=== PATIENT | female | born 1955 | race Caucasian/White ===

== ENCOUNTER 2018-03-08 03:13 | Inpatient (IN) | payer MEDICARE ==
[~2018-03-08] VITALS: Ht 167.6 cm; Wt 129.8 kg
[2018-03-08] MEDS ORDERED: LATA2.5D3 EACHEYE (03:31)
[2018-03-08] MEDS ORDERED: PRED5DRO16 OD (03:31)
[2018-03-08] MEDS ORDERED: ACET325T9 PO (03:31)
[2018-03-08] MEDS ORDERED: MINE3.5O31 OU (03:31)
[2018-03-08] MEDS ORDERED: CHOL10003 PO (03:31)
[2018-03-08] MEDS ORDERED: POLY17PO5 PO (03:31)
[2018-03-08] MEDS ORDERED: ATOR10TA60 PO (03:31)
[2018-03-08] MEDS ORDERED: ASPI-621 PO (03:31)
[2018-03-08] MEDS ORDERED: GABA-585 PO (03:31)
[2018-03-08] MEDS ORDERED: APIX5TAB3 PO (03:31)
[2018-03-08] MEDS ORDERED: DEXT15DR5 EACHEYE (03:31)
[2018-03-08] MEDS ORDERED: NYST60PO TP (03:31)
[2018-03-08] MEDS ORDERED: MOXI3DRO2 OD (03:31)
[2018-03-08] MEDS ORDERED: CARB1TAB2 PO (03:31)
[2018-03-08] MEDS ORDERED: TIMO10DR5 EACHEYE (03:31)
[2018-03-08] MEDS ORDERED: BRIM5DRO4 OU (03:31)
[2018-03-08] MEDS ORDERED: QUET100T4 PO (03:31)
[2018-03-08] MEDS ORDERED: SENN1TAB7 PO (03:31)
[2018-03-08] MEDS ORDERED: QUET50TA5 PO (03:31)
[2018-03-08] MEDS ORDERED: VENL150C6 PO (03:31)
[2018-03-08] MEDS ORDERED: LEVO75TA5 PO (03:31)
[2018-03-08] MEDS ORDERED: METHYL SALICYLATE/MENTHOL TOPICAL OINTMENT 29GM TUBE. TP PRN (03:45)
[2018-03-08] MEDS ORDERED: ACETAMINOPHEN 325 MG TABLET PO PRN (03:45)
[2018-03-08] MEDS ORDERED: MAG HYDROX/AL HYDROX/SIMETH 30 ML ORAL.SUSP PO PRN (03:45)
[2018-03-08] MEDS ORDERED: ANTI-COAG MONITOR BY PHARMACY. MC PRN (05:00)
[2018-03-08] MEDS ORDERED: LEVOTHYROXINE 75 MCG TABLET PO SCH (07:30)
[2018-03-08] MEDS ORDERED: POLYETHYLENE GLYCOL 3350 17 GM PACKET. PO PRN (09:00)
[2018-03-08 09:27] LABS: BASO % 1 % (0-3); EOS # 0.1 x10^3/uL (0.0-0.7); EOS % 1 % (0-3); HEMATOCRIT 41.6 % (36.0-47.0); HEMOGLOBIN 13.9 g/dL (12.0-15.5); LYMPH # 0.9 x10^3/uL (1.0-4.8); LYMPH % 21 % (24-48); MEAN CORPUSCULAR HEMOGLOBIN 31 pg (25-35); MEAN CORPUSCULAR HGB CONC 34 g/dL (31-37); MEAN CORPUSCULAR VOLUME 92 fL (79-100); MONO # 0.4 x10^3/uL (0.0-1.1); MONO % 8 % (0-9); NEUT % 68 % (31-73); PLATELET COUNT 376 x10^3/uL (140-400); RED BLOOD COUNT 4.53 x10^6/uL (3.50-5.40); RED CELL DISTRIBUTION WIDTH 13.4 % (11.5-14.5); WHITE BLOOD COUNT 4.4 x10^3/uL (4.0-11.0)
[2018-03-08 09:48] LABS: ALBUMIN/GLOBULIN RATIO 0.8 (1.0-1.7); CALCIUM 9.3 mg/dL (8.5-10.1); CREATININE 0.8 mg/dL (0.6-1.0); GFR 73.2; MAGNESIUM 2.1 mg/dL (1.8-2.4); POTASSIUM 4.2 mmol/L (3.5-5.1); TOTAL BILIRUBIN 0.5 mg/dL (0.2-1.0); TOTAL PROTEIN 6.8 g/dL (6.4-8.2)
[2018-03-08] MEDS: CHOLECALCIFEROL (VITAMIN D3) 1,000 UNIT TABLET PO SCH (10:53)
[2018-03-08] MEDS: SENNOSIDES/DOCUSATE 8.6/50MG TABLET. PO SCH (10:53)
[2018-03-08] MEDS: VENLAFAXINE 50 MG TABLET. PO SCH ×3 (10:53→20:26)
[2018-03-08] MEDS: QUEtiapine 50 MG TABLET. PO SCH ×2 (10:53→20:28)
[2018-03-08] MEDS: CARBIDOPA/LEVODOPA 25/100MG TABLET PO SCH ×4 (10:53→20:26)
[2018-03-08] MEDS: APIXABAN 5 MG TABLET. PO SCH ×2 (10:53→20:26)
[2018-03-08] MEDS: GABAPENTIN 100 MG CAPSULE. PO SCH ×3 (10:54→20:26)
[2018-03-08] MEDS: prednisoLONE ACETATE 1% OPHTH SUSPENSION 5ML BOTTLE. OD SCH ×2 (10:56→11:00)
[2018-03-08] MEDS: MOXIFLOXACIN 0.5% OPHTH SOLUTION 3ML BOTTLE. OD SCH ×5 (10:57→20:23)
[2018-03-08] MEDS: BRIMONIDINE 0.2% OPHTH SOLUTION 5ML BOTTLE. OU SCH ×3 (10:58→20:23)
[2018-03-08] MEDS: POLYVINYL ALCOHOL 1.4% OPHTH SOLUTION 15ML BOTTLE. OU SCH ×5 (10:59→20:24)
[2018-03-08] MEDS: TIMOLOL 0.5% OPHTH SOLUTION 5ML BOTTLE. OU SCH ×2 (11:00→20:24)
[2018-03-08 13:43] LABS: THYROID STIM HORMONE (TSH) 4.955 uIU/mL (0.358-3.740)
[2018-03-08 16:38] VITALS: BP 146/92
[2018-03-08] MEDS ORDERED: traZODone 50 MG TABLET. PO PRN (19:30)
[2018-03-08] MEDS: MINERAL OIL/PETROLATUM,WHITE OPHTH OINT 3.5GM TUBE. OU SCH (20:24)
[2018-03-08] MEDS: LATANOPROST 0.005% OPHTH SOLUTION 2.5ML BOTTLE. OU SCH (20:25)
[2018-03-08] MEDS: traZODone 50 MG TABLET. PO SCH (20:26)
[2018-03-08] MEDS: ATORVASTATIN CALCIUM 10 MG TABLET. PO SCH (20:28)
[2018-03-08] MEDS: NYSTATIN TOPICAL POWDER 15GM BOTTLE. TP PRN (20:46)
[2018-03-08 21:18] LABS: BACTERIA,URINE MANY /HPF (0-FEW); BILIRUBIN,URINE NEG (NEG); CLARITY,URINE CLOUDY; COLOR,URINE YELLOW; GLUCOSE,URINE NEG (NEG); NITRITE,URINE POS (NEG); SQUAMOUS EPITHELIAL CELL,UR MOD /LPF; UROBILINOGEN,URINE 0.2 mg/dL (0.2 mg/dL); WBC,URINE >40 /HPF (0-4)
[2018-03-08 22:16] LABS: THYROXINE 8.3 ug/dL (4.5-12.0)
--- NOTE | 2018-03-08 23:05 | PDOC ---
Exam Note: Massimo Note: Please also refer to the separate dictated note~for this date of service dictated separately.~Patient seen individually. Discussed the patient with Nursing staff reviewed the chart.~Reviewed interim history and current functioning. Reviewed vital signs,~Labs/ Radiology~and current medications noted below. Continue current treatment with the changes noted in the dictated addendum note Assessment: Vital Signs: Vital Signs Date Time Temp Pulse Resp B/P (MAP) Pulse Ox O2 Delivery O2 Flow Rate FiO2 03/08/18 16:38 98.3 87 18 146/92 (110) 95 Room Air Labs: Laboratory Tests Test 03/08/18 09:08 03/08/18 18:18 White Blood Count 4.4 x10^3/uL (4.0-11.0) Red Blood Count 4.53 x10^6/uL (3.50-5.40) Hemoglobin 13.9 g/dL (12.0-15.5) Hematocrit 41.6 % (36.0-47.0) Mean Corpuscular Volume 92 fL (79-100) Mean Corpuscular Hemoglobin 31 pg (25-35) Mean Corpuscular Hemoglobin Concent 34 g/dL (31-37) Red Cell Distribution Width 13.4 % (11.5-14.5) Platelet Count 376 x10^3/uL (140-400) Neutrophils (%) (Auto) 68 % (31-73) Lymphocytes (%) (Auto) 21 % (24-48) L Monocytes (%) (Auto) 8 % (0-9) Eosinophils (%) (Auto) 1 % (0-3) Basophils (%) (Auto) 1 % (0-3) Neutrophils # (Auto) 3.0 x10^3uL (1.8-7.7) Lymphocytes # (Auto) 0.9 x10^3/uL (1.0-4.8) L Monocytes # (Auto) 0.4 x10^3/uL (0.0-1.1) Eosinophils # (Auto) 0.1 x10^3/uL (0.0-0.7) Basophils # (Auto) 0.0 x10^3/uL (0.0-0.2) Sodium Level 144 mmol/L (136-145) Potassium Level 4.2 mmol/L (3.5-5.1) Chloride Level 108 mmol/L (98-107) H Carbon Dioxide Level 31 mmol/L (21-32) Anion Gap 5 (6-14) L Blood Urea Nitrogen 12 mg/dL (7-20) Creatinine 0.8 mg/dL (0.6-1.0) Estimated GFR (Cockcroft-Gault) 73.2 BUN/Creatinine Ratio 15 (6-20) Glucose Level 117 mg/dL (70-99) H Calcium Level 9.3 mg/dL (8.5-10.1) Magnesium Level 2.1 mg/dL (1.8-2.4) Iron Level 65 ug/dL (50-170) Total Iron Binding Capacity 265 ug/dL (250-450) Iron Saturation 25 % (15-34) Total Bilirubin 0.5 mg/dL (0.2-1.0) Aspartate Amino Transferase (AST) 15 U/L (15-37) Alanine Aminotransferase (ALT) 22 U/L (14-59) Alkaline Phosphatase 108 U/L (46-116) Total Protein 6.8 g/dL (6.4-8.2) Albumin 3.0 g/dL (3.4-5.0) L Albumin/Globulin Ratio 0.8 (1.0-1.7) L Triglycerides Level 77 mg/dL (0-150) Cholesterol Level 153 mg/dL (0-200) LDL Cholesterol, Calculated 92 mg/dL (0-100) VLDL Cholesterol, Calculated 15 mg/dL (0-40) Non-HDL Cholesterol Calculated 107 mg/dL (0-129) HDL Cholesterol 46 mg/dL (40-60) Cholesterol/HDL Ratio 3.0 Vitamin B12 Level 551 pg/mL (247-911) 25-Hydroxy Vitamin D Total 34.2 ng/mL (30-100) Thyroid Stimulating Hormone (TSH) 4.955 uIU/mL (0.358-3.740) Thyroxine (T4) 8.3 ug/dL (4.5-12.0) Total Triiodothyronine (TT3) 98 ng/dL (71-180) Treponema pallidum Antibody Nonreactive (Nonreactive) Urine Collection Type Unknown Urine Color Yellow Urine Clarity Cloudy Urine pH 7.0 Urine Specific [place] 1.010 Urine Protein Neg (NEG-TRACE) Urine Glucose (UA) Neg mg/dL (NEG) Urine Ketones (Stick) Neg mg/dL (NEG) Urine Blood Trace (NEG) Urine Nitrite Pos (NEG) Urine Bilirubin Neg (NEG) Urine Urobilinogen Dipstick 0.2 mg/dL (0.2 mg/dL) Urine Leukocyte Esterase Large (NEG) Urine RBC 1-2 /HPF (0-2) Urine WBC >40 /HPF (0-4) Urine Squamous Epithelial Cells Mod /LPF Urine Bacteria Many /HPF (0-FEW) Current Medications: Meds: Current Medications Olanzapine (ZyPREXA ZYDIS) 2.5 mg PRN Q2HR PRN PO Psychosis; Start 03/08/18 at 03:45 Acetaminophen (Tylenol) 650 mg PRN Q8HRS PRN PO PAIN / TEMP; Start 03/08/18 at 03:45; Status UNV Brimonidine Tartrate (Alphagan) 1 drop BID OU Last administered on 03/08/18 20: 23; Start 03/08/18 at 09:00 Carbidopa/Levodopa (Sinemet 25/100) 1 tab QID PO Last administered on 03/08/18 20:26; Start 03/08/18 at 09:00 Vitamin D (Vitamin D3) 1,000 unit DAILY PO Last administered on 03/08/18 10:53 ; Start 03/08/18 at 09:00 Gabapentin (Neurontin) 100 mg TID PO Last administered on 03/08/18 20:26; Start 03/08/18 at 09:00 Levothyroxine Sodium (Synthroid) 75 mcg DAILYAC PO Last administered on 10:53; Start 03/08/18 at 07:30; Stop 03/08/18 at 11:19; Status DC Multi-Ingred Cream/Lotion/Oil/ Oint (Artificial Tears Eye Ointment) 1 jose a HS OU Last administered on 03/08/18 20:24; Start 03/08/18 at 21:00 Moxifloxacin HCl (Vigamox) 1 drop QID OD Last administered on 03/08/18 20:23; Start 03/08/18 at 09:00; Stop 03/30/18 at 21:05 Nystatin (Nystop) 1 jose a PRN BID PRN TP RASH Last administered on 03/08/18 20:46 ; Start 03/08/18 at 03:45 Prednisolone Acetate (Pred Forte) 1 drop DAILY OD ; Start 03/08/18 at 09:00; Stop 03/30/18 at 09:05 Senna/Docusate Sodium (Senna Plus) 2 tab DAILY PO Last administered on 10:53; Start 03/08/18 at 09:00 Apixaban (Eliquis) 5 mg BID PO Last administered on 03/08/18 20:26; Start at 09:00 Acetaminophen/ Aspirin/Caffeine (Excedrin Migraine) 1 tab PRN Q6HRS PRN PO MIGRAINE HEADACHE; Start 03/08/18 at 04:00 Atorvastatin Calcium (Lipitor) 10 mg QHS PO Last administered on 03/08/18 20:28 ; Start 03/08/18 at 21:00 Artificial Tears (Artificial Tears) 1 drop QID OU Last administered on 20:24; Start 03/08/18 at 09:00 Latanoprost (Xalatan) 1 drop QHS OU Last administered on 03/08/18 20:25; Start 03/08/18 at 21:00 Polyethylene Glycol (miraLAX) 17 gm PRN Q8HRS PRN PO CONSTIPATION; Start at 09:00 Timolol Maleate (Timoptic 0.5% [facility]) 1 drop BID OU Last administered on 20:24; Start 03/08/18 at 09:00 Quetiapine Fumarate (SEROquel) 50 mg DAILY PO Last administered on 03/08/18 10: 53; Start 03/08/18 at 09:00 Quetiapine Fumarate (SEROquel) 150 mg QHS PO Last administered on 03/08/18 20: 28; Start 03/08/18 at 21:00 Venlafaxine HCl (Effexor) 50 mg TID PO Last administered on 03/08/18 20:26; Start 03/08/18 at 09:00 Acetaminophen (Tylenol) 650 mg PRN Q6HRS PRN PO PAIN / TEMP; Start 03/08/18 at 03:45 Multi-Ingredient Ointment (Analgesic [place]) 1 jose a PRN QID PRN TP MUSCLE PAIN; Start 03/08/18 at 03:45 Al Hydroxide/Mg Hydroxide (Mylanta Plus Xs) 15 ml PRN AFTMEALHC PRN PO DYSPEPSIA; Start 03/08/18 at 03:45 Magnesium Hydroxide (Milk Of Magnesia) 2,400 mg PRN QHS PRN PO CONSTIPATION; Start 03/08/18 at 03:45 Info (Anti-Coagulation Monitoring By Pharmacy) 1 each PRN DAILY PRN [facility] SEE COMMENTS; Start 03/08/18 at 05:00 Levothyroxine Sodium (Synthroid) 75 mcg DAILY06 PO ; Start 03/09/18 at 06:00 Trazodone HCl (Desyrel) 50 mg QHS PO Last administered on 03/08/18at 20:26; Start 03/08/18 at 21:00 Trazodone HCl (Desyrel) 50 mg PRN QHS PRN PO Insomnia; Start 03/08/18 at 19:30 Active Scripts Active Reported Vitamin D3 (Cholecalciferol (Vitamin D3)) 1,000 Unit Tablet 1,000 Unit PO DAILY Vigamox (Moxifloxacin Hcl) 3 Ml Drops 1 Drop OD QID Venlafaxine Hcl Er (Venlafaxine Hcl) 150 Mg Cap.er.24h 150 Mg PO DAILY Timoptic (Timolol Maleate) 10 Ml Drops 1 Drop EACHEYE BID Seroquel (Quetiapine Fumarate) 50 Mg Tablet 50 Mg PO DAILY Seroquel (Quetiapine Fumarate) 100 Mg Tablet 150 Mg PO HS Senna-Docusate Sodium Tablet (Sennosides/Docusate Sodium) 1 Each Tablet 2 Tab PO DAILY Prednisolone Acetate 5 Ml Drops.susp 1 Drop OD DAILY Nystop (Nystatin) 60 Gm Powder 1 Jose A TP PRN BID PRN Artificial Tears Eye Drops (Dextran 70/Hypromellose) 15 Ml Drops 1 Drop EACHEYE QID Miralax (Polyethylene Glycol 3350) 17 Gm Powd.pack 17 Gm PO PRN Q8HRS PRN Artificial Tears Eye Oint (Mineral Oil/Petrolatum,White) 3.5 Gm Oint...g. 1 Drop OU HS Levothyroxine Sodium 75 Mcg Tablet 75 Mcg PO DAILYAC Latanoprost 2.5 Ml Drops 1 Drop EACHEYE QHS Gabapentin 100 Mg Capsule 100 Mg PO TID Excedrin Extra Strength Caplet (Aspirin/Acetaminophen/Caffeine) 1 Each Tablet 1 Tab PO PRN Q5HRS Eliquis (Apixaban) 5 Mg Tablet 5 Mg PO BID Sinemet 25-100 Mg Tablet (Carbidopa/Levodopa) 1 Each Tablet 1 Tab PO QID Brimonidine Tartrate 5 Ml Drops 1 Drop OU BID Atorvastatin Calcium 10 Mg Tablet 10 Mg PO QHS Tylenol (Acetaminophen) 325 Mg Tablet 650 Mg PO PRN Q8HRS PRN I have reviewed the current psychotropics carefully including drug interactions. Risk benefit ratio favors no change other than as noted in my dictated progress note. Diagnosis: Problems: (1) Anxiety disorder (2) Bipolar affective, mixed, sev w/ psych (3) Dementia, vascular, with delusions (4) Impulse control disorder HERMILO LEWIS MD Mar 08, 2018 23:05
[2018-03-08 23:12] LABS: HEMOGLOBIN A1C 5.6 % (4.8-5.6)
--- NOTE | 2018-03-08 23:15 | HP ---
ADMIT DATE: 03/08/2018 PSYCHIATRIC ADMISSION HISTORY/EVALUATION This note covers elements not covered in my initial note 03/08/2018. IDENTIFYING DATA: The patient is a 62-year-old female referred to us from Emergency Room at [facility] where she was presented from [facility] where she resides. The patient reportedly has a history of bipolar disorder, mixed with psychotic features and has been increasingly agitated, aggressive, combative with staff at the [facility], throwing things. She has been manic, disorganized behaviors have been physically aggressive towards staff and the staff described her as being "manic." She is throwing things at the nursing staff, extremely disorganized. Behaviors have been deemed dangerous, out of control, referred for inpatient psychiatric stabilization. CHIEF COMPLAINT: "I need to go. I need to go." The patient was repeating the above, wanting to get back to her room from where I was interviewing her. HISTORY OF PRESENT ILLNESS: I have discussed with nursing staff, reviewed historical information from the ER prior to the patient's admission. HISTORY OF PRESENT ILLNESS: The patient has been residing at [facility] for sometime, but in the recent past she has been quite aggressive, more confused, psychotic, manic, disorganized. No active suicidal or homicidal ideation. She is also being increasingly forgetful. PAST PSYCHIATRIC HISTORY: As above. CODE STATUS: Full code. Accu-Cheks: None. DIET: Regular. Takes medications whole. Ambulates up per her wheelchair. CURRENT PSYCHOTROPICS: Seroquel 150 mg at bedtime and 50 mg in the morning, trazodone 50 mg at bedtime, may repeat x 1. Insomnia has been added by me today since she slept just one hour last night. She is also on Effexor ER 150 mg a day and Zyprexa p.r.n. FAMILY HISTORY: Noncontributory. SOCIAL HISTORY: No alcohol, drug abuse, physical, sexual or elder abuse history is noted. Not known to be a perpetrator. REACTION TO HOSPITALIZATION: The patient accepting of it somewhat oblivious to it. ASSETS: Supportive living at the above [facility]. MENTAL STATUS EXAM: The patient was seen individually evening of 03/08/2018. She is in a wheelchair, rambling, somewhat repetitive as noted above. Insight, judgment, recent memory is impaired. Language function intact. Attention span short. Mood and affect remain somewhat labile. No active suicidal or homicidal ideation. IMPRESSION: Bipolar 1 disorder, mixed with psychotic features; anxiety disorder, unspecified; impulse control disorder, unspecified; major neurocognitive disorder, probably early vascular with depression. PLAN: Admit to the geropsychiatry unit at [facility]. I will see the patient daily individually from a psychiatric standpoint, medical followup per Dr. Stinson/Dr. Adam. The patient slept just one hour last night. We will add trazodone 50 mg at bedtime, may repeat x 1 p.r.n. insomnia. The patient slept just 1 hour previous night. We will maintain Effexor and Seroquel at current dosage. Make further adjustments as clinically indicated. ADDENDUM PAST MEDICAL HISTORY: Positive for glaucoma, movement disorder, questionable tardive dyskinesia, Parkinson's disease, though the family denies she has any history of Parkinson's; hyperlipidemia, hypothyroidism, muscle weakness, obesity, osteoarthritis, chronic embolism. MAN Dewayne LEWIS MD DR: LIZZETH/david JOB#: [id number] / [id number]
[2018-03-09] MEDS: LEVOTHYROXINE 75 MCG TABLET PO SCH (05:56)
[2018-03-09 06:18] VITALS: BP 129/83
[2018-03-09] MEDS: prednisoLONE ACETATE 1% OPHTH SUSPENSION 5ML BOTTLE. OD SCH (07:52)
[2018-03-09] MEDS: BRIMONIDINE 0.2% OPHTH SOLUTION 5ML BOTTLE. OU SCH ×2 (07:53→20:17)
[2018-03-09] MEDS: POLYVINYL ALCOHOL 1.4% OPHTH SOLUTION 15ML BOTTLE. OU SCH ×4 (07:53→20:17)
[2018-03-09] MEDS: MOXIFLOXACIN 0.5% OPHTH SOLUTION 3ML BOTTLE. OD SCH ×4 (07:53→20:17)
[2018-03-09] MEDS: TIMOLOL 0.5% OPHTH SOLUTION 5ML BOTTLE. OU SCH ×2 (07:54→20:17)
[2018-03-09] MEDS: APIXABAN 5 MG TABLET. PO SCH ×2 (07:54→20:05)
[2018-03-09] MEDS: VENLAFAXINE 50 MG TABLET. PO SCH ×3 (07:54→20:05)
[2018-03-09] MEDS: GABAPENTIN 100 MG CAPSULE. PO SCH ×3 (07:54→20:05)
[2018-03-09] MEDS: QUEtiapine 50 MG TABLET. PO SCH ×2 (07:55→20:04)
[2018-03-09] MEDS: SENNOSIDES/DOCUSATE 8.6/50MG TABLET. PO SCH (07:55)
[2018-03-09] MEDS: CHOLECALCIFEROL (VITAMIN D3) 1,000 UNIT TABLET PO SCH (07:55)
[2018-03-09] MEDS: CARBIDOPA/LEVODOPA 25/100MG TABLET PO SCH ×4 (07:55→20:05)
[2018-03-09 16:19] VITALS: BP 104/80
[2018-03-09] MEDS: traZODone 50 MG TABLET. PO SCH (20:05)
[2018-03-09] MEDS: ATORVASTATIN CALCIUM 10 MG TABLET. PO SCH (20:05)
[2018-03-09] MEDS: LATANOPROST 0.005% OPHTH SOLUTION 2.5ML BOTTLE. OU SCH (20:17)
[2018-03-09] MEDS: MINERAL OIL/PETROLATUM,WHITE OPHTH OINT 3.5GM TUBE. OU SCH (20:17)
[2018-03-09] MEDS: CEFPODOXIME PROXETIL 100 MG TABLET PO SCH (20:19)
[2018-03-09] MEDS: ASA/APAP/CAFFEINE 250/250/65MG TABLET. PO PRN (20:49)
--- NOTE | 2018-03-09 22:36 | PDOC ---
Exam Note: Massimo Note: Please also refer to the separate dictated note~for this date of service dictated separately.~Patient seen individually. Discussed the patient with Nursing staff reviewed the chart.~Reviewed interim history and current functioning. Reviewed vital signs,~Labs/ Radiology~and current medications noted below. Continue current treatment with the changes noted in the dictated addendum note Assessment: Vital Signs: Vital Signs Date Time Temp Pulse Resp B/P (MAP) Pulse Ox O2 Delivery O2 Flow Rate FiO2 03/09/18 16:19 98.5 63 17 104/80 (88) 98 Room Air I&O Intake and Output 03/09/18 06:59 Intake Total 1120 ml Balance 1120 ml Intake Oral 1120 ml # Voids 1 # Bowel Movements 1 Current Medications: Meds: Current Medications Olanzapine (ZyPREXA ZYDIS) 2.5 mg PRN Q2HR PRN PO Psychosis; Start 03/08/18 at 03:45 Acetaminophen (Tylenol) 650 mg PRN Q8HRS PRN PO PAIN / TEMP; Start 03/08/18 at 03:45; Status UNV Brimonidine Tartrate (Alphagan) 1 drop BID OU Last administered on 03/09/18 20: 17; Start 03/08/18 at 09:00 Carbidopa/Levodopa (Sinemet 25/100) 1 tab QID PO Last administered on 03/09/18 20:05; Start 03/08/18 at 09:00 Vitamin D (Vitamin D3) 1,000 unit DAILY PO Last administered on 03/09/18at 07:55 ; Start 03/08/18 at 09:00 Gabapentin (Neurontin) 100 mg TID PO Last administered on 03/09/18at 20:05; Start 03/08/18 at 09:00 Levothyroxine Sodium (Synthroid) 75 mcg DAILYAC PO Last administered on at 10:53; Start 03/08/18 at 07:30; Stop 03/08/18 at 11:19; Status DC Multi-Ingred Cream/Lotion/Oil/ Oint (Artificial Tears Eye Ointment) 1 jose a HS OU Last administered on 03/09/18 20:17; Start 03/08/18 at 21:00 Moxifloxacin HCl (Vigamox) 1 drop QID OD Last administered on 03/09/18 20:17; Start 03/08/18 at 09:00; Stop 03/30/18 at 21:05 Nystatin (Nystop) 1 jose a PRN BID PRN TP RASH Last administered on 03/08/18 20:46 ; Start 03/08/18 at 03:45 Prednisolone Acetate (Pred Forte) 1 drop DAILY OD Last administered on 07:52; Start 03/08/18 at 09:00; Stop 03/30/18 at 09:05 Senna/Docusate Sodium (Senna Plus) 2 tab DAILY PO Last administered on 07:55; Start 03/08/18 at 09:00 Apixaban (Eliquis) 5 mg BID PO Last administered on 03/09/18 20:05; Start at 09:00 Acetaminophen/ Aspirin/Caffeine (Excedrin Migraine) 1 tab PRN Q6HRS PRN PO MIGRAINE HEADACHE Last administered on 03/09/18 20:49; Start 03/08/18 at 04:00 Atorvastatin Calcium (Lipitor) 10 mg QHS PO Last administered on 03/09/18 20:05 ; Start 03/08/18 at 21:00 Artificial Tears (Artificial Tears) 1 drop QID OU Last administered on 20:17; Start 03/08/18 at 09:00 Latanoprost (Xalatan) 1 drop QHS OU Last administered on 03/09/18 20:17; Start 03/08/18 at 21:00 Polyethylene Glycol (miraLAX) 17 gm PRN Q8HRS PRN PO CONSTIPATION; Start at 09:00 Timolol Maleate (Timoptic 0.5% [facility]) 1 drop BID OU Last administered on 20:17; Start 03/08/18 at 09:00 Quetiapine Fumarate (SEROquel) 50 mg DAILY PO Last administered on 03/09/18 07: 55; Start 03/08/18 at 09:00 Quetiapine Fumarate (SEROquel) 150 mg QHS PO Last administered on 03/09/18 20: 04; Start 03/08/18 at 21:00 Venlafaxine HCl (Effexor) 50 mg TID PO Last administered on 7/7/18at 20:05; Start 03/08/18 at 09:00 Acetaminophen (Tylenol) 650 mg PRN Q6HRS PRN PO PAIN / TEMP; Start 03/08/18 at 03:45 Multi-Ingredient Ointment (Analgesic [place]) 1 jose a PRN QID PRN TP MUSCLE PAIN; Start 03/08/18 at 03:45 Al Hydroxide/Mg Hydroxide (Mylanta Plus Xs) 15 ml PRN AFTMEALHC PRN PO DYSPEPSIA; Start 03/08/18 at 03:45 Magnesium Hydroxide (Milk Of Magnesia) 2,400 mg PRN QHS PRN PO CONSTIPATION; Start 03/08/18 at 03:45 Info (Anti-Coagulation Monitoring By Pharmacy) 1 each PRN DAILY PRN MC SEE COMMENTS; Start 03/08/18 at 05:00; Status Cancel Levothyroxine Sodium (Synthroid) 75 mcg DAILY06 PO Last administered on at 05:56; Start 03/09/18 at 06:00 Trazodone HCl (Desyrel) 50 mg QHS PO Last administered on 03/09/18at 20:05; Start 03/08/18 at 21:00 Trazodone HCl (Desyrel) 50 mg PRN QHS PRN PO Insomnia; Start 03/08/18 at 19:30 Cefpodoxime Proxetil (Vantin) 200 mg BID PO Last administered on 03/09/18at 20:19 ; Start 03/09/18 at 21:00 Active Scripts Active Reported Vitamin D3 (Cholecalciferol (Vitamin D3)) 1,000 Unit Tablet 1,000 Unit PO DAILY Vigamox (Moxifloxacin Hcl) 3 Ml Drops 1 Drop OD QID Venlafaxine Hcl Er (Venlafaxine Hcl) 150 Mg Cap.er.24h 150 Mg PO DAILY Timoptic (Timolol Maleate) 10 Ml Drops 1 Drop EACHEYE BID Seroquel (Quetiapine Fumarate) 50 Mg Tablet 50 Mg PO DAILY Seroquel (Quetiapine Fumarate) 100 Mg Tablet 150 Mg PO HS Senna-Docusate Sodium Tablet (Sennosides/Docusate Sodium) 1 Each Tablet 2 Tab PO DAILY Prednisolone Acetate 5 Ml Drops.susp 1 Drop OD DAILY Nystop (Nystatin) 60 Gm Powder 1 Jose A TP PRN BID PRN Artificial Tears Eye Drops (Dextran 70/Hypromellose) 15 Ml Drops 1 Drop EACHEYE QID Miralax (Polyethylene Glycol 3350) 17 Gm Powd.pack 17 Gm PO PRN Q8HRS PRN Artificial Tears Eye Oint (Mineral Oil/Petrolatum,White) 3.5 Gm Oint...g. 1 Drop OU HS Levothyroxine Sodium 75 Mcg Tablet 75 Mcg PO DAILYAC Latanoprost 2.5 Ml Drops 1 Drop EACHEYE QHS Gabapentin 100 Mg Capsule 100 Mg PO TID Excedrin Extra Strength Caplet (Aspirin/Acetaminophen/Caffeine) 1 Each Tablet 1 Tab PO PRN Q5HRS Eliquis (Apixaban) 5 Mg Tablet 5 Mg PO BID Sinemet 25-100 Mg Tablet (Carbidopa/Levodopa) 1 Each Tablet 1 Tab PO QID Brimonidine Tartrate 5 Ml Drops 1 Drop OU BID Atorvastatin Calcium 10 Mg Tablet 10 Mg PO QHS Tylenol (Acetaminophen) 325 Mg Tablet 650 Mg PO PRN Q8HRS PRN I have reviewed the current psychotropics carefully including drug interactions. Risk benefit ratio favors no change other than as noted in my dictated progress note. Diagnosis: Problems: (1) Anxiety disorder (2) Bipolar affective, mixed, sev w/ psych (3) Dementia, vascular, with delusions (4) Impulse control disorder HERMILO LEWIS MD Mar 09, 2018 22:36
--- NOTE | 2018-03-10 05:20 | CONS ---
DATE OF CONSULTATION: 03/09/2018 REASON FOR CONSULTATION: Medical management. HISTORY OF PRESENT ILLNESS: The patient is a 62-year-old female patient, a resident at [facility], where she has resided since 2012. She apparently was getting into an altercation with residential staff and was transported to the [facility] Emergency Room, where she was evaluated. She was diagnosed with severe manic episode with psychosis on a background of bipolar disorder and was [facility] for inpatient psychiatric stabilization. PAST MEDICAL HISTORY: Significant for Parkinson's disease, tardive dyskinesia, hyperlipidemia, hypothyroidism and glaucoma. The patient herself does not give any useful information, actually refused even talk to me or allow me to examine her. ALLERGIES: SHE IS ALLERGIC TO SULFA DRUGS AND AMOXICILLIN. MEDICATIONS: She is currently on following medications: She is on apixaban 5 mg twice a day, atorvastatin calcium 10 mg at bedtime, Excedrin Extra Strength 1 tablet every 5 hours, Tylenol 650 mg every 8 hours as needed, gabapentin 100 mg 3 times a day, venlafaxine 150 mg p.o. daily, Seroquel 150 mg at bedtime, Seroquel 50 mg daily. She is on carbidopa/levodopa 25/100 mg 1 tablet 4 times a day, moxifloxacin for Vigamox 1 drop to both eyes 4 times a day, prednisolone acetate 1 drop both eyes daily. She is on brimonidine tartrate 1 drop to both eyes b.i.d. and timolol maleate 1 drop to each eye twice a day, latanoprost 1 drop to both eyes at bedtime. She is on artificial tears 1 drop to each eye 4 times a day. She is also on MiraLax 17 grams daily p.r.n. for constipation, Senna-S 2 tablets once a day, levothyroxine sodium 75 mcg daily, Nystatin powder applied topically twice a day, cholecalciferol, vitamin D3 is 1000 international units once a day. FAMILY HISTORY: Noncontributory. SOCIAL HISTORY: She is a resident at [facility]. She does not smoke, drink alcohol or use any recreational drugs. REVIEW OF SYSTEMS: Unobtainable. PHYSICAL EXAMINATION: GENERAL: On examining her, she was sitting comfortably in a wheelchair, in no apparent respiratory distress. No pallor, jaundice, cyanosis, or thyromegaly. No jugular venous distension. No lower limb edema. VITAL SIGNS: Her heart rate was 58, blood pressure 129/83, temperature was 97.6, respiratory rate 14, and oxygen saturation was 93%. The patient did not for allowing me to examine her, but based on examination of other institution, she seemed to be grossly normal in terms of her ____ chest examination, abdomen. NEUROLOGIC: She clearly has prominent tardive dyskinesia with orofacial movement and prominent parkinsonian tremors in both hands. She apparently is mostly chair bound, although she can stand with assist according to nursing staff. LABORATORY DATA: Showed a serum sodium 144, potassium 4.2, chloride 108, bicarbonate 31, anion gap of 5, BUN 12, creatinine 0.8, estimated GFR was 73 mL per minute. Her glucose was 117, calcium was 9.3, magnesium was 2.1. Total bilirubin, AST, ALT, alkaline phosphatase were normal. Total protein was 6.8, albumin 3. Her white cell count was 4400, hemoglobin 14, hematocrit 42, MCV 92, and platelet count of 376,000 with a manual differential showed 68% polymorphs, 21% lymphocytes and 8% monocytes. Her hemoglobin A1c was normal at 5.6%. Serum iron was 65, TIBC was 265 and percent saturation was 25%. Her serum triglycerides were 77, total cholesterol 153, LDL was 92, VLDL was 15, and HDL cholesterol was 46 and the ratio was 3. Vitamin B12 was 551 pg/mL and 25-hydroxy vitamin D was 34. TSH was slightly elevated at 4.955. However, total T4 and total T3 were within normal range. Her urinalysis showed the urine was yellow, cloudy with a pH of 7, specific gravity of 1.010. The urine was negative for protein, glucose, ketones, trace of blood, positive for nitrite. There was large amount of leukocyte esterase, 1-2 rbc's, more than 40 wbc's with many bacteria. Her Treponema pallidum antibodies were nonreactive. IMPRESSION: In summary, this is a 62-year-old female patient, who was admitted [facility] on account of severe manic episode without psychosis on a background of bipolar disorder. She has a multitude of medical problems including Parkinson's disease, tardive dyskinesia, hypothyroidism, hyperlipidemia, glaucoma and the patient apparently is wheelchair bound. Her vital signs seem to be stable as well as her lab work, so all in all, she seemed to be stable at least from her medical point of view, although she has advanced Parkinson's disease and she is mostly chair bound. Apparently, Dr. Mccoy was consulted and he is planning to add Requip. From a medical point of view, she seemed to be on the appropriate medication for hyperlipidemia and hypothyroidism. Thank you, Dr. Tong for allowing me to participate in the care of this patient. GALE HURST MD DR: SANDRA/david JOB#: [id number] / [id number]
[2018-03-10] MEDS: LEVOTHYROXINE 75 MCG TABLET PO SCH (05:34)
[2018-03-10 06:06] VITALS: BP 114/74
[2018-03-10] MEDS: CARBIDOPA/LEVODOPA 25/100MG TABLET PO SCH ×4 (08:38→20:42)
[2018-03-10] MEDS: VENLAFAXINE 50 MG TABLET. PO SCH ×3 (08:38→20:42)
[2018-03-10] MEDS: SENNOSIDES/DOCUSATE 8.6/50MG TABLET. PO SCH (08:38)
[2018-03-10] MEDS: LACTOBACILLUS RHAMNOSUS GG 1 CAPSULE. PO SCH ×2 (08:38→20:42)
[2018-03-10] MEDS: GABAPENTIN 100 MG CAPSULE. PO SCH ×3 (08:38→20:43)
[2018-03-10] MEDS: QUEtiapine 50 MG TABLET. PO SCH ×2 (08:38→20:42)
[2018-03-10] MEDS: APIXABAN 5 MG TABLET. PO SCH ×2 (08:38→20:42)
[2018-03-10] MEDS: CEFPODOXIME PROXETIL 100 MG TABLET PO SCH ×2 (08:39→20:43)
[2018-03-10] MEDS: CHOLECALCIFEROL (VITAMIN D3) 1,000 UNIT TABLET PO SCH (08:39)
[2018-03-10] MEDS: BRIMONIDINE 0.2% OPHTH SOLUTION 5ML BOTTLE. OU SCH ×2 (08:39→21:16)
[2018-03-10] MEDS: POLYVINYL ALCOHOL 1.4% OPHTH SOLUTION 15ML BOTTLE. OU SCH ×4 (08:39→21:15)
[2018-03-10] MEDS: MOXIFLOXACIN 0.5% OPHTH SOLUTION 3ML BOTTLE. OD SCH ×4 (08:39→21:14)
[2018-03-10] MEDS: prednisoLONE ACETATE 1% OPHTH SUSPENSION 5ML BOTTLE. OD SCH (08:39)
[2018-03-10] MEDS: TIMOLOL 0.5% OPHTH SOLUTION 5ML BOTTLE. OU SCH ×2 (08:40→21:15)
--- NOTE | 2018-03-10 10:46 | CONS ---
DATE OF CONSULTATION: 03/10/2018 NEUROLOGIC CONSULTATION REASON FOR CONSULTATION: Parkinson disease. HISTORY OF PRESENT ILLNESS: This is a 62-year-old female who was transferred from [facility] to [facility] for further evaluation of abnormal behaviors. The patient was initially he presented at the Emergency Room on account of aggressive behavior against a alf staff when she resides at [facility]. She became more agitated towards the nursing staff. Neuro consult was requested because the patient has had history of Parkinson disease versus tardive dyskinesia. The patient is not able to provide any useful information at this time. Has been forgetful and showing early signs of dementia and sometimes symptoms described as "manic." PAST MEDICAL HISTORY: Significant for chronic embolism, obesity, hyperlipidemia, hypothyroidism, glaucoma, anxiety, and depression. SOCIAL HISTORY: The patient is a alf resident at [facility]. There is no history of smoking, alcohol drinking, or illicit drug use. CURRENT HOME MEDICATIONS: , levothyroxine, trazodone, Seroquel, Xalatan eye drops, Lipitor, trazodone, Paxil, Eliquis, gabapentin, vitamin D3, carbidopa/levodopa, Tylenol, olanzapine p.r.n. for agitation. ALLERGIES: SULFA DRUGS and AMOXICILLIN. REVIEW OF SYSTEMS: A 10-point review of system was performed as mentioned above in history of present illness. However, the patient unable to provide additional information at this time. PHYSICAL EXAMINATION: GENERAL: Obese female, not in acute distress. She weighs 242 pounds. VITAL SIGNS: Blood pressure 129/83, respiratory rate 14, pulse is 58 and regular, temperature 97.6, oxygen saturation 93% on room air. HEENT: Normocephalic, atraumatic, otherwise unremarkable. NECK: Supple. Negative for carotid bruit, lymphadenopathy or thyromegaly. LUNGS: Clear to A and P. CARDIOVASCULAR: Regular rhythm, normal S1, S2. ABDOMEN: Soft. Bowel sounds positive. EXTREMITIES: Negative for cyanosis, clubbing or pitting edema. NEUROLOGIC: The patient is awake and alert to herself. Speech is fluent. There is no language dysfunction. Memory, judgment, and abstract thinking are fair. The patient denies hallucination or delusion. CRANIAL NERVES: Visual burns appear to be intact. The pupils are reactive to light and accommodation. The extraocular movements are intact. There is no nystagmus. There is no facial motor or sensory deficit. Hearing appeared to be intact. The palate is elevated symmetrically. Sternocleidomastoid muscles are powerful bilaterally. The patient shrugs her shoulders symmetrically, protrudes her tongue in the midline without fasciculation or atrophy. MOTOR: No focal muscle bulk was seen. The tone is increased in the lower extremity. The strength is 4/5 throughout. The patient has a marked resting tremor of both upper extremities and repetitive movement of the lips. Sensory examination revealed normal pinprick and light touch senses. Deep tendon reflexes were hypoactive with absent Achilles responses and gait not tested because the patient unable to stand up and confined to wheelchair. LABORATORY DATA: CBC revealed white blood cells of 4.4 thousand, hemoglobin 13.9, hematocrit 41.6, platelet count 376,000. Chemistry revealed sodium of 144, potassium 4.2, chloride 108, CO2 of 31, BUN 124, creatinine 0.8, glucose is 177. Hemoglobin A1c is 5.6, calcium 9.3. Liver enzymes are normal. Iron normal. Lipid profile is normal. Vitamin B12 is normal at 551. Vitamin D is normal at 34.2. TSH is elevated with a normal T4. Urinalysis consistent with urinary tract infection with large urinary leukocyte esterase and increased white blood cell with many bacteria along with positive urine nitrite. IMPRESSION: 1. Parkinson disease, presented with a resting tremor of the upper extremities, increased rigidity, postural instability and bradykinesia. 2. Repetitive movement of the lips, maybe Parkinson's disease versus tardive dyskinesia. 3. Urinary tract infection. 4. Multiple medical problems include hyperlipidemia, hypothyroidism, obesity, history of systemic embolism. 5. Multiple psychiatric problems to include anxiety, depression, and possible bipolar disorder with predominant manic type. RECOMMENDATIONS: 1. Continue with current medical and psychiatric care initiated by Dr. Stinson and Dr. Tong. 2. We will continue with carbidopa/levodopa 25/100 q.i.d. If necessary, we will add ropinirole as dopamine agonist for persistent resting tremor of the upper extremities. 3. Physical therapy evaluation. M Hannah JEFF MD DR: CHANNING/david JOB#: [id number] / [id number]
[2018-03-10] MEDS: ASA/APAP/CAFFEINE 250/250/65MG TABLET. PO PRN (11:58)
[2018-03-10] MEDS: rOPINIRole 0.5 MG TABLET. PO SCH ×2 (13:48→20:46)
[2018-03-10 16:20] VITALS: BP 126/82
--- NOTE | 2018-03-10 19:19 | PN ---
DATE: 03/09/2018 This is a late entry, 03/09/2018, covers the elements not covered in my initial note. SUBJECTIVE: I met with the patient in the evening. The patient has been somewhat anxious, refusing her eyedrops. We are trying to get her records from [facility] where she was reportedly diagnosed with bipolar disorder. She does have a UTI, treated on Vantin. REVIEW OF SYSTEMS: She is lying in bed, met with her in her room. No CV, , pulmonary, eye system symptoms on review. Admits to being tired. MENTAL STATUS EXAM: Oriented to herself. Speech coherent, somewhat rapid at times, low in volume. Abstraction fair, computation impaired, language function intact. Mood and affect somewhat labile. LABORATORY DATA: Reviewed. IMPRESSION: Bipolar 1 disorder, mixed with psychotic features. PLAN: Continue current psychotropics, treat the urinary tract infection. She is on Effexor, Seroquel. Consider Depakote as a mood stabilizer. Await past records. MAN Dewayne LEWIS MD DR: LIZZETH/david JOB#: [id number] / [id number]
[2018-03-10] MEDS: traZODone 50 MG TABLET. PO SCH (20:43)
[2018-03-10] MEDS: ATORVASTATIN CALCIUM 10 MG TABLET. PO SCH (20:43)
--- NOTE | 2018-03-10 20:46 | PDOC ---
Exam Note: Massimo Note: Please also refer to the separate dictated note~for this date of service dictated separately.~Patient seen individually. Discussed the patient with Nursing staff reviewed the chart.~Reviewed interim history and current functioning. Reviewed vital signs,~Labs/ Radiology~and current medications noted below. Continue current treatment with the changes noted in the dictated addendum note Assessment: Vital Signs: Vital Signs Date Time Temp Pulse Resp B/P (MAP) Pulse Ox O2 Delivery O2 Flow Rate FiO2 03/10/18 16:20 97.2 62 20 126/82 (97) 97 03/10/18 06:06 Room Air I&O Intake and Output 03/10/18 06:59 Intake Total 1020 ml Balance 1020 ml Intake Oral 1020 ml # Voids 1 Current Medications: Meds: Current Medications Olanzapine (ZyPREXA ZYDIS) 2.5 mg PRN Q2HR PRN PO Psychosis; Start 03/08/18 at 03:45 Acetaminophen (Tylenol) 650 mg PRN Q8HRS PRN PO PAIN / TEMP; Start 03/08/18 at 03:45; Status UNV Brimonidine Tartrate (Alphagan) 1 drop BID OU Last administered on 03/10/18 08: 39; Start 03/08/18 at 09:00 Carbidopa/Levodopa (Sinemet 25/100) 1 tab QID PO Last administered on 03/10/18 16:36; Start 03/08/18 at 09:00 Vitamin D (Vitamin D3) 1,000 unit DAILY PO Last administered on 03/10/18at 08:39 ; Start 03/08/18 at 09:00 Gabapentin (Neurontin) 100 mg TID PO Last administered on 03/10/18at 13:48; Start 03/08/18 at 09:00 Levothyroxine Sodium (Synthroid) 75 mcg DAILYAC PO Last administered on at 10:53; Start 03/08/18 at 07:30; Stop 03/08/18 at 11:19; Status DC Multi-Ingred Cream/Lotion/Oil/ Oint (Artificial Tears Eye Ointment) 1 jose a HS OU Last administered on 03/09/18 20:17; Start 03/08/18 at 21:00 Moxifloxacin HCl (Vigamox) 1 drop QID OD Last administered on 03/10/18 16:37; Start 03/08/18 at 09:00; Stop 03/30/18 at 21:05 Nystatin (Nystop) 1 jose a PRN BID PRN TP RASH Last administered on 03/08/18 20:46 ; Start 03/08/18 at 03:45 Prednisolone Acetate (Pred Forte) 1 drop DAILY OD Last administered on 08:39; Start 03/08/18 at 09:00; Stop 03/30/18 at 09:05 Senna/Docusate Sodium (Senna Plus) 2 tab DAILY PO Last administered on 08:38; Start 03/08/18 at 09:00 Apixaban (Eliquis) 5 mg BID PO Last administered on 03/10/18 08:38; Start at 09:00 Acetaminophen/ Aspirin/Caffeine (Excedrin Migraine) 1 tab PRN Q6HRS PRN PO MIGRAINE HEADACHE Last administered on 03/10/18 11:58; Start 03/08/18 at 04:00 Atorvastatin Calcium (Lipitor) 10 mg QHS PO Last administered on 03/09/18 20:05 ; Start 03/08/18 at 21:00 Artificial Tears (Artificial Tears) 1 drop QID OU Last administered on 13:49; Start 03/08/18 at 09:00 Latanoprost (Xalatan) 1 drop QHS OU Last administered on 03/09/18 20:17; Start 03/08/18 at 21:00 Polyethylene Glycol (miraLAX) 17 gm PRN Q8HRS PRN PO CONSTIPATION; Start at 09:00 Timolol Maleate (Timoptic 0.5% [facility]) 1 drop BID OU Last administered on 08:40; Start 03/08/18 at 09:00 Quetiapine Fumarate (SEROquel) 50 mg DAILY PO Last administered on 03/10/18 08: 38; Start 03/08/18 at 09:00 Quetiapine Fumarate (SEROquel) 150 mg QHS PO Last administered on 03/09/18 20: 04; Start 03/08/18 at 21:00 Venlafaxine HCl (Effexor) 50 mg TID PO Last administered on 03/10/18at 13:48; Start 03/08/18 at 09:00 Acetaminophen (Tylenol) 650 mg PRN Q6HRS PRN PO PAIN / TEMP; Start 03/08/18 at 03:45 Multi-Ingredient Ointment (Analgesic [place]) 1 jose a PRN QID PRN TP MUSCLE PAIN; Start 03/08/18 at 03:45 Al Hydroxide/Mg Hydroxide (Mylanta Plus Xs) 15 ml PRN AFTMEALHC PRN PO DYSPEPSIA; Start 03/08/18 at 03:45 Magnesium Hydroxide (Milk Of Magnesia) 2,400 mg PRN QHS PRN PO CONSTIPATION; Start 03/08/18 at 03:45 Info (Anti-Coagulation Monitoring By Pharmacy) 1 each PRN DAILY PRN MC SEE COMMENTS; Start 03/08/18 at 05:00; Status Cancel Levothyroxine Sodium (Synthroid) 75 mcg DAILY06 PO Last administered on at 05:34; Start 03/09/18 at 06:00 Trazodone HCl (Desyrel) 50 mg QHS PO Last administered on 03/09/18at 20:05; Start 03/08/18 at 21:00 Trazodone HCl (Desyrel) 50 mg PRN QHS PRN PO Insomnia; Start 03/08/18 at 19:30 Cefpodoxime Proxetil (Vantin) 200 mg BID PO Last administered on 03/10/18at 08:39 ; Start 03/09/18 at 21:00 Lactobacillus Rhamnosus (Culturelle) 1 cap BID PO Last administered on at 08:38; Start 03/10/18 at 09:00 Ropinirole HCl (Requip) 0.5 mg TID PO Last administered on 03/10/18at 13:48; Start 03/10/18 at 14:00 Active Scripts Active Reported Vitamin D3 (Cholecalciferol (Vitamin D3)) 1,000 Unit Tablet 1,000 Unit PO DAILY Vigamox (Moxifloxacin Hcl) 3 Ml Drops 1 Drop OD QID Venlafaxine Hcl Er (Venlafaxine Hcl) 150 Mg Cap.er.24h 150 Mg PO DAILY Timoptic (Timolol Maleate) 10 Ml Drops 1 Drop EACHEYE BID Seroquel (Quetiapine Fumarate) 50 Mg Tablet 50 Mg PO DAILY Seroquel (Quetiapine Fumarate) 100 Mg Tablet 150 Mg PO HS Senna-Docusate Sodium Tablet (Sennosides/Docusate Sodium) 1 Each Tablet 2 Tab PO DAILY Prednisolone Acetate 5 Ml Drops.susp 1 Drop OD DAILY Nystop (Nystatin) 60 Gm Powder 1 Jose A TP PRN BID PRN Artificial Tears Eye Drops (Dextran 70/Hypromellose) 15 Ml Drops 1 Drop EACHEYE QID Miralax (Polyethylene Glycol 3350) 17 Gm Powd.pack 17 Gm PO PRN Q8HRS PRN Artificial Tears Eye Oint (Mineral Oil/Petrolatum,White) 3.5 Gm Oint...g. 1 Drop OU HS Levothyroxine Sodium 75 Mcg Tablet 75 Mcg PO DAILYAC Latanoprost 2.5 Ml Drops 1 Drop EACHEYE QHS Gabapentin 100 Mg Capsule 100 Mg PO TID Excedrin Extra Strength Caplet (Aspirin/Acetaminophen/Caffeine) 1 Each Tablet 1 Tab PO PRN Q5HRS Eliquis (Apixaban) 5 Mg Tablet 5 Mg PO BID Sinemet 25-100 Mg Tablet (Carbidopa/Levodopa) 1 Each Tablet 1 Tab PO QID Brimonidine Tartrate 5 Ml Drops 1 Drop OU BID Atorvastatin Calcium 10 Mg Tablet 10 Mg PO QHS Tylenol (Acetaminophen) 325 Mg Tablet 650 Mg PO PRN Q8HRS PRN I have reviewed the current psychotropics carefully including drug interactions. Risk benefit ratio favors no change other than as noted in my dictated progress note. Diagnosis: Problems: (1) Anxiety disorder (2) Bipolar affective, mixed, sev w/ psych (3) Dementia, vascular, with delusions (4) Impulse control disorder HERMILO LEWIS MD Mar 10, 2018 20:45
[2018-03-10] MEDS: MINERAL OIL/PETROLATUM,WHITE OPHTH OINT 3.5GM TUBE. OU SCH (21:15)
[2018-03-10] MEDS: LATANOPROST 0.005% OPHTH SOLUTION 2.5ML BOTTLE. OU SCH (21:15)
--- NOTE | 2018-03-10 21:17 | PN ---
DATE: SUBJECTIVE: The patient continues to have resting tremor of both upper extremities along with rigidity of the lower extremities. OBJECTIVE: GENERAL: Obese female, not in acute distress. VITAL SIGNS: Blood pressure 114/74, respiratory rate 22, pulse 62 regular, temperature 97.6, oxygen saturation 94% on room air. HEENT: Normocephalic, atraumatic, otherwise, unremarkable. NECK: Supple, negative for carotid bruit, lymphadenopathy or thyromegaly. LUNGS: Clear to A and P. CARDIOVASCULAR: Regular rate and rhythm, normal S1, S2. ABDOMEN: Soft. Bowel sounds positive. EXTREMITIES: Negative for clubbing, but positive for venous stasis. NEUROLOGIC: The patient is alert and oriented to herself and place. Speech is somewhat fluent. There is no language dysfunction. Memory, judgment, and abstract thinking are fair. The patient denies hallucination or delusion. Cranial nerves are intact. Motor examination reveals increased swelling of the lower extremities. The patient had marked resting tremor of both upper extremities. The strength otherwise is 4/5 throughout. Sensory examination revealed normal pinprick and light touch senses throughout. Deep tendon reflexes were hypoactive with absent Achilles responses. Gait: The patient unable to stand. IMPRESSION: 1. Resting tremor of the upper extremities with left repetitive movements and increased rigidity of the lower extremities along with postural unsteadiness and bradykinesia likely represent parkinsonism. However, repetitive movements of the lips could be signs of tardive dyskinesia, which the patient ____ diagnosis by history. 2. Obesity, hyperlipidemia, hypothyroidism. 3. Multiple psychiatric problems include anxiety and bipolar disorder and possible early dementia. RECOMMENDATIONS: 1. We will continue with current medical and psychiatric care. 2. We will add ropinirole at 0.5 mg t.i.d. The patient is to continue with carbidopa/levodopa 25/100 q.i.d. M Hannah JEFF MD DR: CHANNING/david JOB#: [id number] / [id number]
[2018-03-10] MEDS: NYSTATIN TOPICAL POWDER 15GM BOTTLE. TP PRN (21:51)
[2018-03-11] MEDS: LEVOTHYROXINE 75 MCG TABLET PO SCH (05:00)
[2018-03-11 06:06] VITALS: BP 141/68
[2018-03-11] MEDS: prednisoLONE ACETATE 1% OPHTH SUSPENSION 5ML BOTTLE. OD SCH (08:10)
[2018-03-11] MEDS: TIMOLOL 0.5% OPHTH SOLUTION 5ML BOTTLE. OU SCH ×2 (08:11→19:52)
[2018-03-11] MEDS: BRIMONIDINE 0.2% OPHTH SOLUTION 5ML BOTTLE. OU SCH ×2 (08:11→19:52)
[2018-03-11] MEDS: LACTOBACILLUS RHAMNOSUS GG 1 CAPSULE. PO SCH ×2 (08:11→19:52)
[2018-03-11] MEDS: MOXIFLOXACIN 0.5% OPHTH SOLUTION 3ML BOTTLE. OD SCH ×4 (08:11→19:52)
[2018-03-11] MEDS: POLYVINYL ALCOHOL 1.4% OPHTH SOLUTION 15ML BOTTLE. OU SCH ×4 (08:11→19:52)
[2018-03-11] MEDS: APIXABAN 5 MG TABLET. PO SCH ×2 (08:12→19:54)
[2018-03-11] MEDS: GABAPENTIN 100 MG CAPSULE. PO SCH ×3 (08:12→19:53)
[2018-03-11] MEDS: VENLAFAXINE 50 MG TABLET. PO SCH ×2 (08:12→14:31)
[2018-03-11] MEDS: CARBIDOPA/LEVODOPA 25/100MG TABLET PO SCH ×4 (08:13→19:53)
[2018-03-11] MEDS: CHOLECALCIFEROL (VITAMIN D3) 1,000 UNIT TABLET PO SCH (08:13)
[2018-03-11] MEDS: SENNOSIDES/DOCUSATE 8.6/50MG TABLET. PO SCH (08:13)
[2018-03-11] MEDS: QUEtiapine 50 MG TABLET. PO SCH (08:13)
[2018-03-11] MEDS: CEFPODOXIME PROXETIL 100 MG TABLET PO SCH ×2 (08:13→19:53)
[2018-03-11] MEDS: rOPINIRole 0.5 MG TABLET. PO SCH ×3 (08:14→19:53)
[2018-03-11] MEDS: ASA/APAP/CAFFEINE 250/250/65MG TABLET. PO PRN ×2 (11:20→20:00)
[2018-03-11 16:05] VITALS: BP 94/58
[2018-03-11] MEDS: ATORVASTATIN CALCIUM 10 MG TABLET. PO SCH (19:53)
[2018-03-11] MEDS: traZODone 50 MG TABLET. PO SCH (19:54)
[2018-03-11] MEDS: DIVALPROEX 125 MG CAP.SPRINK PO SCH (19:57)
[2018-03-11] MEDS: VENLAFAXINE 37.5 MG TABLET. PO SCH (19:57)
[2018-03-11] MEDS: QUEtiapine 100 MG TABLET. PO SCH (19:57)
[2018-03-11] MEDS: MINERAL OIL/PETROLATUM,WHITE OPHTH OINT 3.5GM TUBE. OU SCH (19:58)
[2018-03-11] MEDS: LATANOPROST 0.005% OPHTH SOLUTION 2.5ML BOTTLE. OU SCH (19:58)
--- NOTE | 2018-03-11 20:02 | PDOC ---
Exam Note: Massimo Note: Please also refer to the separate dictated note~for this date of service dictated separately.~Patient seen individually. Discussed the patient with Nursing staff reviewed the chart.~Reviewed interim history and current functioning. Reviewed vital signs,~Labs/ Radiology~and current medications noted below. Continue current treatment with the changes noted in the dictated addendum note Assessment: Vital Signs: Vital Signs Date Time Temp Pulse Resp B/P (MAP) Pulse Ox O2 Delivery O2 Flow Rate FiO2 03/11/18 16:05 97.3 66 22 94/58 (70) 95 03/10/18 06:06 Room Air I&O Intake and Output 03/11/18 06:59 Intake Total 1320 ml Balance 1320 ml Intake Oral 1320 ml Current Medications: Meds: Current Medications Olanzapine (ZyPREXA ZYDIS) 2.5 mg PRN Q2HR PRN PO Psychosis Last administered on 03/11/18 11:20; Start 03/08/18 at 03:45 Acetaminophen (Tylenol) 650 mg PRN Q8HRS PRN PO PAIN / TEMP; Start 03/08/18 at 03:45; Status UNV Brimonidine Tartrate (Alphagan) 1 drop BID OU Last administered on 03/11/18 19: 52; Start 03/08/18 at 09:00 Carbidopa/Levodopa (Sinemet 25/100) 1 tab QID PO Last administered on 03/11/18 19:53; Start 03/08/18 at 09:00 Vitamin D (Vitamin D3) 1,000 unit DAILY PO Last administered on 03/11/18at 08:13 ; Start 03/08/18 at 09:00 Gabapentin (Neurontin) 100 mg TID PO Last administered on 03/11/18 19:53; Start 03/08/18 at 09:00 Levothyroxine Sodium (Synthroid) 75 mcg DAILYAC PO Last administered on at 10:53; Start 03/08/18 at 07:30; Stop 03/08/18 at 11:19; Status DC Multi-Ingred Cream/Lotion/Oil/ Oint (Artificial Tears Eye Ointment) 1 jose a HS OU Last administered on 03/11/18 19:58; Start 03/08/18 at 21:00 Moxifloxacin HCl (Vigamox) 1 drop QID OD Last administered on 03/11/18 19:52; Start 03/08/18 at 09:00; Stop 03/30/18 at 21:05 Nystatin (Nystop) 1 jose a PRN BID PRN TP RASH Last administered on 03/10/18 21:51 ; Start 03/08/18 at 03:45 Prednisolone Acetate (Pred Forte) 1 drop DAILY OD Last administered on 08:10; Start 03/08/18 at 09:00; Stop 03/30/18 at 09:05 Senna/Docusate Sodium (Senna Plus) 2 tab DAILY PO Last administered on 08:13; Start 03/08/18 at 09:00 Apixaban (Eliquis) 5 mg BID PO Last administered on 03/11/18 19:54; Start at 09:00 Acetaminophen/ Aspirin/Caffeine (Excedrin Migraine) 1 tab PRN Q6HRS PRN PO MIGRAINE HEADACHE Last administered on 03/11/18 20:00; Start 03/08/18 at 04:00 Atorvastatin Calcium (Lipitor) 10 mg QHS PO Last administered on 03/11/18 19:53 ; Start 03/08/18 at 21:00 Artificial Tears (Artificial Tears) 1 drop QID OU Last administered on 19:52; Start 03/08/18 at 09:00 Latanoprost (Xalatan) 1 drop QHS OU Last administered on 03/11/18 19:58; Start 03/08/18 at 21:00 Polyethylene Glycol (miraLAX) 17 gm PRN Q8HRS PRN PO CONSTIPATION; Start at 09:00 Timolol Maleate (Timoptic 0.5% [facility]) 1 drop BID OU Last administered on 19:52; Start 03/08/18 at 09:00 Quetiapine Fumarate (SEROquel) 50 mg DAILY PO Last administered on 03/11/18 08: 13; Start 03/08/18 at 09:00 Quetiapine Fumarate (SEROquel) 150 mg QHS PO Last administered on 03/10/18 20: 42; Start 03/08/18 at 21:00; Stop 03/11/18 at 18:40; Status DC Venlafaxine HCl (Effexor) 50 mg TID PO Last administered on 03/11/18at 14:31; Start 03/08/18 at 09:00; Stop 03/11/18 at 18:40; Status DC Acetaminophen (Tylenol) 650 mg PRN Q6HRS PRN PO PAIN / TEMP; Start 03/08/18 at 03:45 Multi-Ingredient Ointment (Analgesic [place]) 1 jose a PRN QID PRN TP MUSCLE PAIN; Start 03/08/18 at 03:45 Al Hydroxide/Mg Hydroxide (Mylanta Plus Xs) 15 ml PRN AFTMEALHC PRN PO DYSPEPSIA; Start 03/08/18 at 03:45 Magnesium Hydroxide (Milk Of Magnesia) 2,400 mg PRN QHS PRN PO CONSTIPATION; Start 03/08/18 at 03:45 Info (Anti-Coagulation Monitoring By Pharmacy) 1 each PRN DAILY PRN MC SEE COMMENTS; Start 03/08/18 at 05:00; Status Cancel Levothyroxine Sodium (Synthroid) 75 mcg DAILY06 PO Last administered on at 05:00; Start 03/09/18 at 06:00 Trazodone HCl (Desyrel) 50 mg QHS PO Last administered on 03/11/18at 19:54; Start 03/08/18 at 21:00 Trazodone HCl (Desyrel) 50 mg PRN QHS PRN PO Insomnia; Start 03/08/18 at 19:30 Cefpodoxime Proxetil (Vantin) 200 mg BID PO Last administered on 03/11/18at 19:53 ; Start 03/09/18 at 21:00 Lactobacillus Rhamnosus (Culturelle) 1 cap BID PO Last administered on 19:52; Start 03/10/18 at 09:00 Ropinirole HCl (Requip) 0.5 mg TID PO Last administered on 03/11/18 19:53; Start 03/10/18 at 14:00 Divalproex Sodium (Depakote Sprinkles) 250 mg HS PO Last administered on 19:57; Start 03/11/18 at 21:00 Quetiapine Fumarate (SEROquel) 100 mg HS PO Last administered on 7/9/18at 19:57 ; Start 03/11/18 at 21:00 Venlafaxine HCl (Effexor) 37.5 mg BID PO Last administered on 03/11/18at 19:57; Start 03/11/18 at 21:00 Active Scripts Active Reported Vitamin D3 (Cholecalciferol (Vitamin D3)) 1,000 Unit Tablet 1,000 Unit PO DAILY Vigamox (Moxifloxacin Hcl) 3 Ml Drops 1 Drop OD QID Venlafaxine Hcl Er (Venlafaxine Hcl) 150 Mg Cap.er.24h 150 Mg PO DAILY Timoptic (Timolol Maleate) 10 Ml Drops 1 Drop EACHEYE BID Seroquel (Quetiapine Fumarate) 50 Mg Tablet 50 Mg PO DAILY Seroquel (Quetiapine Fumarate) 100 Mg Tablet 150 Mg PO HS Senna-Docusate Sodium Tablet (Sennosides/Docusate Sodium) 1 Each Tablet 2 Tab PO DAILY Prednisolone Acetate 5 Ml Drops.susp 1 Drop OD DAILY Nystop (Nystatin) 60 Gm Powder 1 Jose A TP PRN BID PRN Artificial Tears Eye Drops (Dextran 70/Hypromellose) 15 Ml Drops 1 Drop EACHEYE QID Miralax (Polyethylene Glycol 3350) 17 Gm Powd.pack 17 Gm PO PRN Q8HRS PRN Artificial Tears Eye Oint (Mineral Oil/Petrolatum,White) 3.5 Gm Oint...g. 1 Drop OU HS Levothyroxine Sodium 75 Mcg Tablet 75 Mcg PO DAILYAC Latanoprost 2.5 Ml Drops 1 Drop EACHEYE QHS Gabapentin 100 Mg Capsule 100 Mg PO TID Excedrin Extra Strength Caplet (Aspirin/Acetaminophen/Caffeine) 1 Each Tablet 1 Tab PO PRN Q5HRS Eliquis (Apixaban) 5 Mg Tablet 5 Mg PO BID Sinemet 25-100 Mg Tablet (Carbidopa/Levodopa) 1 Each Tablet 1 Tab PO QID Brimonidine Tartrate 5 Ml Drops 1 Drop OU BID Atorvastatin Calcium 10 Mg Tablet 10 Mg PO QHS Tylenol (Acetaminophen) 325 Mg Tablet 650 Mg PO PRN Q8HRS PRN I have reviewed the current psychotropics carefully including drug interactions. Risk benefit ratio favors no change other than as noted in my dictated progress note. Diagnosis: Problems: (1) Anxiety disorder (2) Bipolar affective, mixed, sev w/ psych (3) Dementia, vascular, with delusions (4) Impulse control disorder HERMILO LEWIS MD Mar 11, 2018 20:02
--- NOTE | 2018-03-11 22:54 | PN ---
DATE: 03/10/2018 PSYCHIATRIC PROGRESS NOTE This is a late entry 03/10/2018, covers elements not covered in my initial note 03/10/2018. SUBJECTIVE: I met with the patient in the evening. The patient slept 6-1/2 hours previous evening. She has had some ongoing tremors due to Parkinson's and Dr. Mccoy has started her on Requip. She is still delusional, believes she is in a study protocol for research. At times, she has been more social; however, quite obsessive, repetitive. REVIEW OF SYSTEMS: Ambulation impaired, in wheelchair. No CV, , pulmonary, eye, ENT system symptoms on review. MENTAL STATUS EXAM: Oriented to herself and situation. Speech coherent, rapid, loud at times. Abstraction fair, computation impaired, language function intact, attention span short. Mood and affect remain somewhat labile, quite yelling, disruptive, verbally in the evening as I met with her. LABORATORY DATA: Reviewed. IMPRESSION: Unchanged from initial note, bipolar 1 disorder, mixed with psychotic features, status post urinary tract infection. PLAN: Continue psychotropics from initial note. Adjust gradually depending on her progress. MAN Dewayne LEWIS MD DR: LIZZETH/david JOB#: [id number] / [id number]
[2018-03-12] MEDS: LEVOTHYROXINE 75 MCG TABLET PO SCH (06:00)
[2018-03-12 06:10] VITALS: BP 112/55
[2018-03-12] MEDS: rOPINIRole 0.5 MG TABLET. PO SCH ×3 (08:01→19:41)
[2018-03-12] MEDS: GABAPENTIN 100 MG CAPSULE. PO SCH ×3 (08:01→19:43)
[2018-03-12] MEDS: CEFPODOXIME PROXETIL 100 MG TABLET PO SCH ×2 (08:01→19:42)
[2018-03-12] MEDS: VENLAFAXINE 37.5 MG TABLET. PO SCH ×2 (08:01→19:41)
[2018-03-12] MEDS: NYSTATIN TOPICAL POWDER 15GM BOTTLE. TP PRN (08:01)
[2018-03-12] MEDS: CHOLECALCIFEROL (VITAMIN D3) 1,000 UNIT TABLET PO SCH (08:02)
[2018-03-12] MEDS: APIXABAN 5 MG TABLET. PO SCH ×2 (08:02→19:41)
[2018-03-12] MEDS: SENNOSIDES/DOCUSATE 8.6/50MG TABLET. PO SCH (08:02)
[2018-03-12] MEDS: LACTOBACILLUS RHAMNOSUS GG 1 CAPSULE. PO SCH ×2 (08:02→19:40)
[2018-03-12] MEDS: CARBIDOPA/LEVODOPA 25/100MG TABLET PO SCH ×4 (08:02→19:41)
[2018-03-12] MEDS: QUEtiapine 50 MG TABLET. PO SCH (08:02)
[2018-03-12] MEDS: MINERAL OIL/PETROLATUM,WHITE OPHTH OINT 3.5GM TUBE. OU SCH ×2 (08:04→19:39)
[2018-03-12] MEDS: LATANOPROST 0.005% OPHTH SOLUTION 2.5ML BOTTLE. OU SCH (08:04)
[2018-03-12] MEDS: prednisoLONE ACETATE 1% OPHTH SUSPENSION 5ML BOTTLE. OD SCH (08:05)
[2018-03-12] MEDS: MOXIFLOXACIN 0.5% OPHTH SOLUTION 3ML BOTTLE. OD SCH ×4 (08:05→19:37)
[2018-03-12] MEDS: POLYVINYL ALCOHOL 1.4% OPHTH SOLUTION 15ML BOTTLE. OU SCH ×4 (08:05→19:39)
[2018-03-12] MEDS: BRIMONIDINE 0.2% OPHTH SOLUTION 5ML BOTTLE. OU SCH ×2 (08:05→19:40)
[2018-03-12] MEDS: TIMOLOL 0.5% OPHTH SOLUTION 5ML BOTTLE. OU SCH ×2 (08:06→19:40)
[2018-03-12 16:17] VITALS: BP 169/83
[2018-03-12] MEDS: ASA/APAP/CAFFEINE 250/250/65MG TABLET. PO PRN (17:19)
[2018-03-12] MEDS: DIVALPROEX 125 MG CAP.SPRINK PO SCH (19:40)
[2018-03-12] MEDS: QUEtiapine 100 MG TABLET. PO SCH (19:41)
[2018-03-12] MEDS: traZODone 50 MG TABLET. PO SCH (19:41)
[2018-03-12] MEDS: ATORVASTATIN CALCIUM 10 MG TABLET. PO SCH (19:42)
--- NOTE | 2018-03-12 21:43 | PDOC ---
Exam Note: Massimo Note: Please also refer to the separate dictated note~for this date of service dictated separately.~Patient seen individually. Discussed the patient with Nursing staff reviewed the chart.~Reviewed interim history and current functioning. Reviewed vital signs,~Labs/ Radiology~and current medications noted below. Continue current treatment with the changes noted in the dictated addendum note Assessment: Vital Signs: Vital Signs Date Time Temp Pulse Resp B/P (MAP) Pulse Ox O2 Delivery O2 Flow Rate FiO2 03/12/18 16:17 98.1 99 20 169/83 (111) 96 Room Air I&O Intake and Output 03/12/18 07:00 Intake Total 920 ml Balance 920 ml Intake Oral 920 ml Current Medications: Meds: Current Medications Olanzapine (ZyPREXA ZYDIS) 2.5 mg PRN Q2HR PRN PO Psychosis Last administered on 03/12/18 16:13; Start 03/08/18 at 03:45 Acetaminophen (Tylenol) 650 mg PRN Q8HRS PRN PO PAIN / TEMP; Start 03/08/18 at 03:45; Status UNV Brimonidine Tartrate (Alphagan) 1 drop BID OU Last administered on 03/12/18 19 :40; Start 03/08/18 at 09:00 Carbidopa/Levodopa (Sinemet 25/100) 1 tab QID PO Last administered on 19:41; Start 03/08/18 at 09:00 Vitamin D (Vitamin D3) 1,000 unit DAILY PO Last administered on 03/12/18 08:02 ; Start 03/08/18 at 09:00 Gabapentin (Neurontin) 100 mg TID PO Last administered on 03/12/18 19:43; Start 03/08/18 at 09:00 Levothyroxine Sodium (Synthroid) 75 mcg DAILYAC PO Last administered on 10:53; Start 03/08/18 at 07:30; Stop 03/08/18 at 11:19; Status DC Multi-Ingred Cream/Lotion/Oil/ Oint (Artificial Tears Eye Ointment) 1 jose a HS OU Last administered on 03/12/18 19:39; Start 03/08/18 at 21:00 Moxifloxacin HCl (Vigamox) 1 drop QID OD Last administered on 03/12/18 19:37; Start 03/08/18 at 09:00; Stop 03/30/18 at 21:05 Nystatin (Nystop) 1 jose a PRN BID PRN TP RASH Last administered on 03/12/18 08: 01; Start 03/08/18 at 03:45 Prednisolone Acetate (Pred Forte) 1 drop DAILY OD Last administered on 08:05; Start 03/08/18 at 09:00; Stop 03/30/18 at 09:05 Senna/Docusate Sodium (Senna Plus) 2 tab DAILY PO Last administered on 08:02; Start 03/08/18 at 09:00 Apixaban (Eliquis) 5 mg BID PO Last administered on 03/12/18 19:41; Start 03/08 at 09:00 Acetaminophen/ Aspirin/Caffeine (Excedrin Migraine) 1 tab PRN Q6HRS PRN PO MIGRAINE HEADACHE Last administered on 03/12/18 17:19; Start 03/08/18 at 04:00 Atorvastatin Calcium (Lipitor) 10 mg QHS PO Last administered on 03/12/18 19: 42; Start 03/08/18 at 21:00 Artificial Tears (Artificial Tears) 1 drop QID OU Last administered on 19:39; Start 03/08/18 at 09:00 Latanoprost (Xalatan) 1 drop QHS OU Last administered on 03/12/18 08:04; Start 03/08/18 at 21:00 Polyethylene Glycol (miraLAX) 17 gm PRN Q8HRS PRN PO CONSTIPATION; Start at 09:00 Timolol Maleate (Timoptic 0.5% [facility]) 1 drop BID OU Last administered on 19:40; Start 03/08/18 at 09:00 Quetiapine Fumarate (SEROquel) 50 mg DAILY PO Last administered on 03/12/18 08 :02; Start 03/08/18 at 09:00 Quetiapine Fumarate (SEROquel) 150 mg QHS PO Last administered on 03/10/18 20: 42; Start 03/08/18 at 21:00; Stop 03/11/18 at 18:40; Status DC Venlafaxine HCl (Effexor) 50 mg TID PO Last administered on 03/11/18at 14:31; Start 03/08/18 at 09:00; Stop 03/11/18 at 18:40; Status DC Acetaminophen (Tylenol) 650 mg PRN Q6HRS PRN PO PAIN / TEMP; Start 03/08/18 at 03:45 Multi-Ingredient Ointment (Analgesic [place]) 1 jose a PRN QID PRN TP MUSCLE PAIN; Start 03/08/18 at 03:45 Al Hydroxide/Mg Hydroxide (Mylanta Plus Xs) 15 ml PRN AFTMEALHC PRN PO DYSPEPSIA; Start 03/08/18 at 03:45 Magnesium Hydroxide (Milk Of Magnesia) 2,400 mg PRN QHS PRN PO CONSTIPATION; Start 03/08/18 at 03:45 Info (Anti-Coagulation Monitoring By Pharmacy) 1 each PRN DAILY PRN MC SEE COMMENTS; Start 03/08/18 at 05:00; Status Cancel Levothyroxine Sodium (Synthroid) 75 mcg DAILY06 PO Last administered on at 06:00; Start 03/09/18 at 06:00 Trazodone HCl (Desyrel) 50 mg QHS PO Last administered on 03/12/18at 19:41; Start 03/08/18 at 21:00 Trazodone HCl (Desyrel) 50 mg PRN QHS PRN PO Insomnia; Start 03/08/18 at 19:30 Cefpodoxime Proxetil (Vantin) 200 mg BID PO Last administered on 03/12/18at 19: 42; Start 03/09/18 at 21:00 Lactobacillus Rhamnosus (Culturelle) 1 cap BID PO Last administered on 19:40; Start 03/10/18 at 09:00 Ropinirole HCl (Requip) 0.5 mg TID PO Last administered on 03/12/18 19:41; Start 03/10/18 at 14:00 Divalproex Sodium (Depakote Sprinkles) 250 mg HS PO Last administered on 19:40; Start 03/11/18 at 21:00 Quetiapine Fumarate (SEROquel) 100 mg HS PO Last administered on 03/12/18 19: 41; Start 03/11/18 at 21:00 Venlafaxine HCl (Effexor) 37.5 mg BID PO Last administered on 03/12/18at 19:41; Start 03/11/18 at 21:00 Active Scripts Active Reported Vitamin D3 (Cholecalciferol (Vitamin D3)) 1,000 Unit Tablet 1,000 Unit PO DAILY Vigamox (Moxifloxacin Hcl) 3 Ml Drops 1 Drop OD QID Venlafaxine Hcl Er (Venlafaxine Hcl) 150 Mg Cap.er.24h 150 Mg PO DAILY Timoptic (Timolol Maleate) 10 Ml Drops 1 Drop EACHEYE BID Seroquel (Quetiapine Fumarate) 50 Mg Tablet 50 Mg PO DAILY Seroquel (Quetiapine Fumarate) 100 Mg Tablet 150 Mg PO HS Senna-Docusate Sodium Tablet (Sennosides/Docusate Sodium) 1 Each Tablet 2 Tab PO DAILY Prednisolone Acetate 5 Ml Drops.susp 1 Drop OD DAILY Nystop (Nystatin) 60 Gm Powder 1 Jose A TP PRN BID PRN Artificial Tears Eye Drops (Dextran 70/Hypromellose) 15 Ml Drops 1 Drop EACHEYE QID Miralax (Polyethylene Glycol 3350) 17 Gm Powd.pack 17 Gm PO PRN Q8HRS PRN Artificial Tears Eye Oint (Mineral Oil/Petrolatum,White) 3.5 Gm Oint...g. 1 Drop OU HS Levothyroxine Sodium 75 Mcg Tablet 75 Mcg PO DAILYAC Latanoprost 2.5 Ml Drops 1 Drop EACHEYE QHS Gabapentin 100 Mg Capsule 100 Mg PO TID Excedrin Extra Strength Caplet (Aspirin/Acetaminophen/Caffeine) 1 Each Tablet 1 Tab PO PRN Q5HRS Eliquis (Apixaban) 5 Mg Tablet 5 Mg PO BID Sinemet 25-100 Mg Tablet (Carbidopa/Levodopa) 1 Each Tablet 1 Tab PO QID Brimonidine Tartrate 5 Ml Drops 1 Drop OU BID Atorvastatin Calcium 10 Mg Tablet 10 Mg PO QHS Tylenol (Acetaminophen) 325 Mg Tablet 650 Mg PO PRN Q8HRS PRN I have reviewed the current psychotropics carefully including drug interactions. Risk benefit ratio favors no change other than as noted in my dictated progress note. Diagnosis: Problems: (1) Anxiety disorder (2) Bipolar affective, mixed, sev w/ psych (3) Dementia, vascular, with delusions (4) Impulse control disorder HERMILO LEWIS MD Mar 12, 2018 21:43
--- NOTE | 2018-03-13 01:28 | PN ---
DATE: 03/11/2018 PSYCHIATRIC PROGRESS NOTE This is a late entry 03/11/2018 covers elements not covered in my initial note. SUBJECTIVE: I met with the patient in the evening. The patient slept 6 hours previous evening. Previous night she was cursing, labile. Again in the afternoon on 03/11/2018, she was yelling in the day room. She has been drooling, slouched in a wheelchair at times, anxious, out of bed somewhat more. In the hallway, she was chanting, yelling, and cursing. She was more pleasant after p.r.n., cooperative with medications. REVIEW OF SYSTEMS: Ambulation impaired, in wheelchair. No CV, , pulmonary, eye, ENT system symptoms on review. MENTAL STATUS EXAM: Oriented to herself and situation. Speech, difficult to understand, low in volume. Abstraction fair, computation impaired, language function intact, attention span short. Mood and affect remains labile. LABORATORY DATA: Reviewed. IMPRESSION: Bipolar 1 disorder, mixed with psychotic features; cognitive disorder, unspecified. PLAN: Get past psychiatric records regarding her bipolar diagnosis. Given her manic symptoms, mood lability. reduce Effexor ER from 150 mg a day down to 75 mg a day. Start Depakote Sprinkles 250 mg at bedtime. Check CBC, CMP, valproic acid level in 3 days. Given some of the drooling she is manifesting, we will reduce the bedtime Seroquel from 150 at bedtime, down to 100 mg at bedtime. Continue 50 mg daily in the morning. Maintain trazodone at bedtime p.r.n. insomnia. MAN Dewayne LEWIS MD DR: LIZZETH/david JOB#: [id number] / [id number]
[2018-03-13] MEDS: LEVOTHYROXINE 75 MCG TABLET PO SCH (05:55)
[2018-03-13] MEDS: ASA/APAP/CAFFEINE 250/250/65MG TABLET. PO PRN ×3 (05:59→22:10)
[2018-03-13 06:04] VITALS: BP 101/56
[2018-03-13] MEDS: POLYVINYL ALCOHOL 1.4% OPHTH SOLUTION 15ML BOTTLE. OU SCH ×4 (07:48→19:45)
[2018-03-13] MEDS: TIMOLOL 0.5% OPHTH SOLUTION 5ML BOTTLE. OU SCH ×2 (07:48→19:43)
[2018-03-13] MEDS: LACTOBACILLUS RHAMNOSUS GG 1 CAPSULE. PO SCH ×2 (07:48→19:37)
[2018-03-13] MEDS: MOXIFLOXACIN 0.5% OPHTH SOLUTION 3ML BOTTLE. OD SCH ×4 (07:48→19:42)
[2018-03-13] MEDS: BRIMONIDINE 0.2% OPHTH SOLUTION 5ML BOTTLE. OU SCH ×2 (07:48→19:42)
[2018-03-13] MEDS: prednisoLONE ACETATE 1% OPHTH SUSPENSION 5ML BOTTLE. OD SCH ×2 (07:48→19:42)
[2018-03-13] MEDS: GABAPENTIN 100 MG CAPSULE. PO SCH ×3 (07:49→19:37)
[2018-03-13] MEDS: QUEtiapine 50 MG TABLET. PO SCH (07:49)
[2018-03-13] MEDS: rOPINIRole 0.5 MG TABLET. PO SCH ×3 (07:49→19:37)
[2018-03-13] MEDS: CHOLECALCIFEROL (VITAMIN D3) 1,000 UNIT TABLET PO SCH (07:49)
[2018-03-13] MEDS: VENLAFAXINE 37.5 MG TABLET. PO SCH ×2 (07:49→19:38)
[2018-03-13] MEDS: SENNOSIDES/DOCUSATE 8.6/50MG TABLET. PO SCH (07:49)
[2018-03-13] MEDS: APIXABAN 5 MG TABLET. PO SCH ×2 (07:49→19:37)
[2018-03-13] MEDS: CARBIDOPA/LEVODOPA 25/100MG TABLET PO SCH ×4 (07:50→19:37)
[2018-03-13] MEDS: CEFPODOXIME PROXETIL 100 MG TABLET PO SCH ×2 (07:50→19:38)
[2018-03-13 16:06] VITALS: BP 113/80
[2018-03-13] MEDS: ATORVASTATIN CALCIUM 10 MG TABLET. PO SCH (19:37)
[2018-03-13] MEDS: traZODone 50 MG TABLET. PO SCH (19:38)
[2018-03-13] MEDS: DIVALPROEX 125 MG CAP.SPRINK PO SCH (19:38)
[2018-03-13] MEDS: QUEtiapine 100 MG TABLET. PO SCH (19:38)
[2018-03-13] MEDS: LATANOPROST 0.005% OPHTH SOLUTION 2.5ML BOTTLE. OU SCH (19:42)
[2018-03-13] MEDS: MINERAL OIL/PETROLATUM,WHITE OPHTH OINT 3.5GM TUBE. OU SCH (19:45)
--- NOTE | 2018-03-13 20:55 | PDOC ---
Exam Note: Massimo Note: Please also refer to the separate dictated note~for this date of service dictated separately.~Patient seen individually. Discussed the patient with Nursing staff reviewed the chart.~Reviewed interim history and current functioning. Reviewed vital signs,~Labs/ Radiology~and current medications noted below. Continue current treatment with the changes noted in the dictated addendum note Assessment: Vital Signs: Vital Signs Date Time Temp Pulse Resp B/P (MAP) Pulse Ox O2 Delivery O2 Flow Rate FiO2 03/13/18 16:06 97.6 73 22 113/80 (91) 95 03/12/18 16:17 Room Air I&O Intake and Output 03/13/18 06:59 Intake Total 840 ml Balance 840 ml Intake Oral 840 ml Current Medications: Meds: Current Medications Olanzapine (ZyPREXA ZYDIS) 2.5 mg PRN Q2HR PRN PO Psychosis Last administered on 03/13/18 14:37; Start 03/08/18 at 03:45 Acetaminophen (Tylenol) 650 mg PRN Q8HRS PRN PO PAIN / TEMP; Start 03/08/18 at 03:45; Status UNV Brimonidine Tartrate (Alphagan) 1 drop BID OU Last administered on 03/13/18 19 :42; Start 03/08/18 at 09:00 Carbidopa/Levodopa (Sinemet 25/100) 1 tab QID PO Last administered on 19:37; Start 03/08/18 at 09:00 Vitamin D (Vitamin D3) 1,000 unit DAILY PO Last administered on 03/13/18at 07:49 ; Start 03/08/18 at 09:00 Gabapentin (Neurontin) 100 mg TID PO Last administered on 03/13/18 19:37; Start 03/08/18 at 09:00 Levothyroxine Sodium (Synthroid) 75 mcg DAILYAC PO Last administered on at 10:53; Start 03/08/18 at 07:30; Stop 03/08/18 at 11:19; Status DC Multi-Ingred Cream/Lotion/Oil/ Oint (Artificial Tears Eye Ointment) 1 jose a HS OU Last administered on 03/13/18 19:45; Start 03/08/18 at 21:00 Moxifloxacin HCl (Vigamox) 1 drop QID OD Last administered on 03/13/18 19:42; Start 03/08/18 at 09:00; Stop 03/30/18 at 21:05 Nystatin (Nystop) 1 jose a PRN BID PRN TP RASH Last administered on 03/12/18 08: 01; Start 03/08/18 at 03:45 Prednisolone Acetate (Pred Forte) 1 drop DAILY OD Last administered on 19:42; Start 03/08/18 at 09:00; Stop 03/30/18 at 09:05 Senna/Docusate Sodium (Senna Plus) 2 tab DAILY PO Last administered on 07:49; Start 03/08/18 at 09:00 Apixaban (Eliquis) 5 mg BID PO Last administered on 03/13/18 19:37; Start 03/08 at 09:00 Acetaminophen/ Aspirin/Caffeine (Excedrin Migraine) 1 tab PRN Q6HRS PRN PO MIGRAINE HEADACHE Last administered on 03/13/18 14:52; Start 03/08/18 at 04:00 Atorvastatin Calcium (Lipitor) 10 mg QHS PO Last administered on 03/13/18 19: 37; Start 03/08/18 at 21:00 Artificial Tears (Artificial Tears) 1 drop QID OU Last administered on 19:45; Start 03/08/18 at 09:00 Latanoprost (Xalatan) 1 drop QHS OU Last administered on 03/13/18 19:42; Start 03/08/18 at 21:00 Polyethylene Glycol (miraLAX) 17 gm PRN Q8HRS PRN PO CONSTIPATION; Start at 09:00 Timolol Maleate (Timoptic 0.5% [facility]) 1 drop BID OU Last administered on 19:43; Start 03/08/18 at 09:00 Quetiapine Fumarate (SEROquel) 50 mg DAILY PO Last administered on 03/13/18 07 :49; Start 03/08/18 at 09:00 Quetiapine Fumarate (SEROquel) 150 mg QHS PO Last administered on 03/10/18 20: 42; Start 03/08/18 at 21:00; Stop 03/11/18 at 18:40; Status DC Venlafaxine HCl (Effexor) 50 mg TID PO Last administered on 03/11/18at 14:31; Start 03/08/18 at 09:00; Stop 03/11/18 at 18:40; Status DC Acetaminophen (Tylenol) 650 mg PRN Q6HRS PRN PO PAIN / TEMP; Start 03/08/18 at 03:45 Multi-Ingredient Ointment (Analgesic [place]) 1 jose a PRN QID PRN TP MUSCLE PAIN; Start 03/08/18 at 03:45 Al Hydroxide/Mg Hydroxide (Mylanta Plus Xs) 15 ml PRN AFTMEALHC PRN PO DYSPEPSIA; Start 03/08/18 at 03:45 Magnesium Hydroxide (Milk Of Magnesia) 2,400 mg PRN QHS PRN PO CONSTIPATION; Start 03/08/18 at 03:45 Info (Anti-Coagulation Monitoring By Pharmacy) 1 each PRN DAILY PRN MC SEE COMMENTS; Start 03/08/18 at 05:00; Status Cancel Levothyroxine Sodium (Synthroid) 75 mcg DAILY06 PO Last administered on at 05:55; Start 03/09/18 at 06:00 Trazodone HCl (Desyrel) 50 mg QHS PO Last administered on 03/13/18 19:38; Start 03/08/18 at 21:00 Trazodone HCl (Desyrel) 50 mg PRN QHS PRN PO Insomnia; Start 03/08/18 at 19:30 Cefpodoxime Proxetil (Vantin) 200 mg BID PO Last administered on 03/13/18at 19: 38; Start 03/09/18 at 21:00 Lactobacillus Rhamnosus (Culturelle) 1 cap BID PO Last administered on 19:37; Start 03/10/18 at 09:00 Ropinirole HCl (Requip) 0.5 mg TID PO Last administered on 03/13/18 19:37; Start 03/10/18 at 14:00 Divalproex Sodium (Depakote Sprinkles) 250 mg HS PO Last administered on 19:38; Start 03/11/18 at 21:00 Quetiapine Fumarate (SEROquel) 100 mg HS PO Last administered on 7/11/18at 19: 38; Start 03/11/18 at 21:00 Venlafaxine HCl (Effexor) 37.5 mg BID PO Last administered on 03/13/18at 19:38; Start 03/11/18 at 21:00 Active Scripts Active Reported Vitamin D3 (Cholecalciferol (Vitamin D3)) 1,000 Unit Tablet 1,000 Unit PO DAILY Vigamox (Moxifloxacin Hcl) 3 Ml Drops 1 Drop OD QID Venlafaxine Hcl Er (Venlafaxine Hcl) 150 Mg Cap.er.24h 150 Mg PO DAILY Timoptic (Timolol Maleate) 10 Ml Drops 1 Drop EACHEYE BID Seroquel (Quetiapine Fumarate) 50 Mg Tablet 50 Mg PO DAILY Seroquel (Quetiapine Fumarate) 100 Mg Tablet 150 Mg PO HS Senna-Docusate Sodium Tablet (Sennosides/Docusate Sodium) 1 Each Tablet 2 Tab PO DAILY Prednisolone Acetate 5 Ml Drops.susp 1 Drop OD DAILY Nystop (Nystatin) 60 Gm Powder 1 Jose A TP PRN BID PRN Artificial Tears Eye Drops (Dextran 70/Hypromellose) 15 Ml Drops 1 Drop EACHEYE QID Miralax (Polyethylene Glycol 3350) 17 Gm Powd.pack 17 Gm PO PRN Q8HRS PRN Artificial Tears Eye Oint (Mineral Oil/Petrolatum,White) 3.5 Gm Oint...g. 1 Drop OU HS Levothyroxine Sodium 75 Mcg Tablet 75 Mcg PO DAILYAC Latanoprost 2.5 Ml Drops 1 Drop EACHEYE QHS Gabapentin 100 Mg Capsule 100 Mg PO TID Excedrin Extra Strength Caplet (Aspirin/Acetaminophen/Caffeine) 1 Each Tablet 1 Tab PO PRN Q5HRS Eliquis (Apixaban) 5 Mg Tablet 5 Mg PO BID Sinemet 25-100 Mg Tablet (Carbidopa/Levodopa) 1 Each Tablet 1 Tab PO QID Brimonidine Tartrate 5 Ml Drops 1 Drop OU BID Atorvastatin Calcium 10 Mg Tablet 10 Mg PO QHS Tylenol (Acetaminophen) 325 Mg Tablet 650 Mg PO PRN Q8HRS PRN I have reviewed the current psychotropics carefully including drug interactions. Risk benefit ratio favors no change other than as noted in my dictated progress note. Diagnosis: Problems: (1) Anxiety disorder (2) Bipolar affective, mixed, sev w/ psych (3) Dementia, vascular, with delusions (4) Impulse control disorder HERMILO LEWIS MD Mar 13, 2018 20:55
--- NOTE | 2018-03-13 21:53 | PN ---
DATE: 03/12/2018 PSYCHIATRIC PROGRESS NOTE This is a late entry 03/12/2018 covers elements not covered in my initial note 03/12/2018. SUBJECTIVE: I met with the patient in the evening. The patient slept 6-1/2 hours previous evening. Per nursing report, she has not been beating on herself like she was doing previously. She is somewhat withdrawn, has to be fed but eating well with assistance from nursing staff. She was yelling in the evening when visitors were there, did okay over supper with her intake with staff helping her. REVIEW OF SYSTEMS: Ambulation impaired, in a wheelchair. She still had some drooling. No CV, , pulmonary, eye, ENT system symptoms on review. Reliability poor. MENTAL STATUS EXAM: Oriented to herself and situation. Speech is difficult to understand at times. Abstraction fair, computation impaired, language function intact, attention span short. Mood and affect remain somewhat labile. No active suicidal or homicidal ideation. LABORATORY DATA: Reviewed. IMPRESSION: Bipolar 1 disorder, mixed with psychotic features; cognitive disorder, unspecified; anxiety disorder, unspecified. PLAN: We are awaiting psychiatric records from [facility] on her bipolar diagnosis. Continue Seroquel, Depakote, Effexor was reduced given her manic symptoms. Depakote is being adjusted and we will follow with labs level to reach therapeutic level and review her records from prior psychiatric hospitalizations. MAN Dewayne LEWIS MD DR: LIZZETH/david JOB#: [id number] / [id number]
[2018-03-14] MEDS: LEVOTHYROXINE 75 MCG TABLET PO SCH (06:09)
[2018-03-14 06:24] VITALS: BP 140/76
[2018-03-14 06:37] LABS: BASO % 1 % (0-3); EOS # 0.2 x10^3/uL (0.0-0.7); EOS % 4 % (0-3); HEMATOCRIT 44.4 % (36.0-47.0); HEMOGLOBIN 14.8 g/dL (12.0-15.5); LYMPH # 1.4 x10^3/uL (1.0-4.8); LYMPH % 27 % (24-48); MEAN CORPUSCULAR HEMOGLOBIN 31 pg (25-35); MEAN CORPUSCULAR HGB CONC 33 g/dL (31-37); MEAN CORPUSCULAR VOLUME 93 fL (79-100); MONO # 0.4 x10^3/uL (0.0-1.1); MONO % 9 % (0-9); NEUT % 59 % (31-73); PLATELET COUNT 365 x10^3/uL (140-400); RED BLOOD COUNT 4.79 x10^6/uL (3.50-5.40); RED CELL DISTRIBUTION WIDTH 13.4 % (11.5-14.5); WHITE BLOOD COUNT 5.1 x10^3/uL (4.0-11.0)
[2018-03-14 06:49] LABS: VAL ACID 26 mcg/mL (50-100)
[2018-03-14 06:50] LABS: ALBUMIN 3.4 g/dL (3.4-5.0); ALBUMIN/GLOBULIN RATIO 0.9 (1.0-1.7); CALCIUM 9.6 mg/dL (8.5-10.1); CREATININE 0.9 mg/dL (0.6-1.0); GFR 63.9; TOTAL BILIRUBIN 0.3 mg/dL (0.2-1.0); TOTAL PROTEIN 7.4 g/dL (6.4-8.2)
[2018-03-14] MEDS: MOXIFLOXACIN 0.5% OPHTH SOLUTION 3ML BOTTLE. OD SCH ×4 (09:00→21:43)
[2018-03-14] MEDS: LACTOBACILLUS RHAMNOSUS GG 1 CAPSULE. PO SCH ×2 (09:00→20:31)
[2018-03-14] MEDS: CEFPODOXIME PROXETIL 100 MG TABLET PO SCH ×2 (09:00→20:33)
[2018-03-14] MEDS: CHOLECALCIFEROL (VITAMIN D3) 1,000 UNIT TABLET PO SCH (09:00)
[2018-03-14] MEDS: QUEtiapine 50 MG TABLET. PO SCH (09:00)
[2018-03-14] MEDS: GABAPENTIN 100 MG CAPSULE. PO SCH ×3 (09:00→20:31)
[2018-03-14] MEDS: VENLAFAXINE 37.5 MG TABLET. PO SCH ×2 (09:00→20:30)
[2018-03-14] MEDS: APIXABAN 5 MG TABLET. PO SCH ×2 (09:00→20:31)
[2018-03-14] MEDS: rOPINIRole 0.5 MG TABLET. PO SCH (09:00)
[2018-03-14] MEDS: TIMOLOL 0.5% OPHTH SOLUTION 5ML BOTTLE. OU SCH ×2 (09:00→21:43)
[2018-03-14] MEDS: CARBIDOPA/LEVODOPA 25/100MG TABLET PO SCH ×4 (09:00→20:31)
[2018-03-14] MEDS: POLYVINYL ALCOHOL 1.4% OPHTH SOLUTION 15ML BOTTLE. OU SCH ×4 (09:00→21:44)
[2018-03-14] MEDS: BRIMONIDINE 0.2% OPHTH SOLUTION 5ML BOTTLE. OU SCH ×2 (09:00→21:43)
[2018-03-14] MEDS: SENNOSIDES/DOCUSATE 8.6/50MG TABLET. PO SCH (09:00)
[2018-03-14] MEDS: risperiDONE 0.25 MG TABLET. PO SCH (13:01)
[2018-03-14] MEDS: rOPINIRole 1 MG TABLET. PO SCH ×2 (13:02→20:31)
[2018-03-14] MEDS: ASA/APAP/CAFFEINE 250/250/65MG TABLET. PO PRN ×2 (18:00→21:49)
[2018-03-14] MEDS: ATORVASTATIN CALCIUM 10 MG TABLET. PO SCH (20:30)
[2018-03-14] MEDS: traZODone 50 MG TABLET. PO SCH (20:31)
[2018-03-14] MEDS: risperiDONE 0.5 MG TABLET. PO SCH (20:33)
--- NOTE | 2018-03-14 21:00 | PDOC ---
Exam Note: Massimo Note: Please also refer to the separate dictated note~for this date of service dictated separately.~Patient seen individually. Discussed the patient with Nursing staff reviewed the chart.~Reviewed interim history and current functioning. Reviewed vital signs,~Labs/ Radiology~and current medications noted below. Continue current treatment with the changes noted in the dictated addendum note Assessment: Vital Signs: Vital Signs Date Time Temp Pulse Resp B/P (MAP) Pulse Ox O2 Delivery O2 Flow Rate FiO2 03/14/18 06:24 97.5 98 17 140/76 (97) 99 03/12/18 16:17 Room Air I&O Intake and Output 03/14/18 07:00 Intake Total 1080 ml Balance 1080 ml Intake Oral 1080 ml Labs: Laboratory Tests Test 03/14/18 06:23 White Blood Count 5.1 x10^3/uL (4.0-11.0) Red Blood Count 4.79 x10^6/uL (3.50-5.40) Hemoglobin 14.8 g/dL (12.0-15.5) Hematocrit 44.4 % (36.0-47.0) Mean Corpuscular Volume 93 fL (79-100) Mean Corpuscular Hemoglobin 31 pg (25-35) Mean Corpuscular Hemoglobin Concent 33 g/dL (31-37) Red Cell Distribution Width 13.4 % (11.5-14.5) Platelet Count 365 x10^3/uL (140-400) Neutrophils (%) (Auto) 59 % (31-73) Lymphocytes (%) (Auto) 27 % (24-48) Monocytes (%) (Auto) 9 % (0-9) Eosinophils (%) (Auto) 4 % (0-3) H Basophils (%) (Auto) 1 % (0-3) Neutrophils # (Auto) 3.0 x10^3uL (1.8-7.7) Lymphocytes # (Auto) 1.4 x10^3/uL (1.0-4.8) Monocytes # (Auto) 0.4 x10^3/uL (0.0-1.1) Eosinophils # (Auto) 0.2 x10^3/uL (0.0-0.7) Basophils # (Auto) 0.0 x10^3/uL (0.0-0.2) Sodium Level 143 mmol/L (136-145) Potassium Level 4.0 mmol/L (3.5-5.1) Chloride Level 105 mmol/L (98-107) Carbon Dioxide Level 35 mmol/L (21-32) H Anion Gap 3 (6-14) L Blood Urea Nitrogen 32 mg/dL (7-20) H Creatinine 0.9 mg/dL (0.6-1.0) Estimated GFR (Cockcroft-Gault) 63.9 BUN/Creatinine Ratio 36 (6-20) H Glucose Level 109 mg/dL (70-99) H Calcium Level 9.6 mg/dL (8.5-10.1) Total Bilirubin 0.3 mg/dL (0.2-1.0) Aspartate Amino Transferase (AST) 28 U/L (15-37) Alanine Aminotransferase (ALT) 13 U/L (14-59) L Alkaline Phosphatase 109 U/L (46-116) Total Protein 7.4 g/dL (6.4-8.2) Albumin 3.4 g/dL (3.4-5.0) Albumin/Globulin Ratio 0.9 (1.0-1.7) L Valproic Acid Level 26 mcg/mL (50-100) L Valproic Acid Last Dose Date 03/13/2018 Valproic Acid Last Dose Time 2100 Current Medications: Meds: Current Medications Olanzapine (ZyPREXA ZYDIS) 2.5 mg PRN Q2HR PRN PO Psychosis Last administered on 03/14/18 11:10; Start 03/08/18 at 03:45 Acetaminophen (Tylenol) 650 mg PRN Q8HRS PRN PO PAIN / TEMP; Start 03/08/18 at 03:45; Status UNV Brimonidine Tartrate (Alphagan) 1 drop BID OU Last administered on 03/14/18 09 :00; Start 03/08/18 at 09:00 Carbidopa/Levodopa (Sinemet 25/100) 1 tab QID PO Last administered on 20:31; Start 03/08/18 at 09:00 Vitamin D (Vitamin D3) 1,000 unit DAILY PO Last administered on 03/14/18 09:00 ; Start 03/08/18 at 09:00 Gabapentin (Neurontin) 100 mg TID PO Last administered on 03/14/18 20:31; Start 03/08/18 at 09:00 Levothyroxine Sodium (Synthroid) 75 mcg DAILYAC PO Last administered on 10:53; Start 03/08/18 at 07:30; Stop 03/08/18 at 11:19; Status DC Multi-Ingred Cream/Lotion/Oil/ Oint (Artificial Tears Eye Ointment) 1 jose a HS OU Last administered on 03/13/18 19:45; Start 03/08/18 at 21:00 Moxifloxacin HCl (Vigamox) 1 drop QID OD Last administered on 03/14/18 17:15; Start 03/08/18 at 09:00; Stop 03/30/18 at 21:05 Nystatin (Nystop) 1 jose a PRN BID PRN TP RASH Last administered on 03/12/18 08: 01; Start 03/08/18 at 03:45 Prednisolone Acetate (Pred Forte) 1 drop DAILY OD Last administered on 19:42; Start 03/08/18 at 09:00; Stop 03/30/18 at 09:05 Senna/Docusate Sodium (Senna Plus) 2 tab DAILY PO Last administered on 09:00; Start 03/08/18 at 09:00 Apixaban (Eliquis) 5 mg BID PO Last administered on 03/14/18 20:31; Start 03/08 at 09:00 Acetaminophen/ Aspirin/Caffeine (Excedrin Migraine) 1 tab PRN Q6HRS PRN PO MIGRAINE HEADACHE Last administered on 03/14/18 18:00; Start 03/08/18 at 04:00 Atorvastatin Calcium (Lipitor) 10 mg QHS PO Last administered on 03/14/18 20: 30; Start 03/08/18 at 21:00 Artificial Tears (Artificial Tears) 1 drop QID OU Last administered on 17:15; Start 03/08/18 at 09:00 Latanoprost (Xalatan) 1 drop QHS OU Last administered on 03/13/18 19:42; Start 03/08/18 at 21:00 Polyethylene Glycol (miraLAX) 17 gm PRN Q8HRS PRN PO CONSTIPATION; Start at 09:00 Timolol Maleate (Timoptic 0.5% [facility]) 1 drop BID OU Last administered on 09:00; Start 03/08/18 at 09:00 Quetiapine Fumarate (SEROquel) 50 mg DAILY PO Last administered on 03/14/18at 09 :00; Start 03/08/18 at 09:00; Stop 03/14/18 at 11:08; Status DC Quetiapine Fumarate (SEROquel) 150 mg QHS PO Last administered on 03/10/18at 20: 42; Start 03/08/18 at 21:00; Stop 03/11/18 at 18:40; Status DC Venlafaxine HCl (Effexor) 50 mg TID PO Last administered on 03/11/18 14:31; Start 03/08/18 at 09:00; Stop 03/11/18 at 18:40; Status DC Acetaminophen (Tylenol) 650 mg PRN Q6HRS PRN PO PAIN / TEMP; Start 03/08/18 at 03:45 Multi-Ingredient Ointment (Analgesic [place]) 1 jose a PRN QID PRN TP MUSCLE PAIN; Start 03/08/18 at 03:45 Al Hydroxide/Mg Hydroxide (Mylanta Plus Xs) 15 ml PRN AFTMEALHC PRN PO DYSPEPSIA; Start 03/08/18 at 03:45 Magnesium Hydroxide (Milk Of Magnesia) 2,400 mg PRN QHS PRN PO CONSTIPATION; Start 03/08/18 at 03:45 Info (Anti-Coagulation Monitoring By Pharmacy) 1 each PRN DAILY PRN MC SEE COMMENTS; Start 03/08/18 at 05:00; Status Cancel Levothyroxine Sodium (Synthroid) 75 mcg DAILY06 PO Last administered on at 06:09; Start 03/09/18 at 06:00 Trazodone HCl (Desyrel) 50 mg QHS PO Last administered on 03/14/18at 20:31; Start 03/08/18 at 21:00 Trazodone HCl (Desyrel) 50 mg PRN QHS PRN PO Insomnia Last administered on 03/14at 00:39; Start 03/08/18 at 19:30 Cefpodoxime Proxetil (Vantin) 200 mg BID PO Last administered on 03/14/18 20: 33; Start 03/09/18 at 21:00 Lactobacillus Rhamnosus (Culturelle) 1 cap BID PO Last administered on 20:31; Start 03/10/18 at 09:00 Ropinirole HCl (Requip) 0.5 mg TID PO Last administered on 03/14/18 09:00; Start 03/10/18 at 14:00; Stop 03/14/18 at 12:28; Status DC Divalproex Sodium (Depakote Sprinkles) 250 mg HS PO Last administered on 19:38; Start 03/11/18 at 21:00; Stop 03/14/18 at 11:08; Status DC Quetiapine Fumarate (SEROquel) 100 mg HS PO Last administered on 03/13/18 19: 38; Start 03/11/18 at 21:00; Stop 03/14/18 at 11:08; Status DC Venlafaxine HCl (Effexor) 37.5 mg BID PO Last administered on 03/14/18 20:30; Start 03/11/18 at 21:00 Ropinirole HCl (Requip) 1 mg TID PO Last administered on 03/14/18 20:31; Start 03/14/18 at 14:00 Divalproex Sodium (Depakote Sprinkles) 250 mg BID PO ; Start 03/14/18 at 21:00 Risperidone (RisperDAL) 0.25 mg DAILY PO Last administered on 03/14/18 13:01; Start 03/14/18 at 12:00 Risperidone (RisperDAL) 0.5 mg HS PO Last administered on 03/14/18 20:33; Start 03/14/18 at 21:00 Active Scripts Active Reported Vitamin D3 (Cholecalciferol (Vitamin D3)) 1,000 Unit Tablet 1,000 Unit PO DAILY Vigamox (Moxifloxacin Hcl) 3 Ml Drops 1 Drop OD QID Venlafaxine Hcl Er (Venlafaxine Hcl) 150 Mg Cap.er.24h 150 Mg PO DAILY Timoptic (Timolol Maleate) 10 Ml Drops 1 Drop EACHEYE BID Seroquel (Quetiapine Fumarate) 50 Mg Tablet 50 Mg PO DAILY Seroquel (Quetiapine Fumarate) 100 Mg Tablet 150 Mg PO HS Senna-Docusate Sodium Tablet (Sennosides/Docusate Sodium) 1 Each Tablet 2 Tab PO DAILY Prednisolone Acetate 5 Ml Drops.susp 1 Drop OD DAILY Nystop (Nystatin) 60 Gm Powder 1 Jose A TP PRN BID PRN Artificial Tears Eye Drops (Dextran 70/Hypromellose) 15 Ml Drops 1 Drop EACHEYE QID Miralax (Polyethylene Glycol 3350) 17 Gm Powd.pack 17 Gm PO PRN Q8HRS PRN Artificial Tears Eye Oint (Mineral Oil/Petrolatum,White) 3.5 Gm Oint...g. 1 Drop OU HS Levothyroxine Sodium 75 Mcg Tablet 75 Mcg PO DAILYAC Latanoprost 2.5 Ml Drops 1 Drop EACHEYE QHS Gabapentin 100 Mg Capsule 100 Mg PO TID Excedrin Extra Strength Caplet (Aspirin/Acetaminophen/Caffeine) 1 Each Tablet 1 Tab PO PRN Q5HRS Eliquis (Apixaban) 5 Mg Tablet 5 Mg PO BID Sinemet 25-100 Mg Tablet (Carbidopa/Levodopa) 1 Each Tablet 1 Tab PO QID Brimonidine Tartrate 5 Ml Drops 1 Drop OU BID Atorvastatin Calcium 10 Mg Tablet 10 Mg PO QHS Tylenol (Acetaminophen) 325 Mg Tablet 650 Mg PO PRN Q8HRS PRN I have reviewed the current psychotropics carefully including drug interactions. Risk benefit ratio favors no change other than as noted in my dictated progress note. Diagnosis: Problems: (1) Anxiety disorder (2) Bipolar affective, mixed, sev w/ psych (3) Dementia, vascular, with delusions (4) Impulse control disorder HERMILO LEWIS MD Mar 14, 2018 21:00
[2018-03-14] MEDS: MINERAL OIL/PETROLATUM,WHITE OPHTH OINT 3.5GM TUBE. OU SCH (21:43)
[2018-03-14] MEDS: LATANOPROST 0.005% OPHTH SOLUTION 2.5ML BOTTLE. OU SCH (21:44)
[2018-03-14] MEDS: prednisoLONE ACETATE 1% OPHTH SUSPENSION 5ML BOTTLE. OD SCH (21:44)
[2018-03-14] MEDS: DIVALPROEX 125 MG CAP.SPRINK PO SCH (21:47)
[2018-03-15] MEDS: LEVOTHYROXINE 75 MCG TABLET PO SCH (06:08)
[2018-03-15 06:13] VITALS: BP 166/81
[2018-03-15] MEDS: risperiDONE 0.25 MG TABLET. PO SCH (10:57)
[2018-03-15] MEDS: CHOLECALCIFEROL (VITAMIN D3) 1,000 UNIT TABLET PO SCH (10:58)
[2018-03-15] MEDS: CEFPODOXIME PROXETIL 100 MG TABLET PO SCH ×2 (10:58→19:00)
[2018-03-15] MEDS: rOPINIRole 1 MG TABLET. PO SCH ×3 (10:58→19:01)
[2018-03-15] MEDS: APIXABAN 5 MG TABLET. PO SCH ×2 (10:58→19:01)
[2018-03-15] MEDS: LACTOBACILLUS RHAMNOSUS GG 1 CAPSULE. PO SCH ×2 (10:58→19:00)
[2018-03-15] MEDS: DIVALPROEX 125 MG CAP.SPRINK PO SCH ×2 (10:58→19:01)
[2018-03-15] MEDS: CARBIDOPA/LEVODOPA 25/100MG TABLET PO SCH ×4 (10:58→19:00)
[2018-03-15] MEDS: TIMOLOL 0.5% OPHTH SOLUTION 5ML BOTTLE. OU SCH ×2 (10:59→19:02)
[2018-03-15] MEDS: MOXIFLOXACIN 0.5% OPHTH SOLUTION 3ML BOTTLE. OD SCH ×4 (10:59→19:04)
[2018-03-15] MEDS: GABAPENTIN 100 MG CAPSULE. PO SCH ×3 (10:59→19:01)
[2018-03-15] MEDS: SENNOSIDES/DOCUSATE 8.6/50MG TABLET. PO SCH (10:59)
[2018-03-15] MEDS: POLYVINYL ALCOHOL 1.4% OPHTH SOLUTION 15ML BOTTLE. OU SCH ×4 (10:59→19:03)
[2018-03-15] MEDS: VENLAFAXINE 37.5 MG TABLET. PO SCH ×2 (10:59→19:00)
[2018-03-15] MEDS: prednisoLONE ACETATE 1% OPHTH SUSPENSION 5ML BOTTLE. OD SCH (10:59)
[2018-03-15] MEDS: BRIMONIDINE 0.2% OPHTH SOLUTION 5ML BOTTLE. OU SCH ×2 (11:00→19:03)
[2018-03-15 16:52] VITALS: BP 126/81
[2018-03-15] MEDS: MAGNESIUM HYDROXIDE 2,400 MG/30 ML ORAL.SUSP. PO PRN (17:37)
[2018-03-15] MEDS: ATORVASTATIN CALCIUM 10 MG TABLET. PO SCH (19:01)
[2018-03-15] MEDS: traZODone 50 MG TABLET. PO SCH (19:01)
[2018-03-15] MEDS: risperiDONE 0.5 MG TABLET. PO SCH (19:01)
[2018-03-15] MEDS: MINERAL OIL/PETROLATUM,WHITE OPHTH OINT 3.5GM TUBE. OU SCH (19:02)
[2018-03-15] MEDS: LATANOPROST 0.005% OPHTH SOLUTION 2.5ML BOTTLE. OU SCH (19:03)
--- NOTE | 2018-03-15 22:45 | PN ---
DATE: 03/13/2018 This is a late entry for 03/13/2018 covers elements not covered in my initial note. SUBJECTIVE: I met with the patient in the evening. The patient slept 8 hours previous evening. She did better in the morning, but lunchtime, she was quite labile in her mood, agitated, aggressive, hitting the table, complaining of headaches. REVIEW OF SYSTEMS: Ambulation impaired. No CV, , pulmonary, eye, ENT system symptoms on review. Reliability varies. MENTAL STATUS EXAM: Oriented to herself and situation. Speech coherent, can be rapid, loud at times. Abstraction fair, computation impaired, language function intact. Mood and affect remains labile. LABORATORY DATA: Labs and valproic acid level are due on 03/14/2018. IMPRESSION: Unchanged from initial note, bipolar 1 disorder, mixed with psychotic features; cognitive disorder, unspecified. PLAN: Awaiting records from [facility] and inpatient psychiatry. Continue psychotropics from initial note. Adjust Depakote to reach therapeutic level. HERMILO LEWIS MD DR: LIZZETH/david JOB#: [id number] / [id number]
--- NOTE | 2018-03-15 22:46 | PN ---
DATE: 03/14/2018 This is a late entry for date of service 03/14/2018 and covers the elements not covered in my initial note of 03/14/2018. SUBJECTIVE: The patient staffed at a treatment team meeting in the morning with the patient's sister, Pita, attending the lengthy conference and we had a conference without the sister prior to that since at that time, the sister was unavailable. Reviewed the patient's history, diagnosis of bipolar disorder and I have reviewed extensive records from [facility] as well about her bipolar disorder. Past treatments on lithium and Risperdal. However, when she came to us at this time, she was on no mood stabilizer and rather large dosages of antidepressant which were probably worsening her mood swings, bev and psychotic symptoms. She slept 6 hours previous evening. REVIEW OF SYSTEMS: Ambulation impaired, in wheelchair. No CV, , pulmonary, eye system symptoms on review. Reliability varies. MENTAL STATUS EXAM: Oriented to herself and situation. Speech coherent, rapid, loud at times. Abstraction fair, computation impaired, language function intact. Attention span short. She remains paranoid, delusional. No active suicidal or homicidal ideation. LABORATORY DATA: Reviewed. IMPRESSION: Bipolar 1 disorder, mixed with psychotic features; cognitive disorder, unspecified. Rest unchanged. PLAN: Change the Seroquel to Risperdal 0.25 mg in the morning and 0.5 mg at night. Valproic acid level is 23 on Depakote 250 at bedtime. We will increase to 250 mg twice a day. Check CBC, CMP, valproic acid level in 3 days. Continue rest unchanged. MAN Dewayne LEWIS MD DR: LIZZETH/david JOB#: [id number] / [id number]
--- NOTE | 2018-03-15 23:22 | PDOC ---
Exam Note: Massimo Note: Please also refer to the separate dictated note~for this date of service dictated separately.~Patient seen individually. Discussed the patient with Nursing staff reviewed the chart.~Reviewed interim history and current functioning. Reviewed vital signs,~Labs/ Radiology~and current medications noted below. Continue current treatment with the changes noted in the dictated addendum note Assessment: Vital Signs: Vital Signs Date Time Temp Pulse Resp B/P (MAP) Pulse Ox O2 Delivery O2 Flow Rate FiO2 03/15/18 16:52 98.0 92 18 126/81 (96) 97 03/12/18 16:17 Room Air I&O Intake and Output 03/15/18 07:00 Intake Total 1200 ml Balance 1200 ml Intake Oral 1200 ml Current Medications: Meds: Current Medications Olanzapine (ZyPREXA ZYDIS) 2.5 mg PRN Q2HR PRN PO Psychosis Last administered on 03/14/18 11:10; Start 03/08/18 at 03:45 Acetaminophen (Tylenol) 650 mg PRN Q8HRS PRN PO PAIN / TEMP; Start 03/08/18 at 03:45; Status UNV Brimonidine Tartrate (Alphagan) 1 drop BID OU Last administered on 03/15/18 19 :03; Start 03/08/18 at 09:00 Carbidopa/Levodopa (Sinemet 25/100) 1 tab QID PO Last administered on 19:00; Start 03/08/18 at 09:00 Vitamin D (Vitamin D3) 1,000 unit DAILY PO Last administered on 03/15/18at 10:58 ; Start 03/08/18 at 09:00 Gabapentin (Neurontin) 100 mg TID PO Last administered on 03/15/18 19:01; Start 03/08/18 at 09:00 Levothyroxine Sodium (Synthroid) 75 mcg DAILYAC PO Last administered on 10:53; Start 03/08/18 at 07:30; Stop 03/08/18 at 11:19; Status DC Multi-Ingred Cream/Lotion/Oil/ Oint (Artificial Tears Eye Ointment) 1 jose a HS OU Last administered on 03/15/18 19:02; Start 03/08/18 at 21:00 Moxifloxacin HCl (Vigamox) 1 drop QID OD Last administered on 03/15/18 19:04; Start 03/08/18 at 09:00; Stop 03/30/18 at 21:05 Nystatin (Nystop) 1 jose a PRN BID PRN TP RASH Last administered on 03/12/18 08: 01; Start 03/08/18 at 03:45 Prednisolone Acetate (Pred Forte) 1 drop DAILY OD Last administered on 10:59; Start 03/08/18 at 09:00; Stop 03/30/18 at 09:05 Senna/Docusate Sodium (Senna Plus) 2 tab DAILY PO Last administered on 10:59; Start 03/08/18 at 09:00 Apixaban (Eliquis) 5 mg BID PO Last administered on 03/15/18 19:01; Start 03/08 at 09:00 Acetaminophen/ Aspirin/Caffeine (Excedrin Migraine) 1 tab PRN Q6HRS PRN PO MIGRAINE HEADACHE Last administered on 03/14/18 21:49; Start 03/08/18 at 04:00 Atorvastatin Calcium (Lipitor) 10 mg QHS PO Last administered on 03/15/18 19: 01; Start 03/08/18 at 21:00 Artificial Tears (Artificial Tears) 1 drop QID OU Last administered on 19:03; Start 03/08/18 at 09:00 Latanoprost (Xalatan) 1 drop QHS OU Last administered on 03/15/18 19:03; Start 03/08/18 at 21:00 Polyethylene Glycol (miraLAX) 17 gm PRN Q8HRS PRN PO CONSTIPATION; Start at 09:00 Timolol Maleate (Timoptic 0.5% [facility]) 1 drop BID OU Last administered on 19:02; Start 03/08/18 at 09:00 Quetiapine Fumarate (SEROquel) 50 mg DAILY PO Last administered on 03/14/18 09 :00; Start 03/08/18 at 09:00; Stop 03/14/18 at 11:08; Status DC Quetiapine Fumarate (SEROquel) 150 mg QHS PO Last administered on 03/10/18 20: 42; Start 03/08/18 at 21:00; Stop 03/11/18 at 18:40; Status DC Venlafaxine HCl (Effexor) 50 mg TID PO Last administered on 03/11/18at 14:31; Start 03/08/18 at 09:00; Stop 03/11/18 at 18:40; Status DC Acetaminophen (Tylenol) 650 mg PRN Q6HRS PRN PO PAIN / TEMP; Start 03/08/18 at 03:45 Multi-Ingredient Ointment (Analgesic [place]) 1 jose a PRN QID PRN TP MUSCLE PAIN; Start 03/08/18 at 03:45 Al Hydroxide/Mg Hydroxide (Mylanta Plus Xs) 15 ml PRN AFTMEALHC PRN PO DYSPEPSIA; Start 03/08/18 at 03:45 Magnesium Hydroxide (Milk Of Magnesia) 2,400 mg PRN QHS PRN PO CONSTIPATION Last administered on 03/15/18at 17:37; Start 03/08/18 at 03:45 Info (Anti-Coagulation Monitoring By Pharmacy) 1 each PRN DAILY PRN MC SEE COMMENTS; Start 03/08/18 at 05:00; Status Cancel Levothyroxine Sodium (Synthroid) 75 mcg DAILY06 PO Last administered on at 06:08; Start 03/09/18 at 06:00 Trazodone HCl (Desyrel) 50 mg QHS PO Last administered on 03/15/18at 19:01; Start 03/08/18 at 21:00 Trazodone HCl (Desyrel) 50 mg PRN QHS PRN PO Insomnia Last administered on 03/14at 00:39; Start 03/08/18 at 19:30 Cefpodoxime Proxetil (Vantin) 200 mg BID PO Last administered on 03/15/18 19: 00; Start 03/09/18 at 21:00 Lactobacillus Rhamnosus (Culturelle) 1 cap BID PO Last administered on at 19:00; Start 03/10/18 at 09:00 Ropinirole HCl (Requip) 0.5 mg TID PO Last administered on 03/14/18at 09:00; Start 03/10/18 at 14:00; Stop 03/14/18 at 12:28; Status DC Divalproex Sodium (Depakote Sprinkles) 250 mg HS PO Last administered on 19:38; Start 03/11/18 at 21:00; Stop 03/14/18 at 11:08; Status DC Quetiapine Fumarate (SEROquel) 100 mg HS PO Last administered on 03/13/18 19: 38; Start 03/11/18 at 21:00; Stop 03/14/18 at 11:08; Status DC Venlafaxine HCl (Effexor) 37.5 mg BID PO Last administered on 03/15/18 19:00; Start 03/11/18 at 21:00 Ropinirole HCl (Requip) 1 mg TID PO Last administered on 03/15/18 19:01; Start 03/14/18 at 14:00 Divalproex Sodium (Depakote Sprinkles) 250 mg BID PO Last administered on 19:01; Start 03/14/18 at 21:00 Risperidone (RisperDAL) 0.25 mg DAILY PO Last administered on 03/15/18at 10:57; Start 03/14/18 at 12:00 Risperidone (RisperDAL) 0.5 mg HS PO Last administered on 03/15/18 19:01; Start 03/14/18 at 21:00 Active Scripts Active Reported Vitamin D3 (Cholecalciferol (Vitamin D3)) 1,000 Unit Tablet 1,000 Unit PO DAILY Vigamox (Moxifloxacin Hcl) 3 Ml Drops 1 Drop OD QID Venlafaxine Hcl Er (Venlafaxine Hcl) 150 Mg Cap.er.24h 150 Mg PO DAILY Timoptic (Timolol Maleate) 10 Ml Drops 1 Drop EACHEYE BID Seroquel (Quetiapine Fumarate) 50 Mg Tablet 50 Mg PO DAILY Seroquel (Quetiapine Fumarate) 100 Mg Tablet 150 Mg PO HS Senna-Docusate Sodium Tablet (Sennosides/Docusate Sodium) 1 Each Tablet 2 Tab PO DAILY Prednisolone Acetate 5 Ml Drops.susp 1 Drop OD DAILY Nystop (Nystatin) 60 Gm Powder 1 Jose A TP PRN BID PRN Artificial Tears Eye Drops (Dextran 70/Hypromellose) 15 Ml Drops 1 Drop EACHEYE QID Miralax (Polyethylene Glycol 3350) 17 Gm Powd.pack 17 Gm PO PRN Q8HRS PRN Artificial Tears Eye Oint (Mineral Oil/Petrolatum,White) 3.5 Gm Oint...g. 1 Drop OU HS Levothyroxine Sodium 75 Mcg Tablet 75 Mcg PO DAILYAC Latanoprost 2.5 Ml Drops 1 Drop EACHEYE QHS Gabapentin 100 Mg Capsule 100 Mg PO TID Excedrin Extra Strength Caplet (Aspirin/Acetaminophen/Caffeine) 1 Each Tablet 1 Tab PO PRN Q5HRS Eliquis (Apixaban) 5 Mg Tablet 5 Mg PO BID Sinemet 25-100 Mg Tablet (Carbidopa/Levodopa) 1 Each Tablet 1 Tab PO QID Brimonidine Tartrate 5 Ml Drops 1 Drop OU BID Atorvastatin Calcium 10 Mg Tablet 10 Mg PO QHS Tylenol (Acetaminophen) 325 Mg Tablet 650 Mg PO PRN Q8HRS PRN I have reviewed the current psychotropics carefully including drug interactions. Risk benefit ratio favors no change other than as noted in my dictated progress note. Diagnosis: Problems: (1) Anxiety disorder (2) Bipolar affective, mixed, sev w/ psych (3) Dementia, vascular, with delusions (4) Impulse control disorder HERMILO LEWIS MD Mar 15, 2018 23:22
[2018-03-16 05:59] VITALS: BP 147/80
[2018-03-16] MEDS: LEVOTHYROXINE 75 MCG TABLET PO SCH (06:47)
[2018-03-16] MEDS: LACTOBACILLUS RHAMNOSUS GG 1 CAPSULE. PO SCH ×2 (09:34→20:11)
[2018-03-16] MEDS: SENNOSIDES/DOCUSATE 8.6/50MG TABLET. PO SCH (09:34)
[2018-03-16] MEDS: risperiDONE 0.25 MG TABLET. PO SCH (09:34)
[2018-03-16] MEDS: APIXABAN 5 MG TABLET. PO SCH ×2 (09:34→20:11)
[2018-03-16] MEDS: DIVALPROEX 125 MG CAP.SPRINK PO SCH ×2 (09:34→20:12)
[2018-03-16] MEDS: CHOLECALCIFEROL (VITAMIN D3) 1,000 UNIT TABLET PO SCH (09:35)
[2018-03-16] MEDS: CEFPODOXIME PROXETIL 100 MG TABLET PO SCH ×2 (09:35→20:11)
[2018-03-16] MEDS: GABAPENTIN 100 MG CAPSULE. PO SCH ×3 (09:35→20:12)
[2018-03-16] MEDS: VENLAFAXINE 37.5 MG TABLET. PO SCH ×2 (09:35→20:12)
[2018-03-16] MEDS: rOPINIRole 1 MG TABLET. PO SCH ×3 (09:35→20:12)
[2018-03-16] MEDS: CARBIDOPA/LEVODOPA 25/100MG TABLET PO SCH ×4 (09:35→20:12)
[2018-03-16] MEDS: POLYVINYL ALCOHOL 1.4% OPHTH SOLUTION 15ML BOTTLE. OU SCH ×4 (09:36→20:19)
[2018-03-16] MEDS: TIMOLOL 0.5% OPHTH SOLUTION 5ML BOTTLE. OU SCH ×2 (09:36→20:18)
[2018-03-16] MEDS: MOXIFLOXACIN 0.5% OPHTH SOLUTION 3ML BOTTLE. OD SCH ×4 (09:36→20:18)
[2018-03-16] MEDS: BRIMONIDINE 0.2% OPHTH SOLUTION 5ML BOTTLE. OU SCH ×2 (09:37→20:18)
[2018-03-16] MEDS: ASA/APAP/CAFFEINE 250/250/65MG TABLET. PO PRN ×2 (10:01→17:20)
[2018-03-16 16:13] VITALS: BP 121/80
[2018-03-16] MEDS: MAGNESIUM HYDROXIDE 2,400 MG/30 ML ORAL.SUSP. PO PRN (20:12)
[2018-03-16] MEDS: risperiDONE 0.5 MG TABLET. PO SCH (20:12)
[2018-03-16] MEDS: traZODone 50 MG TABLET. PO SCH (20:12)
[2018-03-16] MEDS: ATORVASTATIN CALCIUM 10 MG TABLET. PO SCH (20:12)
[2018-03-16] MEDS: LATANOPROST 0.005% OPHTH SOLUTION 2.5ML BOTTLE. OU SCH (20:13)
[2018-03-16] MEDS: MINERAL OIL/PETROLATUM,WHITE OPHTH OINT 3.5GM TUBE. OU SCH (21:00)
--- NOTE | 2018-03-16 23:08 | PDOC ---
Exam Note: Massimo Note: Please also refer to the separate dictated note~for this date of service dictated separately.~Patient seen individually. Discussed the patient with Nursing staff reviewed the chart.~Reviewed interim history and current functioning. Reviewed vital signs,~Labs/ Radiology~and current medications noted below. Continue current treatment with the changes noted in the dictated addendum note Assessment: Vital Signs: Vital Signs Date Time Temp Pulse Resp B/P (MAP) Pulse Ox O2 Delivery O2 Flow Rate FiO2 03/16/18 16:13 97.4 78 20 121/80 (94) 100 03/12/18 16:17 Room Air I&O Intake and Output 03/16/18 06:59 Intake Total 1200 ml Balance 1200 ml Intake Oral 1200 ml # Voids 1 Current Medications: Meds: Current Medications Olanzapine (ZyPREXA ZYDIS) 2.5 mg PRN Q2HR PRN PO Psychosis Last administered on 03/14/18at 11:10; Start 03/08/18 at 03:45 Acetaminophen (Tylenol) 650 mg PRN Q8HRS PRN PO PAIN / TEMP; Start 03/08/18 at 03:45; Status UNV Brimonidine Tartrate (Alphagan) 1 drop BID OU Last administered on 03/16/18at 20 :18; Start 03/08/18 at 09:00 Carbidopa/Levodopa (Sinemet 25/100) 1 tab QID PO Last administered on at 20:12; Start 03/08/18 at 09:00 Vitamin D (Vitamin D3) 1,000 unit DAILY PO Last administered on 03/16/18at 09:35 ; Start 03/08/18 at 09:00 Gabapentin (Neurontin) 100 mg TID PO Last administered on 03/16/18at 20:12; Start 03/08/18 at 09:00 Levothyroxine Sodium (Synthroid) 75 mcg DAILYAC PO Last administered on at 10:53; Start 03/08/18 at 07:30; Stop 03/08/18 at 11:19; Status DC Multi-Ingred Cream/Lotion/Oil/ Oint (Artificial Tears Eye Ointment) 1 jose a HS OU Last administered on 03/16/18at 21:00; Start 03/08/18 at 21:00 Moxifloxacin HCl (Vigamox) 1 drop QID OD Last administered on 03/16/18 20:18; Start 03/08/18 at 09:00; Stop 03/30/18 at 21:05 Nystatin (Nystop) 1 jose a PRN BID PRN TP RASH Last administered on 03/12/18 08: 01; Start 03/08/18 at 03:45 Prednisolone Acetate (Pred Forte) 1 drop DAILY OD Last administered on 10:59; Start 03/08/18 at 09:00; Stop 03/30/18 at 09:05 Senna/Docusate Sodium (Senna Plus) 2 tab DAILY PO Last administered on 09:34; Start 03/08/18 at 09:00 Apixaban (Eliquis) 5 mg BID PO Last administered on 03/16/18 20:11; Start 03/08 at 09:00 Acetaminophen/ Aspirin/Caffeine (Excedrin Migraine) 1 tab PRN Q6HRS PRN PO MIGRAINE HEADACHE Last administered on 03/16/18 17:20; Start 03/08/18 at 04:00 Atorvastatin Calcium (Lipitor) 10 mg QHS PO Last administered on 03/16/18 20: 12; Start 03/08/18 at 21:00 Artificial Tears (Artificial Tears) 1 drop QID OU Last administered on 20:19; Start 03/08/18 at 09:00 Latanoprost (Xalatan) 1 drop QHS OU Last administered on 03/16/18 20:13; Start 03/08/18 at 21:00 Polyethylene Glycol (miraLAX) 17 gm PRN Q8HRS PRN PO CONSTIPATION; Start at 09:00 Timolol Maleate (Timoptic 0.5% Oph) 1 drop BID OU Last administered on 20:18; Start 03/08/18 at 09:00 Quetiapine Fumarate (SEROquel) 50 mg DAILY PO Last administered on 03/14/18 09 :00; Start 03/08/18 at 09:00; Stop 03/14/18 at 11:08; Status DC Quetiapine Fumarate (SEROquel) 150 mg QHS PO Last administered on 03/10/18 20: 42; Start 03/08/18 at 21:00; Stop 03/11/18 at 18:40; Status DC Venlafaxine HCl (Effexor) 50 mg TID PO Last administered on 03/11/18at 14:31; Start 03/08/18 at 09:00; Stop 03/11/18 at 18:40; Status DC Acetaminophen (Tylenol) 650 mg PRN Q6HRS PRN PO PAIN / TEMP; Start 03/08/18 at 03:45 Multi-Ingredient Ointment (Analgesic [place]) 1 jose a PRN QID PRN TP MUSCLE PAIN; Start 03/08/18 at 03:45 Al Hydroxide/Mg Hydroxide (Mylanta Plus Xs) 15 ml PRN AFTMEALHC PRN PO DYSPEPSIA; Start 03/08/18 at 03:45 Magnesium Hydroxide (Milk Of Magnesia) 2,400 mg PRN QHS PRN PO CONSTIPATION Last administered on 03/16/18at 20:12; Start 03/08/18 at 03:45 Info (Anti-Coagulation Monitoring By Pharmacy) 1 each PRN DAILY PRN MC SEE COMMENTS; Start 03/08/18 at 05:00; Status Cancel Levothyroxine Sodium (Synthroid) 75 mcg DAILY06 PO Last administered on at 06:47; Start 03/09/18 at 06:00 Trazodone HCl (Desyrel) 50 mg QHS PO Last administered on 03/16/18at 20:12; Start 03/08/18 at 21:00 Trazodone HCl (Desyrel) 50 mg PRN QHS PRN PO Insomnia Last administered on 03/14at 00:39; Start 03/08/18 at 19:30 Cefpodoxime Proxetil (Vantin) 200 mg BID PO Last administered on 03/16/18at 20: 11; Start 03/09/18 at 21:00 Lactobacillus Rhamnosus (Culturelle) 1 cap BID PO Last administered on at 20:11; Start 03/10/18 at 09:00 Ropinirole HCl (Requip) 0.5 mg TID PO Last administered on 03/14/18at 09:00; Start 03/10/18 at 14:00; Stop 03/14/18 at 12:28; Status DC Divalproex Sodium (Depakote Sprinkles) 250 mg HS PO Last administered on 19:38; Start 03/11/18 at 21:00; Stop 03/14/18 at 11:08; Status DC Quetiapine Fumarate (SEROquel) 100 mg HS PO Last administered on 03/13/18at 19: 38; Start 03/11/18 at 21:00; Stop 03/14/18 at 11:08; Status DC Venlafaxine HCl (Effexor) 37.5 mg BID PO Last administered on 03/16/18at 20:12; Start 03/11/18 at 21:00; Stop 03/16/18 at 21:20; Status DC Ropinirole HCl (Requip) 1 mg TID PO Last administered on 03/16/18at 20:12; Start 03/14/18 at 14:00 Divalproex Sodium (Depakote Sprinkles) 250 mg BID PO Last administered on at 20:12; Start 03/14/18 at 21:00 Risperidone (RisperDAL) 0.25 mg DAILY PO Last administered on 03/16/18at 09:34; Start 03/14/18 at 12:00 Risperidone (RisperDAL) 0.5 mg HS PO Last administered on 03/16/18at 20:12; Start 03/14/18 at 21:00; Stop 03/16/18 at 21:20; Status DC Risperidone (RisperDAL) 0.75 mg HS PO ; Start 03/17/18 at 21:00 Venlafaxine HCl (Effexor) 37.5 mg DAILY PO ; Start 03/17/18 at 09:00 Active Scripts Active Reported Vitamin D3 (Cholecalciferol (Vitamin D3)) 1,000 Unit Tablet 1,000 Unit PO DAILY Vigamox (Moxifloxacin Hcl) 3 Ml Drops 1 Drop OD QID Venlafaxine Hcl Er (Venlafaxine Hcl) 150 Mg Cap.er.24h 150 Mg PO DAILY Timoptic (Timolol Maleate) 10 Ml Drops 1 Drop EACHEYE BID Seroquel (Quetiapine Fumarate) 50 Mg Tablet 50 Mg PO DAILY Seroquel (Quetiapine Fumarate) 100 Mg Tablet 150 Mg PO HS Senna-Docusate Sodium Tablet (Sennosides/Docusate Sodium) 1 Each Tablet 2 Tab PO DAILY Prednisolone Acetate 5 Ml Drops.susp 1 Drop OD DAILY Nystop (Nystatin) 60 Gm Powder 1 Jose A TP PRN BID PRN Artificial Tears Eye Drops (Dextran 70/Hypromellose) 15 Ml Drops 1 Drop EACHEYE QID Miralax (Polyethylene Glycol 3350) 17 Gm Powd.pack 17 Gm PO PRN Q8HRS PRN Artificial Tears Eye Oint (Mineral Oil/Petrolatum,White) 3.5 Gm Oint...g. 1 Drop OU HS Levothyroxine Sodium 75 Mcg Tablet 75 Mcg PO DAILYAC Latanoprost 2.5 Ml Drops 1 Drop EACHEYE QHS Gabapentin 100 Mg Capsule 100 Mg PO TID Excedrin Extra Strength Caplet (Aspirin/Acetaminophen/Caffeine) 1 Each Tablet 1 Tab PO PRN Q5HRS Eliquis (Apixaban) 5 Mg Tablet 5 Mg PO BID Sinemet 25-100 Mg Tablet (Carbidopa/Levodopa) 1 Each Tablet 1 Tab PO QID Brimonidine Tartrate 5 Ml Drops 1 Drop OU BID Atorvastatin Calcium 10 Mg Tablet 10 Mg PO QHS Tylenol (Acetaminophen) 325 Mg Tablet 650 Mg PO PRN Q8HRS PRN I have reviewed the current psychotropics carefully including drug interactions. Risk benefit ratio favors no change other than as noted in my dictated progress note. Diagnosis: Problems: (1) Anxiety disorder (2) Bipolar affective, mixed, sev w/ psych (3) Dementia, vascular, with delusions (4) Impulse control disorder HERMILO LEWIS MD Mar 16, 2018 23:08
[2018-03-17] MEDS: LEVOTHYROXINE 75 MCG TABLET PO SCH (05:46)
[2018-03-17 05:59] VITALS: BP 137/71
[2018-03-17] MEDS: TIMOLOL 0.5% OPHTH SOLUTION 5ML BOTTLE. OU SCH ×2 (08:43→20:47)
[2018-03-17] MEDS: BRIMONIDINE 0.2% OPHTH SOLUTION 5ML BOTTLE. OU SCH ×2 (08:43→20:47)
[2018-03-17] MEDS: POLYVINYL ALCOHOL 1.4% OPHTH SOLUTION 15ML BOTTLE. OU SCH ×4 (08:44→20:47)
[2018-03-17] MEDS: prednisoLONE ACETATE 1% OPHTH SUSPENSION 5ML BOTTLE. OD SCH ×2 (08:44→20:47)
[2018-03-17] MEDS: MOXIFLOXACIN 0.5% OPHTH SOLUTION 3ML BOTTLE. OD SCH ×4 (08:44→20:47)
[2018-03-17] MEDS: LACTOBACILLUS RHAMNOSUS GG 1 CAPSULE. PO SCH ×2 (08:44→20:45)
[2018-03-17] MEDS: DIVALPROEX 125 MG CAP.SPRINK PO SCH ×2 (08:45→20:45)
[2018-03-17] MEDS: GABAPENTIN 100 MG CAPSULE. PO SCH ×3 (08:46→20:45)
[2018-03-17] MEDS: risperiDONE 0.25 MG TABLET. PO SCH ×2 (08:46→20:53)
[2018-03-17] MEDS: SENNOSIDES/DOCUSATE 8.6/50MG TABLET. PO SCH (08:47)
[2018-03-17] MEDS: CARBIDOPA/LEVODOPA 25/100MG TABLET PO SCH ×4 (08:47→20:45)
[2018-03-17] MEDS: rOPINIRole 1 MG TABLET. PO SCH ×3 (08:48→20:45)
[2018-03-17] MEDS: CHOLECALCIFEROL (VITAMIN D3) 1,000 UNIT TABLET PO SCH (08:48)
[2018-03-17] MEDS: APIXABAN 5 MG TABLET. PO SCH ×2 (08:48→20:45)
[2018-03-17] MEDS: CEFPODOXIME PROXETIL 100 MG TABLET PO SCH ×2 (08:48→20:45)
[2018-03-17] MEDS: VENLAFAXINE 37.5 MG TABLET. PO SCH (08:49)
[2018-03-17] MEDS: ASA/APAP/CAFFEINE 250/250/65MG TABLET. PO PRN ×3 (09:02→20:56)
[2018-03-17 09:15] LABS: BASO % 1 % (0-3); EOS # 0.2 x10^3/uL (0.0-0.7); EOS % 6 % (0-3); HEMATOCRIT 43.3 % (36.0-47.0); HEMOGLOBIN 14.2 g/dL (12.0-15.5); LYMPH # 0.9 x10^3/uL (1.0-4.8); LYMPH % 25 % (24-48); MEAN CORPUSCULAR HEMOGLOBIN 31 pg (25-35); MEAN CORPUSCULAR HGB CONC 33 g/dL (31-37); MEAN CORPUSCULAR VOLUME 94 fL (79-100); MONO # 0.2 x10^3/uL (0.0-1.1); MONO % 7 % (0-9); NEUT # 2.1 x10^3uL (1.8-7.7); NEUT % 62 % (31-73); PLATELET COUNT 323 x10^3/uL (140-400); RED BLOOD COUNT 4.63 x10^6/uL (3.50-5.40); RED CELL DISTRIBUTION WIDTH 13.7 % (11.5-14.5); WHITE BLOOD COUNT 3.5 x10^3/uL (4.0-11.0)
[2018-03-17 09:31] LABS: ALBUMIN/GLOBULIN RATIO 0.8 (1.0-1.7); ALK PHOS 112 U/L (46-116); ALT (SGPT) 31 U/L (14-59); ANION GAP 1 (6-14); AST (SGOT) 36 U/L (15-37); BLOOD UREA NITROGEN 15 mg/dL (7-20); BUN/CREATININE RATIO 17 (6-20); CALCIUM 9.3 mg/dL (8.5-10.1); CARBON DIOXIDE 33 mmol/L (21-32); CHLORIDE 106 mmol/L (98-107); CREATININE 0.9 mg/dL (0.6-1.0); GFR 63.9; GLUCOSE 141 mg/dL (70-99); POTASSIUM 4.7 mmol/L (3.5-5.1); SODIUM 140 mmol/L (136-145); TOTAL BILIRUBIN 0.4 mg/dL (0.2-1.0); TOTAL PROTEIN 6.8 g/dL (6.4-8.2)
[2018-03-17 09:32] LABS: VAL ACID 29 mcg/mL (50-100)
[2018-03-17 16:07] VITALS: BP 150/92
--- NOTE | 2018-03-17 18:23 | PN ---
DATE: 03/15/2018 PSYCHIATRIC PROGRESS NOTE This is a late entry 03/15/2018, covers elements not covered in my initial note. SUBJECTIVE: I met with the patient in the evening. The patient slept 2-1/2 hours previous night. Around breakfast time she was loud, hyperverbal, agitated, threw things around her in the dining area, somewhat needy, obsessive. REVIEW OF SYSTEMS: Ambulation impaired, in wheelchair. No CV, , pulmonary, eye, ENT system symptoms on review. During the individual visit, we talked at length about my conversation with her sister on 03/14/2018 when she seems to resent her sister, unable to accept sister's concerns about the patient's mental health. REVIEW OF SYSTEMS: Ambulation impaired, in wheelchair. No CV, , pulmonary, eye, ENT system symptoms on review. MENTAL STATUS EXAM: Oriented to herself and situation. Speech coherent, rapid at times. Abstraction fair, computation impaired, language function intact. Mood and affect remain somewhat labile, grandiose at times. LABORATORY DATA: Reviewed. IMPRESSION: Bipolar 1 disorder, mixed with psychotic features. Rest unchanged. PLAN: Continue current psychotropics, observe sleep pattern, may need to add something to help with this if insomnia persists. Follow labs level on the Depakote to reach therapeutic level, may need to increase Risperdal as well. MAN Dewayne LEWIS MD DR: LIZZETH/david JOB#: [id number] / [id number]
--- NOTE | 2018-03-17 18:28 | PN ---
DATE: 03/16/2018 This is a late entry, 03/16/2018, covers the elements not covered in my initial note. SUBJECTIVE: I met with the patient in the evening. The patient slept 7 hours previous evening. Remains quite manic, hyperverbal at times as I met with her, paranoid, suspicions about her sister. REVIEW OF SYSTEMS: Ambulation impaired, in wheelchair. No CV, , pulmonary, eye system symptoms on review. MENTAL STATUS EXAM: Oriented to herself and situation. Speech coherent, rapid at times. Abstraction fair, computation impaired, language function intact, attention span short. Mood and affect remain somewhat grandiose. LABORATORY DATA: Reviewed. IMPRESSION: Bipolar 1 disorder, mixed with psychotic features; cognitive disorder, unspecified. PLAN: Reduce Effexor from 37.5 mg two times a day to 37.5 mg daily to help reduce activation worsening of bev. Increase Risperdal from 0.5 mg at bedtime to 0.75 mg at bedtime. Continue 0.25 mg in the morning. Adjust further as clinically indicated. Check labs morning of 03/17/2018, to reach therapeutic level on the Depakote. MAN Dewayne LEWIS MD DR: LIZZETH/david JOB#: [id number] / [id number]
[2018-03-17] MEDS: traZODone 50 MG TABLET. PO SCH (20:45)
[2018-03-17] MEDS: ATORVASTATIN CALCIUM 10 MG TABLET. PO SCH (20:45)
[2018-03-17] MEDS: LATANOPROST 0.005% OPHTH SOLUTION 2.5ML BOTTLE. OU SCH (20:53)
[2018-03-17] MEDS: MINERAL OIL/PETROLATUM,WHITE OPHTH OINT 3.5GM TUBE. OU SCH (20:56)
--- NOTE | 2018-03-17 21:05 | PDOC ---
Exam Note: Massimo Note: Please also refer to the separate dictated note~for this date of service dictated separately.~Patient seen individually. Discussed the patient with Nursing staff reviewed the chart.~Reviewed interim history and current functioning. Reviewed vital signs,~Labs/ Radiology~and current medications noted below. Continue current treatment with the changes noted in the dictated addendum note Assessment: Vital Signs: Vital Signs Date Time Temp Pulse Resp B/P (MAP) Pulse Ox O2 Delivery O2 Flow Rate FiO2 03/17/18 16:07 98.7 59 20 150/92 (111) 98 03/12/18 16:17 Room Air I&O Intake and Output 03/17/18 06:59 Intake Total 1820 ml Balance 1820 ml Intake Oral 1820 ml Labs: Laboratory Tests Test 03/17/18 09:08 White Blood Count 3.5 x10^3/uL (4.0-11.0) L Red Blood Count 4.63 x10^6/uL (3.50-5.40) Hemoglobin 14.2 g/dL (12.0-15.5) Hematocrit 43.3 % (36.0-47.0) Mean Corpuscular Volume 94 fL (79-100) Mean Corpuscular Hemoglobin 31 pg (25-35) Mean Corpuscular Hemoglobin Concent 33 g/dL (31-37) Red Cell Distribution Width 13.7 % (11.5-14.5) Platelet Count 323 x10^3/uL (140-400) Neutrophils (%) (Auto) 62 % (31-73) Lymphocytes (%) (Auto) 25 % (24-48) Monocytes (%) (Auto) 7 % (0-9) Eosinophils (%) (Auto) 6 % (0-3) H Basophils (%) (Auto) 1 % (0-3) Neutrophils # (Auto) 2.1 x10^3uL (1.8-7.7) Lymphocytes # (Auto) 0.9 x10^3/uL (1.0-4.8) L Monocytes # (Auto) 0.2 x10^3/uL (0.0-1.1) Eosinophils # (Auto) 0.2 x10^3/uL (0.0-0.7) Basophils # (Auto) 0.0 x10^3/uL (0.0-0.2) Sodium Level 140 mmol/L (136-145) Potassium Level 4.7 mmol/L (3.5-5.1) Chloride Level 106 mmol/L (98-107) Carbon Dioxide Level 33 mmol/L (21-32) H Anion Gap 1 (6-14) L Blood Urea Nitrogen 15 mg/dL (7-20) Creatinine 0.9 mg/dL (0.6-1.0) Estimated GFR (Cockcroft-Gault) 63.9 BUN/Creatinine Ratio 17 (6-20) Glucose Level 141 mg/dL (70-99) H Calcium Level 9.3 mg/dL (8.5-10.1) Total Bilirubin 0.4 mg/dL (0.2-1.0) Aspartate Amino Transferase (AST) 36 U/L (15-37) Alanine Aminotransferase (ALT) 31 U/L (14-59) Alkaline Phosphatase 112 U/L (46-116) Total Protein 6.8 g/dL (6.4-8.2) Albumin 3.0 g/dL (3.4-5.0) L Albumin/Globulin Ratio 0.8 (1.0-1.7) L Valproic Acid Level 29 mcg/mL (50-100) L Valproic Acid Last Dose Date 03/16/18 Valproic Acid Last Dose Time 2100 Current Medications: Meds: Current Medications Olanzapine (ZyPREXA ZYDIS) 2.5 mg PRN Q2HR PRN PO Psychosis Last administered on 03/17/18 09:42; Start 03/08/18 at 03:45 Acetaminophen (Tylenol) 650 mg PRN Q8HRS PRN PO PAIN / TEMP; Start 03/08/18 at 03:45; Status UNV Brimonidine Tartrate (Alphagan) 1 drop BID OU Last administered on 03/17/18 20 :47; Start 03/08/18 at 09:00 Carbidopa/Levodopa (Sinemet 25/100) 1 tab QID PO Last administered on 20:45; Start 03/08/18 at 09:00 Vitamin D (Vitamin D3) 1,000 unit DAILY PO Last administered on 03/17/18 08:48 ; Start 03/08/18 at 09:00 Gabapentin (Neurontin) 100 mg TID PO Last administered on 03/17/18 20:45; Start 03/08/18 at 09:00 Levothyroxine Sodium (Synthroid) 75 mcg DAILYAC PO Last administered on 10:53; Start 03/08/18 at 07:30; Stop 03/08/18 at 11:19; Status DC Multi-Ingred Cream/Lotion/Oil/ Oint (Artificial Tears Eye Ointment) 1 jose a HS OU Last administered on 03/17/18 20:56; Start 03/08/18 at 21:00 Moxifloxacin HCl (Vigamox) 1 drop QID OD Last administered on 03/17/18 20:47; Start 03/08/18 at 09:00; Stop 03/30/18 at 21:05 Nystatin (Nystop) 1 jose a PRN BID PRN TP RASH Last administered on 03/12/18 08: 01; Start 03/08/18 at 03:45 Prednisolone Acetate (Pred Forte) 1 drop DAILY OD Last administered on 20:47; Start 03/08/18 at 09:00; Stop 03/30/18 at 09:05 Senna/Docusate Sodium (Senna Plus) 2 tab DAILY PO Last administered on 08:47; Start 03/08/18 at 09:00 Apixaban (Eliquis) 5 mg BID PO Last administered on 03/17/18 20:45; Start 03/08 at 09:00 Acetaminophen/ Aspirin/Caffeine (Excedrin Migraine) 1 tab PRN Q6HRS PRN PO MIGRAINE HEADACHE Last administered on 03/17/18 16:27; Start 03/08/18 at 04:00 Atorvastatin Calcium (Lipitor) 10 mg QHS PO Last administered on 03/17/18 20: 45; Start 03/08/18 at 21:00 Artificial Tears (Artificial Tears) 1 drop QID OU Last administered on 20:47; Start 03/08/18 at 09:00 Latanoprost (Xalatan) 1 drop QHS OU Last administered on 03/17/18 20:53; Start 03/08/18 at 21:00 Polyethylene Glycol (miraLAX) 17 gm PRN Q8HRS PRN PO CONSTIPATION Last administered on 7/15/18at 05:46; Start 03/08/18 at 09:00 Timolol Maleate (Timoptic 0.5% [facility]) 1 drop BID OU Last administered on at 20:47; Start 03/08/18 at 09:00 Quetiapine Fumarate (SEROquel) 50 mg DAILY PO Last administered on 03/14/18at 09 :00; Start 03/08/18 at 09:00; Stop 03/14/18 at 11:08; Status DC Quetiapine Fumarate (SEROquel) 150 mg QHS PO Last administered on 03/10/18 20: 42; Start 03/08/18 at 21:00; Stop 03/11/18 at 18:40; Status DC Venlafaxine HCl (Effexor) 50 mg TID PO Last administered on 03/11/18at 14:31; Start 03/08/18 at 09:00; Stop 03/11/18 at 18:40; Status DC Acetaminophen (Tylenol) 650 mg PRN Q6HRS PRN PO PAIN / TEMP; Start 03/08/18 at 03:45 Multi-Ingredient Ointment (Analgesic [place]) 1 jose a PRN QID PRN TP MUSCLE PAIN; Start 03/08/18 at 03:45 Al Hydroxide/Mg Hydroxide (Mylanta Plus Xs) 15 ml PRN AFTMEALHC PRN PO DYSPEPSIA; Start 03/08/18 at 03:45 Magnesium Hydroxide (Milk Of Magnesia) 2,400 mg PRN QHS PRN PO CONSTIPATION Last administered on 03/16/18at 20:12; Start 03/08/18 at 03:45 Info (Anti-Coagulation Monitoring By Pharmacy) 1 each PRN DAILY PRN MC SEE COMMENTS; Start 03/08/18 at 05:00; Status Cancel Levothyroxine Sodium (Synthroid) 75 mcg DAILY06 PO Last administered on 05:46; Start 03/09/18 at 06:00 Trazodone HCl (Desyrel) 50 mg QHS PO Last administered on 03/17/18at 20:45; Start 03/08/18 at 21:00 Trazodone HCl (Desyrel) 50 mg PRN QHS PRN PO Insomnia Last administered on 03/14at 00:39; Start 03/08/18 at 19:30 Cefpodoxime Proxetil (Vantin) 200 mg BID PO Last administered on 03/17/18 20: 45; Start 03/09/18 at 21:00 Lactobacillus Rhamnosus (Culturelle) 1 cap BID PO Last administered on 20:45; Start 03/10/18 at 09:00 Ropinirole HCl (Requip) 0.5 mg TID PO Last administered on 03/14/18at 09:00; Start 03/10/18 at 14:00; Stop 03/14/18 at 12:28; Status DC Divalproex Sodium (Depakote Sprinkles) 250 mg HS PO Last administered on 19:38; Start 03/11/18 at 21:00; Stop 03/14/18 at 11:08; Status DC Quetiapine Fumarate (SEROquel) 100 mg HS PO Last administered on 03/13/18at 19: 38; Start 03/11/18 at 21:00; Stop 03/14/18 at 11:08; Status DC Venlafaxine HCl (Effexor) 37.5 mg BID PO Last administered on 03/16/18 20:12; Start 03/11/18 at 21:00; Stop 03/16/18 at 21:20; Status DC Ropinirole HCl (Requip) 1 mg TID PO Last administered on 03/17/18 20:45; Start 03/14/18 at 14:00 Divalproex Sodium (Depakote Sprinkles) 250 mg BID PO Last administered on at 20:45; Start 03/14/18 at 21:00 Risperidone (RisperDAL) 0.25 mg DAILY PO Last administered on 03/17/18at 08:46; Start 03/14/18 at 12:00 Risperidone (RisperDAL) 0.5 mg HS PO Last administered on 03/16/18at 20:12; Start 03/14/18 at 21:00; Stop 03/16/18 at 21:20; Status DC Risperidone (RisperDAL) 0.75 mg HS PO Last administered on 03/17/18at 20:53; Start 03/17/18 at 21:00 Venlafaxine HCl (Effexor) 37.5 mg DAILY PO Last administered on 03/17/18at 08:49 ; Start 03/17/18 at 09:00 Active Scripts Active Reported Vitamin D3 (Cholecalciferol (Vitamin D3)) 1,000 Unit Tablet 1,000 Unit PO DAILY Vigamox (Moxifloxacin Hcl) 3 Ml Drops 1 Drop OD QID Venlafaxine Hcl Er (Venlafaxine Hcl) 150 Mg Cap.er.24h 150 Mg PO DAILY Timoptic (Timolol Maleate) 10 Ml Drops 1 Drop EACHEYE BID Seroquel (Quetiapine Fumarate) 50 Mg Tablet 50 Mg PO DAILY Seroquel (Quetiapine Fumarate) 100 Mg Tablet 150 Mg PO HS Senna-Docusate Sodium Tablet (Sennosides/Docusate Sodium) 1 Each Tablet 2 Tab PO DAILY Prednisolone Acetate 5 Ml Drops.susp 1 Drop OD DAILY Nystop (Nystatin) 60 Gm Powder 1 Jose A TP PRN BID PRN Artificial Tears Eye Drops (Dextran 70/Hypromellose) 15 Ml Drops 1 Drop EACHEYE QID Miralax (Polyethylene Glycol 3350) 17 Gm Powd.pack 17 Gm PO PRN Q8HRS PRN Artificial Tears Eye Oint (Mineral Oil/Petrolatum,White) 3.5 Gm Oint...g. 1 Drop OU HS Levothyroxine Sodium 75 Mcg Tablet 75 Mcg PO DAILYAC Latanoprost 2.5 Ml Drops 1 Drop EACHEYE QHS Gabapentin 100 Mg Capsule 100 Mg PO TID Excedrin Extra Strength Caplet (Aspirin/Acetaminophen/Caffeine) 1 Each Tablet 1 Tab PO PRN Q5HRS Eliquis (Apixaban) 5 Mg Tablet 5 Mg PO BID Sinemet 25-100 Mg Tablet (Carbidopa/Levodopa) 1 Each Tablet 1 Tab PO QID Brimonidine Tartrate 5 Ml Drops 1 Drop OU BID Atorvastatin Calcium 10 Mg Tablet 10 Mg PO QHS Tylenol (Acetaminophen) 325 Mg Tablet 650 Mg PO PRN Q8HRS PRN I have reviewed the current psychotropics carefully including drug interactions. Risk benefit ratio favors no change other than as noted in my dictated progress note. Diagnosis: Problems: (1) Anxiety disorder (2) Bipolar affective, mixed, sev w/ psych (3) Dementia, vascular, with delusions (4) Impulse control disorder HERMILO LEWIS MD Mar 17, 2018 21:05
[2018-03-18 06:22] VITALS: BP 142/81
[2018-03-18] MEDS: LEVOTHYROXINE 75 MCG TABLET PO SCH (06:36)
[2018-03-18] MEDS: GABAPENTIN 100 MG CAPSULE. PO SCH ×3 (09:31→20:37)
[2018-03-18] MEDS: CARBIDOPA/LEVODOPA 25/100MG TABLET PO SCH ×4 (09:31→20:37)
[2018-03-18] MEDS: VENLAFAXINE 37.5 MG TABLET. PO SCH (09:31)
[2018-03-18] MEDS: risperiDONE 0.25 MG TABLET. PO SCH ×2 (09:31→20:37)
[2018-03-18] MEDS: rOPINIRole 1 MG TABLET. PO SCH ×3 (09:31→20:37)
[2018-03-18] MEDS: LACTOBACILLUS RHAMNOSUS GG 1 CAPSULE. PO SCH ×2 (09:31→20:37)
[2018-03-18] MEDS: APIXABAN 5 MG TABLET. PO SCH ×2 (09:32→20:37)
[2018-03-18] MEDS: CEFPODOXIME PROXETIL 100 MG TABLET PO SCH (09:32)
[2018-03-18] MEDS: CHOLECALCIFEROL (VITAMIN D3) 1,000 UNIT TABLET PO SCH (09:32)
[2018-03-18] MEDS: SENNOSIDES/DOCUSATE 8.6/50MG TABLET. PO SCH (09:32)
[2018-03-18] MEDS: DIVALPROEX 125 MG CAP.SPRINK PO SCH ×2 (09:33→20:37)
[2018-03-18] MEDS: MOXIFLOXACIN 0.5% OPHTH SOLUTION 3ML BOTTLE. OD SCH ×4 (09:38→20:34)
[2018-03-18] MEDS: TIMOLOL 0.5% OPHTH SOLUTION 5ML BOTTLE. OU SCH ×2 (09:38→20:36)
[2018-03-18] MEDS: POLYVINYL ALCOHOL 1.4% OPHTH SOLUTION 15ML BOTTLE. OU SCH ×4 (09:38→20:34)
[2018-03-18] MEDS: BRIMONIDINE 0.2% OPHTH SOLUTION 5ML BOTTLE. OU SCH ×2 (09:40→20:35)
[2018-03-18 16:09] VITALS: BP 111/72
[2018-03-18] MEDS: ASA/APAP/CAFFEINE 250/250/65MG TABLET. PO PRN (17:53)
--- NOTE | 2018-03-18 20:34 | PDOC ---
Exam Note: Massimo Note: Please also refer to the separate dictated note~for this date of service dictated separately.~Patient seen individually. Discussed the patient with Nursing staff reviewed the chart.~Reviewed interim history and current functioning. Reviewed vital signs,~Labs/ Radiology~and current medications noted below. Continue current treatment with the changes noted in the dictated addendum note Assessment: Vital Signs: Vital Signs Date Time Temp Pulse Resp B/P (MAP) Pulse Ox O2 Delivery O2 Flow Rate FiO2 03/18/18 16:09 97.9 87 18 111/72 (85) 90 03/18/18 06:22 Room Air I&O Intake and Output 03/18/18 06:59 Intake Total 1320 ml Balance 1320 ml Intake Oral 1320 ml # Bowel Movements 1 Current Medications: Meds: Current Medications Olanzapine (ZyPREXA ZYDIS) 2.5 mg PRN Q2HR PRN PO Psychosis Last administered on 03/17/18 09:42; Start 03/08/18 at 03:45 Acetaminophen (Tylenol) 650 mg PRN Q8HRS PRN PO PAIN / TEMP; Start 03/08/18 at 03:45; Status UNV Brimonidine Tartrate (Alphagan) 1 drop BID OU Last administered on 03/18/18at 09 :40; Start 03/08/18 at 09:00 Carbidopa/Levodopa (Sinemet 25/100) 1 tab QID PO Last administered on 17:42; Start 03/08/18 at 09:00 Vitamin D (Vitamin D3) 1,000 unit DAILY PO Last administered on 03/18/18at 09:32 ; Start 03/08/18 at 09:00 Gabapentin (Neurontin) 100 mg TID PO Last administered on 03/18/18 12:58; Start 03/08/18 at 09:00 Levothyroxine Sodium (Synthroid) 75 mcg DAILYAC PO Last administered on at 10:53; Start 03/08/18 at 07:30; Stop 03/08/18 at 11:19; Status DC Multi-Ingred Cream/Lotion/Oil/ Oint (Artificial Tears Eye Ointment) 1 jose a HS OU Last administered on 03/17/18at 20:56; Start 03/08/18 at 21:00 Moxifloxacin HCl (Vigamox) 1 drop QID OD Last administered on 03/18/18 17:42; Start 03/08/18 at 09:00; Stop 03/30/18 at 21:05 Nystatin (Nystop) 1 jose a PRN BID PRN TP RASH Last administered on 03/12/18 08: 01; Start 03/08/18 at 03:45 Prednisolone Acetate (Pred Forte) 1 drop DAILY OD Last administered on 20:47; Start 03/08/18 at 09:00; Stop 03/30/18 at 09:05 Senna/Docusate Sodium (Senna Plus) 2 tab DAILY PO Last administered on 09:32; Start 03/08/18 at 09:00 Apixaban (Eliquis) 5 mg BID PO Last administered on 03/18/18 09:32; Start 03/08 at 09:00 Acetaminophen/ Aspirin/Caffeine (Excedrin Migraine) 1 tab PRN Q6HRS PRN PO MIGRAINE HEADACHE Last administered on 03/18/18 17:53; Start 03/08/18 at 04:00 Atorvastatin Calcium (Lipitor) 10 mg QHS PO Last administered on 03/17/18 20: 45; Start 03/08/18 at 21:00 Artificial Tears (Artificial Tears) 1 drop QID OU Last administered on 17:42; Start 03/08/18 at 09:00 Latanoprost (Xalatan) 1 drop QHS OU Last administered on 03/17/18 20:53; Start 03/08/18 at 21:00 Polyethylene Glycol (miraLAX) 17 gm PRN Q8HRS PRN PO CONSTIPATION Last administered on 03/17/18 05:46; Start 03/08/18 at 09:00 Timolol Maleate (Timoptic 0.5% [facility]) 1 drop BID OU Last administered on 09:38; Start 03/08/18 at 09:00 Quetiapine Fumarate (SEROquel) 50 mg DAILY PO Last administered on 03/14/18at 09 :00; Start 03/08/18 at 09:00; Stop 03/14/18 at 11:08; Status DC Quetiapine Fumarate (SEROquel) 150 mg QHS PO Last administered on 03/10/18at 20: 42; Start 03/08/18 at 21:00; Stop 03/11/18 at 18:40; Status DC Venlafaxine HCl (Effexor) 50 mg TID PO Last administered on 03/11/18 14:31; Start 03/08/18 at 09:00; Stop 03/11/18 at 18:40; Status DC Acetaminophen (Tylenol) 650 mg PRN Q6HRS PRN PO PAIN / TEMP; Start 03/08/18 at 03:45 Multi-Ingredient Ointment (Analgesic [place]) 1 jose a PRN QID PRN TP MUSCLE PAIN; Start 03/08/18 at 03:45 Al Hydroxide/Mg Hydroxide (Mylanta Plus Xs) 15 ml PRN AFTMEALHC PRN PO DYSPEPSIA; Start 03/08/18 at 03:45 Magnesium Hydroxide (Milk Of Magnesia) 2,400 mg PRN QHS PRN PO CONSTIPATION Last administered on 03/16/18at 20:12; Start 03/08/18 at 03:45 Info (Anti-Coagulation Monitoring By Pharmacy) 1 each PRN DAILY PRN MC SEE COMMENTS; Start 03/08/18 at 05:00; Status Cancel Levothyroxine Sodium (Synthroid) 75 mcg DAILY06 PO Last administered on at 06:36; Start 03/09/18 at 06:00 Trazodone HCl (Desyrel) 50 mg QHS PO Last administered on 03/17/18at 20:45; Start 03/08/18 at 21:00 Trazodone HCl (Desyrel) 50 mg PRN QHS PRN PO Insomnia Last administered on 03/14at 00:39; Start 03/08/18 at 19:30 Cefpodoxime Proxetil (Vantin) 200 mg BID PO Last administered on 03/18/18 09: 32; Start 03/09/18 at 21:00; Stop 03/18/18 at 10:23; Status DC Lactobacillus Rhamnosus (Culturelle) 1 cap BID PO Last administered on at 09:31; Start 03/10/18 at 09:00 Ropinirole HCl (Requip) 0.5 mg TID PO Last administered on 03/14/18at 09:00; Start 03/10/18 at 14:00; Stop 03/14/18 at 12:28; Status DC Divalproex Sodium (Depakote Sprinkles) 250 mg HS PO Last administered on at 19:38; Start 03/11/18 at 21:00; Stop 03/14/18 at 11:08; Status DC Quetiapine Fumarate (SEROquel) 100 mg HS PO Last administered on 03/13/18 19: 38; Start 03/11/18 at 21:00; Stop 03/14/18 at 11:08; Status DC Venlafaxine HCl (Effexor) 37.5 mg BID PO Last administered on 03/16/18 20:12; Start 03/11/18 at 21:00; Stop 03/16/18 at 21:20; Status DC Ropinirole HCl (Requip) 1 mg TID PO Last administered on 03/18/18at 12:57; Start 03/14/18 at 14:00 Divalproex Sodium (Depakote Sprinkles) 250 mg BID PO Last administered on at 20:45; Start 03/14/18 at 21:00; Stop 03/17/18 at 23:52; Status DC Risperidone (RisperDAL) 0.25 mg DAILY PO Last administered on 03/18/18at 09:31; Start 03/14/18 at 12:00 Risperidone (RisperDAL) 0.5 mg HS PO Last administered on 03/16/18at 20:12; Start 03/14/18 at 21:00; Stop 03/16/18 at 21:20; Status DC Risperidone (RisperDAL) 0.75 mg HS PO Last administered on 03/17/18at 20:53; Start 03/17/18 at 21:00 Venlafaxine HCl (Effexor) 37.5 mg DAILY PO Last administered on 03/18/18at 09:31 ; Start 03/17/18 at 09:00; Stop 03/18/18 at 18:29; Status DC Divalproex Sodium (Depakote Sprinkles) 500 mg BID PO Last administered on at 09:33; Start 03/18/18 at 09:00 Benztropine Mesylate (Cogentin) 0.5 mg QHS PO ; Start 03/18/18 at 21:00 Active Scripts Active Reported Vitamin D3 (Cholecalciferol (Vitamin D3)) 1,000 Unit Tablet 1,000 Unit PO DAILY Vigamox (Moxifloxacin Hcl) 3 Ml Drops 1 Drop OD QID Venlafaxine Hcl Er (Venlafaxine Hcl) 150 Mg Cap.er.24h 150 Mg PO DAILY Timoptic (Timolol Maleate) 10 Ml Drops 1 Drop EACHEYE BID Seroquel (Quetiapine Fumarate) 50 Mg Tablet 50 Mg PO DAILY Seroquel (Quetiapine Fumarate) 100 Mg Tablet 150 Mg PO HS Senna-Docusate Sodium Tablet (Sennosides/Docusate Sodium) 1 Each Tablet 2 Tab PO DAILY Prednisolone Acetate 5 Ml Drops.susp 1 Drop OD DAILY Nystop (Nystatin) 60 Gm Powder 1 Jose A TP PRN BID PRN Artificial Tears Eye Drops (Dextran 70/Hypromellose) 15 Ml Drops 1 Drop EACHEYE QID Miralax (Polyethylene Glycol 3350) 17 Gm Powd.pack 17 Gm PO PRN Q8HRS PRN Artificial Tears Eye Oint (Mineral Oil/Petrolatum,White) 3.5 Gm Oint...g. 1 Drop OU HS Levothyroxine Sodium 75 Mcg Tablet 75 Mcg PO DAILYAC Latanoprost 2.5 Ml Drops 1 Drop EACHEYE QHS Gabapentin 100 Mg Capsule 100 Mg PO TID Excedrin Extra Strength Caplet (Aspirin/Acetaminophen/Caffeine) 1 Each Tablet 1 Tab PO PRN Q5HRS Eliquis (Apixaban) 5 Mg Tablet 5 Mg PO BID Sinemet 25-100 Mg Tablet (Carbidopa/Levodopa) 1 Each Tablet 1 Tab PO QID Brimonidine Tartrate 5 Ml Drops 1 Drop OU BID Atorvastatin Calcium 10 Mg Tablet 10 Mg PO QHS Tylenol (Acetaminophen) 325 Mg Tablet 650 Mg PO PRN Q8HRS PRN I have reviewed the current psychotropics carefully including drug interactions. Risk benefit ratio favors no change other than as noted in my dictated progress note. Diagnosis: Problems: (1) Anxiety disorder (2) Bipolar affective, mixed, sev w/ psych (3) Dementia, vascular, with delusions (4) Impulse control disorder HERMILO LEWIS MD Mar 18, 2018 20:34
[2018-03-18] MEDS: LATANOPROST 0.005% OPHTH SOLUTION 2.5ML BOTTLE. OU SCH (20:35)
[2018-03-18] MEDS: ATORVASTATIN CALCIUM 10 MG TABLET. PO SCH (20:36)
[2018-03-18] MEDS: MINERAL OIL/PETROLATUM,WHITE OPHTH OINT 3.5GM TUBE. OU SCH (20:36)
[2018-03-18] MEDS: traZODone 50 MG TABLET. PO SCH (20:37)
[2018-03-18] MEDS: BENZTROPINE MESYLATE 0.5 MG TABLET PO SCH (20:38)
--- NOTE | 2018-03-18 20:56 | PN ---
DATE: 03/17/2018 PSYCHIATRIC PROGRESS NOTE This is a late entry 03/17/2018, covers elements not covered in my initial note. SUBJECTIVE: I met with the patient in the evening of 03/17/2018, patient slept 6 hours previous evening. The patient continues to have mood lability, appears manic at times with hyperverbal, frequently asking for drinks, anxious, labile. REVIEW OF SYSTEMS: Ambulation impaired, in wheelchair. No CV, , pulmonary, eye, ENT system symptoms on review. As I met with her, she is still fixated on dislike of her sister and we addressed at some length. No CV, , pulmonary, eye system symptoms on review. Reliability varies. MENTAL STATUS EXAM: Oriented to herself and situation. Speech coherent, rapid, pressured at times. Abstraction fair, computation impaired, language function intact, attention span short. Mood and affect remain somewhat labile. LABORATORY DATA: Reviewed. IMPRESSION: Bipolar 1 disorder, manic with psychotic features; anxiety disorder, unspecified; cognitive disorder, unspecified; impulse control disorder, unspecified. PLAN: Valproic acid level subtherapeutic at 29. On Depakote 250 b.i.d. We will increase the Depakote to 500 mg b.i.d. Check CBC, CMP, valproic acid level in 3 days. Continue Risperdal 0.25 a.m., 0.75 at bedtime, Effexor 37.5 mg daily and was reduced from the higher dosage since the higher dosage was worsening her bev. Review drug interactions. HERMILO LEWIS MD DR: LIZZETH/david JOB#: [id number] / [id number]
[2018-03-19] MEDS: LEVOTHYROXINE 75 MCG TABLET PO SCH (05:47)
[2018-03-19 06:38] VITALS: BP 151/74
[2018-03-19] MEDS: TIMOLOL 0.5% OPHTH SOLUTION 5ML BOTTLE. OU SCH ×2 (08:51→21:21)
[2018-03-19] MEDS: BRIMONIDINE 0.2% OPHTH SOLUTION 5ML BOTTLE. OU SCH ×2 (08:51→21:22)
[2018-03-19] MEDS: POLYVINYL ALCOHOL 1.4% OPHTH SOLUTION 15ML BOTTLE. OU SCH ×4 (08:51→21:21)
[2018-03-19] MEDS: prednisoLONE ACETATE 1% OPHTH SUSPENSION 5ML BOTTLE. OD SCH ×2 (08:51→21:22)
[2018-03-19] MEDS: MOXIFLOXACIN 0.5% OPHTH SOLUTION 3ML BOTTLE. OD SCH ×4 (08:51→21:21)
[2018-03-19] MEDS: NYSTATIN TOPICAL POWDER 15GM BOTTLE. TP PRN (08:52)
[2018-03-19] MEDS: LACTOBACILLUS RHAMNOSUS GG 1 CAPSULE. PO SCH ×2 (08:54→21:20)
[2018-03-19] MEDS: ASA/APAP/CAFFEINE 250/250/65MG TABLET. PO PRN (08:54)
[2018-03-19] MEDS: rOPINIRole 1 MG TABLET. PO SCH ×3 (08:55→21:19)
[2018-03-19] MEDS: DIVALPROEX 125 MG CAP.SPRINK PO SCH ×2 (08:55→21:19)
[2018-03-19] MEDS: APIXABAN 5 MG TABLET. PO SCH ×2 (08:55→21:20)
[2018-03-19] MEDS: CARBIDOPA/LEVODOPA 25/100MG TABLET PO SCH ×4 (08:56→21:20)
[2018-03-19] MEDS: CHOLECALCIFEROL (VITAMIN D3) 1,000 UNIT TABLET PO SCH (08:56)
[2018-03-19] MEDS: SENNOSIDES/DOCUSATE 8.6/50MG TABLET. PO SCH (08:56)
[2018-03-19] MEDS: GABAPENTIN 100 MG CAPSULE. PO SCH ×3 (08:57→21:20)
[2018-03-19] MEDS: risperiDONE 0.25 MG TABLET. PO SCH ×2 (08:57→21:20)
[2018-03-19 18:05] VITALS: BP 130/82
--- NOTE | 2018-03-19 20:03 | PN ---
DATE: 03/18/2018 PSYCHIATRIC PROGRESS NOTE This is a late entry for 03/18/2018, covers elements not covered in my initial note of 03/18/2018. SUBJECTIVE: I met with the patient in the evening. The patient slept 7-1/4 hours previous evening. The patient remains hyperverbal, had some drooling and tremors, frequently wanting Excedrin for headaches. REVIEW OF SYSTEMS: Ambulation impaired, in wheelchair. No CV, , pulmonary, eye system symptoms on review. MENTAL STATUS EXAM: Oriented to herself and situation. Speech coherent, rapid at times. She is quite paranoid, suspicious, upset at me that I talked to her sister because she thoroughly dislikes her sister, quite paranoid about the sister, "I have already told you about this. You remember it." MENTAL STATUS EXAM: Reasonably oriented. Head bent forward. Speech coherent, rapid, difficult to understand at times. Abstraction fair, computation impaired, language function intact, attention span short. Mood and affect remain somewhat manic with marked mood lability, paranoia. LABORATORY DATA: Reviewed. IMPRESSION: Bipolar 1 disorder, mixed with psychotic features; anxiety disorder, unspecified; impulse control disorder, unspecified; cognitive disorder, unspecified. PLAN: Start Cogentin 0.5 mg p.o. at bedtime for her drooling and some EPS symptoms. Maintain Risperdal total of 1 mg a day, Depakote 500 mg b.i.d. Check CBC, CMP, valproic acid level and adjust to reach a therapeutic level. We will go ahead and stop the Effexor completely as it could be worsening her manic symptoms. MAN Dewayne LEWIS MD DR: LIZZETH/david JOB#: [id number] / [id number]
--- NOTE | 2018-03-19 21:05 | PDOC ---
Exam Note: Massimo Note: Please also refer to the separate dictated note~for this date of service dictated separately.~Patient seen individually. Discussed the patient with Nursing staff reviewed the chart.~Reviewed interim history and current functioning. Reviewed vital signs,~Labs/ Radiology~and current medications noted below. Continue current treatment with the changes noted in the dictated addendum note Assessment: Vital Signs: Vital Signs Date Time Temp Pulse Resp B/P (MAP) Pulse Ox O2 Delivery O2 Flow Rate FiO2 03/19/18 18:05 98.6 96 20 130/82 (98) 95 03/18/18 06:22 Room Air I&O Intake and Output 03/19/18 06:59 Intake Total 1440 ml Balance 1440 ml Intake Oral 1440 ml # Bowel Movements 1 Current Medications: Meds: Current Medications Olanzapine (ZyPREXA ZYDIS) 2.5 mg PRN Q2HR PRN PO Psychosis Last administered on 03/19/18at 08:52; Start 03/08/18 at 03:45 Acetaminophen (Tylenol) 650 mg PRN Q8HRS PRN PO PAIN / TEMP; Start 03/08/18 at 03:45; Status UNV Brimonidine Tartrate (Alphagan) 1 drop BID OU Last administered on 03/19/18at 08 :51; Start 03/08/18 at 09:00 Carbidopa/Levodopa (Sinemet 25/100) 1 tab QID PO Last administered on at 16:09; Start 03/08/18 at 09:00 Vitamin D (Vitamin D3) 1,000 unit DAILY PO Last administered on 03/19/18at 08:56 ; Start 03/08/18 at 09:00 Gabapentin (Neurontin) 100 mg TID PO Last administered on 03/19/18at 13:06; Start 03/08/18 at 09:00 Levothyroxine Sodium (Synthroid) 75 mcg DAILYAC PO Last administered on at 10:53; Start 03/08/18 at 07:30; Stop 03/08/18 at 11:19; Status DC Multi-Ingred Cream/Lotion/Oil/ Oint (Artificial Tears Eye Ointment) 1 jose a HS OU Last administered on 03/18/18at 20:36; Start 03/08/18 at 21:00 Moxifloxacin HCl (Vigamox) 1 drop QID OD Last administered on 03/19/18 16:08; Start 03/08/18 at 09:00; Stop 03/30/18 at 21:05 Nystatin (Nystop) 1 jose a PRN BID PRN TP RASH Last administered on 03/19/18at 08: 52; Start 03/08/18 at 03:45 Prednisolone Acetate (Pred Forte) 1 drop DAILY OD Last administered on at 08:51; Start 03/08/18 at 09:00; Stop 03/30/18 at 09:05 Senna/Docusate Sodium (Senna Plus) 2 tab DAILY PO Last administered on 08:56; Start 03/08/18 at 09:00 Apixaban (Eliquis) 5 mg BID PO Last administered on 03/19/18at 08:55; Start 03/08 at 09:00 Acetaminophen/ Aspirin/Caffeine (Excedrin Migraine) 1 tab PRN Q6HRS PRN PO MIGRAINE HEADACHE Last administered on 03/19/18 08:54; Start 03/08/18 at 04:00 Atorvastatin Calcium (Lipitor) 10 mg QHS PO Last administered on 03/18/18at 20: 36; Start 03/08/18 at 21:00 Artificial Tears (Artificial Tears) 1 drop QID OU Last administered on 16:08; Start 03/08/18 at 09:00 Latanoprost (Xalatan) 1 drop QHS OU Last administered on 03/18/18at 20:35; Start 03/08/18 at 21:00 Polyethylene Glycol (miraLAX) 17 gm PRN Q8HRS PRN PO CONSTIPATION Last administered on 03/17/18at 05:46; Start 03/08/18 at 09:00 Timolol Maleate (Timoptic 0.5% [facility]) 1 drop BID OU Last administered on at 08:51; Start 03/08/18 at 09:00 Quetiapine Fumarate (SEROquel) 50 mg DAILY PO Last administered on 03/14/18at 09 :00; Start 03/08/18 at 09:00; Stop 03/14/18 at 11:08; Status DC Quetiapine Fumarate (SEROquel) 150 mg QHS PO Last administered on 03/10/18 20: 42; Start 03/08/18 at 21:00; Stop 03/11/18 at 18:40; Status DC Venlafaxine HCl (Effexor) 50 mg TID PO Last administered on 03/11/18 14:31; Start 03/08/18 at 09:00; Stop 03/11/18 at 18:40; Status DC Acetaminophen (Tylenol) 650 mg PRN Q6HRS PRN PO PAIN / TEMP; Start 03/08/18 at 03:45 Multi-Ingredient Ointment (Analgesic [place]) 1 jose a PRN QID PRN TP MUSCLE PAIN Last administered on 03/19/18 08:52; Start 03/08/18 at 03:45 Al Hydroxide/Mg Hydroxide (Mylanta Plus Xs) 15 ml PRN AFTMEALHC PRN PO DYSPEPSIA; Start 03/08/18 at 03:45 Magnesium Hydroxide (Milk Of Magnesia) 2,400 mg PRN QHS PRN PO CONSTIPATION Last administered on 03/16/18 20:12; Start 03/08/18 at 03:45 Info (Anti-Coagulation Monitoring By Pharmacy) 1 each PRN DAILY PRN [facility] SEE COMMENTS; Start 03/08/18 at 05:00; Status Cancel Levothyroxine Sodium (Synthroid) 75 mcg DAILY06 PO Last administered on 05:47; Start 03/09/18 at 06:00 Trazodone HCl (Desyrel) 50 mg QHS PO Last administered on 03/18/18 20:37; Start 03/08/18 at 21:00 Trazodone HCl (Desyrel) 50 mg PRN QHS PRN PO Insomnia Last administered on 03/14 00:39; Start 03/08/18 at 19:30 Cefpodoxime Proxetil (Vantin) 200 mg BID PO Last administered on 03/18/18 09: 32; Start 03/09/18 at 21:00; Stop 03/18/18 at 10:23; Status DC Lactobacillus Rhamnosus (Culturelle) 1 cap BID PO Last administered on at 08:54; Start 03/10/18 at 09:00 Ropinirole HCl (Requip) 0.5 mg TID PO Last administered on 03/14/18 09:00; Start 03/10/18 at 14:00; Stop 03/14/18 at 12:28; Status DC Divalproex Sodium (Depakote Sprinkles) 250 mg HS PO Last administered on at 19:38; Start 03/11/18 at 21:00; Stop 03/14/18 at 11:08; Status DC Quetiapine Fumarate (SEROquel) 100 mg HS PO Last administered on 03/13/18 19: 38; Start 03/11/18 at 21:00; Stop 03/14/18 at 11:08; Status DC Venlafaxine HCl (Effexor) 37.5 mg BID PO Last administered on 03/16/18 20:12; Start 03/11/18 at 21:00; Stop 03/16/18 at 21:20; Status DC Ropinirole HCl (Requip) 1 mg TID PO Last administered on 03/19/18 13:06; Start 03/14/18 at 14:00 Divalproex Sodium (Depakote Sprinkles) 250 mg BID PO Last administered on 20:45; Start 03/14/18 at 21:00; Stop 03/17/18 at 23:52; Status DC Risperidone (RisperDAL) 0.25 mg DAILY PO Last administered on 03/19/18at 08:57; Start 03/14/18 at 12:00 Risperidone (RisperDAL) 0.5 mg HS PO Last administered on 03/16/18 20:12; Start 03/14/18 at 21:00; Stop 03/16/18 at 21:20; Status DC Risperidone (RisperDAL) 0.75 mg HS PO Last administered on 03/18/18at 20:37; Start 03/17/18 at 21:00 Venlafaxine HCl (Effexor) 37.5 mg DAILY PO Last administered on 03/18/18at 09:31 ; Start 03/17/18 at 09:00; Stop 03/18/18 at 18:29; Status DC Divalproex Sodium (Depakote Sprinkles) 500 mg BID PO Last administered on at 08:55; Start 03/18/18 at 09:00 Benztropine Mesylate (Cogentin) 0.5 mg QHS PO Last administered on 03/18/18at 20 :38; Start 03/18/18 at 21:00 Active Scripts Active Reported Vitamin D3 (Cholecalciferol (Vitamin D3)) 1,000 Unit Tablet 1,000 Unit PO DAILY Vigamox (Moxifloxacin Hcl) 3 Ml Drops 1 Drop OD QID Venlafaxine Hcl Er (Venlafaxine Hcl) 150 Mg Cap.er.24h 150 Mg PO DAILY Timoptic (Timolol Maleate) 10 Ml Drops 1 Drop EACHEYE BID Seroquel (Quetiapine Fumarate) 50 Mg Tablet 50 Mg PO DAILY Seroquel (Quetiapine Fumarate) 100 Mg Tablet 150 Mg PO HS Senna-Docusate Sodium Tablet (Sennosides/Docusate Sodium) 1 Each Tablet 2 Tab PO DAILY Prednisolone Acetate 5 Ml Drops.susp 1 Drop OD DAILY Nystop (Nystatin) 60 Gm Powder 1 Jose A TP PRN BID PRN Artificial Tears Eye Drops (Dextran 70/Hypromellose) 15 Ml Drops 1 Drop EACHEYE QID Miralax (Polyethylene Glycol 3350) 17 Gm Powd.pack 17 Gm PO PRN Q8HRS PRN Artificial Tears Eye Oint (Mineral Oil/Petrolatum,White) 3.5 Gm Oint...g. 1 Drop OU HS Levothyroxine Sodium 75 Mcg Tablet 75 Mcg PO DAILYAC Latanoprost 2.5 Ml Drops 1 Drop EACHEYE QHS Gabapentin 100 Mg Capsule 100 Mg PO TID Excedrin Extra Strength Caplet (Aspirin/Acetaminophen/Caffeine) 1 Each Tablet 1 Tab PO PRN Q5HRS Eliquis (Apixaban) 5 Mg Tablet 5 Mg PO BID Sinemet 25-100 Mg Tablet (Carbidopa/Levodopa) 1 Each Tablet 1 Tab PO QID Brimonidine Tartrate 5 Ml Drops 1 Drop OU BID Atorvastatin Calcium 10 Mg Tablet 10 Mg PO QHS Tylenol (Acetaminophen) 325 Mg Tablet 650 Mg PO PRN Q8HRS PRN I have reviewed the current psychotropics carefully including drug interactions. Risk benefit ratio favors no change other than as noted in my dictated progress note. Diagnosis: Problems: (1) Anxiety disorder (2) Bipolar affective, mixed, sev w/ psych (3) Dementia, vascular, with delusions (4) Impulse control disorder HERMILO LEWIS MD Mar 19, 2018 21:05
[2018-03-19] MEDS: ATORVASTATIN CALCIUM 10 MG TABLET. PO SCH (21:20)
[2018-03-19] MEDS: BENZTROPINE MESYLATE 0.5 MG TABLET PO SCH (21:20)
[2018-03-19] MEDS: traZODone 50 MG TABLET. PO SCH (21:20)
[2018-03-19] MEDS: LATANOPROST 0.005% OPHTH SOLUTION 2.5ML BOTTLE. OU SCH (21:21)
[2018-03-19] MEDS: MINERAL OIL/PETROLATUM,WHITE OPHTH OINT 3.5GM TUBE. OU SCH (21:22)
[2018-03-20] MEDS: LEVOTHYROXINE 75 MCG TABLET PO SCH (05:27)
[2018-03-20 06:02] VITALS: BP 144/90
[2018-03-20 07:38] LABS: BASO % 1 % (0-3); EOS # 0.1 x10^3/uL (0.0-0.7); EOS % 4 % (0-3); HEMATOCRIT 41.4 % (36.0-47.0); HEMOGLOBIN 14.1 g/dL (12.0-15.5); LYMPH # 1.1 x10^3/uL (1.0-4.8); LYMPH % 30 % (24-48); MEAN CORPUSCULAR HEMOGLOBIN 31 pg (25-35); MEAN CORPUSCULAR HGB CONC 34 g/dL (31-37); MEAN CORPUSCULAR VOLUME 92 fL (79-100); MONO # 0.3 x10^3/uL (0.0-1.1); MONO % 9 % (0-9); NEUT # 2.1 x10^3uL (1.8-7.7); NEUT % 56 % (31-73); PLATELET COUNT 311 x10^3/uL (140-400); RED BLOOD COUNT 4.51 x10^6/uL (3.50-5.40); RED CELL DISTRIBUTION WIDTH 13.4 % (11.5-14.5); WHITE BLOOD COUNT 3.7 x10^3/uL (4.0-11.0)
[2018-03-20 07:40] LABS: ALBUMIN/GLOBULIN RATIO 0.8 (1.0-1.7); ALK PHOS 106 U/L (46-116); ALT (SGPT) 10 U/L (14-59); ANION GAP 4 (6-14); AST (SGOT) 21 U/L (15-37); BLOOD UREA NITROGEN 22 mg/dL (7-20); BUN/CREATININE RATIO 31 (6-20); CALCIUM 9.4 mg/dL (8.5-10.1); CARBON DIOXIDE 30 mmol/L (21-32); CHLORIDE 106 mmol/L (98-107); CREATININE 0.7 mg/dL (0.6-1.0); GFR 85.4; GLUCOSE 115 mg/dL (70-99); POTASSIUM 3.9 mmol/L (3.5-5.1); SODIUM 140 mmol/L (136-145); TOTAL BILIRUBIN 0.4 mg/dL (0.2-1.0); TOTAL PROTEIN 6.8 g/dL (6.4-8.2)
[2018-03-20 07:43] LABS: VAL ACID 69 mcg/mL (50-100)
[2018-03-20] MEDS: rOPINIRole 1 MG TABLET. PO SCH ×3 (08:10→20:57)
[2018-03-20] MEDS: SENNOSIDES/DOCUSATE 8.6/50MG TABLET. PO SCH (08:10)
[2018-03-20] MEDS: LACTOBACILLUS RHAMNOSUS GG 1 CAPSULE. PO SCH ×2 (08:10→20:52)
[2018-03-20] MEDS: GABAPENTIN 100 MG CAPSULE. PO SCH ×3 (08:10→20:52)
[2018-03-20] MEDS: DIVALPROEX 125 MG CAP.SPRINK PO SCH ×2 (08:10→20:52)
[2018-03-20] MEDS: CARBIDOPA/LEVODOPA 25/100MG TABLET PO SCH ×4 (08:10→20:52)
[2018-03-20] MEDS: CHOLECALCIFEROL (VITAMIN D3) 1,000 UNIT TABLET PO SCH (08:11)
[2018-03-20] MEDS: APIXABAN 5 MG TABLET. PO SCH ×2 (08:11→20:52)
[2018-03-20] MEDS: risperiDONE 0.25 MG TABLET. PO SCH ×2 (08:11→20:52)
[2018-03-20] MEDS: BRIMONIDINE 0.2% OPHTH SOLUTION 5ML BOTTLE. OU SCH ×2 (08:14→20:52)
[2018-03-20] MEDS: MOXIFLOXACIN 0.5% OPHTH SOLUTION 3ML BOTTLE. OD SCH ×4 (08:16→20:51)
[2018-03-20] MEDS: MINERAL OIL/PETROLATUM,WHITE OPHTH OINT 3.5GM TUBE. OU SCH (08:17)
[2018-03-20] MEDS: LATANOPROST 0.005% OPHTH SOLUTION 2.5ML BOTTLE. OU SCH (08:19)
[2018-03-20] MEDS: POLYVINYL ALCOHOL 1.4% OPHTH SOLUTION 15ML BOTTLE. OU SCH ×4 (08:19→20:51)
[2018-03-20] MEDS: TIMOLOL 0.5% OPHTH SOLUTION 5ML BOTTLE. OU SCH ×2 (08:19→20:51)
[2018-03-20 15:59] VITALS: BP 120/70
[2018-03-20] MEDS: prednisoLONE ACETATE 1% OPHTH SUSPENSION 5ML BOTTLE. OD SCH (20:51)
[2018-03-20] MEDS: ATORVASTATIN CALCIUM 10 MG TABLET. PO SCH (20:52)
[2018-03-20] MEDS: traZODone 50 MG TABLET. PO SCH (20:53)
[2018-03-20] MEDS: BENZTROPINE MESYLATE 1 MG TABLET PO SCH (20:55)
--- NOTE | 2018-03-20 20:58 | PDOC ---
Exam Note: Massimo Note: Please also refer to the separate dictated note~for this date of service dictated separately.~Patient seen individually. Discussed the patient with Nursing staff reviewed the chart.~Reviewed interim history and current functioning. Reviewed vital signs,~Labs/ Radiology~and current medications noted below. Continue current treatment with the changes noted in the dictated addendum note Assessment: Vital Signs: Vital Signs Date Time Temp Pulse Resp B/P (MAP) Pulse Ox O2 Delivery O2 Flow Rate FiO2 03/20/18 15:59 98.7 100 18 120/70 (87) 96 03/18/18 06:22 Room Air I&O Intake and Output 03/20/18 06:59 Intake Total 1080 ml Balance 1080 ml Intake Oral 1080 ml Labs: Laboratory Tests Test 03/20/18 07:02 White Blood Count 3.7 x10^3/uL (4.0-11.0) L Red Blood Count 4.51 x10^6/uL (3.50-5.40) Hemoglobin 14.1 g/dL (12.0-15.5) Hematocrit 41.4 % (36.0-47.0) Mean Corpuscular Volume 92 fL (79-100) Mean Corpuscular Hemoglobin 31 pg (25-35) Mean Corpuscular Hemoglobin Concent 34 g/dL (31-37) Red Cell Distribution Width 13.4 % (11.5-14.5) Platelet Count 311 x10^3/uL (140-400) Neutrophils (%) (Auto) 56 % (31-73) Lymphocytes (%) (Auto) 30 % (24-48) Monocytes (%) (Auto) 9 % (0-9) Eosinophils (%) (Auto) 4 % (0-3) H Basophils (%) (Auto) 1 % (0-3) Neutrophils # (Auto) 2.1 x10^3uL (1.8-7.7) Lymphocytes # (Auto) 1.1 x10^3/uL (1.0-4.8) Monocytes # (Auto) 0.3 x10^3/uL (0.0-1.1) Eosinophils # (Auto) 0.1 x10^3/uL (0.0-0.7) Basophils # (Auto) 0.0 x10^3/uL (0.0-0.2) Sodium Level 140 mmol/L (136-145) Potassium Level 3.9 mmol/L (3.5-5.1) Chloride Level 106 mmol/L (98-107) Carbon Dioxide Level 30 mmol/L (21-32) Anion Gap 4 (6-14) L Blood Urea Nitrogen 22 mg/dL (7-20) H Creatinine 0.7 mg/dL (0.6-1.0) Estimated GFR (Cockcroft-Gault) 85.4 BUN/Creatinine Ratio 31 (6-20) H Glucose Level 115 mg/dL (70-99) H Calcium Level 9.4 mg/dL (8.5-10.1) Total Bilirubin 0.4 mg/dL (0.2-1.0) Aspartate Amino Transferase (AST) 21 U/L (15-37) Alanine Aminotransferase (ALT) 10 U/L (14-59) L Alkaline Phosphatase 106 U/L (46-116) Total Protein 6.8 g/dL (6.4-8.2) Albumin 3.0 g/dL (3.4-5.0) L Albumin/Globulin Ratio 0.8 (1.0-1.7) L Valproic Acid Level 69 mcg/mL (50-100) Valproic Acid Last Dose Date 03/19/18 Valproic Acid Last Dose Time 2100 Current Medications: Meds: Current Medications Olanzapine (ZyPREXA ZYDIS) 2.5 mg PRN Q2HR PRN PO Psychosis Last administered on 03/19/18 08:52; Start 03/08/18 at 03:45 Acetaminophen (Tylenol) 650 mg PRN Q8HRS PRN PO PAIN / TEMP; Start 03/08/18 at 03:45; Status UNV Brimonidine Tartrate (Alphagan) 1 drop BID OU Last administered on 03/20/18 20 :52; Start 03/08/18 at 09:00 Carbidopa/Levodopa (Sinemet 25/100) 1 tab QID PO Last administered on 20:52; Start 03/08/18 at 09:00 Vitamin D (Vitamin D3) 1,000 unit DAILY PO Last administered on 03/20/18at 08:11 ; Start 03/08/18 at 09:00 Gabapentin (Neurontin) 100 mg TID PO Last administered on 03/20/18 20:52; Start 03/08/18 at 09:00 Levothyroxine Sodium (Synthroid) 75 mcg DAILYAC PO Last administered on 10:53; Start 03/08/18 at 07:30; Stop 03/08/18 at 11:19; Status DC Multi-Ingred Cream/Lotion/Oil/ Oint (Artificial Tears Eye Ointment) 1 jose a HS OU Last administered on 03/20/18 08:17; Start 03/08/18 at 21:00 Moxifloxacin HCl (Vigamox) 1 drop QID OD Last administered on 03/20/18 20:51; Start 03/08/18 at 09:00; Stop 03/30/18 at 21:05 Nystatin (Nystop) 1 jose a PRN BID PRN TP RASH Last administered on 03/19/18 08: 52; Start 03/08/18 at 03:45 Prednisolone Acetate (Pred Forte) 1 drop DAILY OD Last administered on 20:51; Start 03/08/18 at 09:00; Stop 03/30/18 at 09:05 Senna/Docusate Sodium (Senna Plus) 2 tab DAILY PO Last administered on 08:10; Start 03/08/18 at 09:00 Apixaban (Eliquis) 5 mg BID PO Last administered on 03/20/18 20:52; Start 03/08 at 09:00 Acetaminophen/ Aspirin/Caffeine (Excedrin Migraine) 1 tab PRN Q6HRS PRN PO MIGRAINE HEADACHE Last administered on 03/19/18 08:54; Start 03/08/18 at 04:00 Atorvastatin Calcium (Lipitor) 10 mg QHS PO Last administered on 03/20/18 20: 52; Start 03/08/18 at 21:00 Artificial Tears (Artificial Tears) 1 drop QID OU Last administered on 20:51; Start 03/08/18 at 09:00 Latanoprost (Xalatan) 1 drop QHS OU Last administered on 03/20/18 08:19; Start 03/08/18 at 21:00 Polyethylene Glycol (miraLAX) 17 gm PRN Q8HRS PRN PO CONSTIPATION Last administered on 03/17/18 05:46; Start 03/08/18 at 09:00 Timolol Maleate (Timoptic 0.5% [facility]) 1 drop BID OU Last administered on 20:51; Start 03/08/18 at 09:00 Quetiapine Fumarate (SEROquel) 50 mg DAILY PO Last administered on 03/14/18 09 :00; Start 03/08/18 at 09:00; Stop 03/14/18 at 11:08; Status DC Quetiapine Fumarate (SEROquel) 150 mg QHS PO Last administered on 03/10/18 20: 42; Start 03/08/18 at 21:00; Stop 03/11/18 at 18:40; Status DC Venlafaxine HCl (Effexor) 50 mg TID PO Last administered on 03/11/18 14:31; Start 03/08/18 at 09:00; Stop 03/11/18 at 18:40; Status DC Acetaminophen (Tylenol) 650 mg PRN Q6HRS PRN PO PAIN / TEMP; Start 03/08/18 at 03:45 Multi-Ingredient Ointment (Analgesic [place]) 1 jose a PRN QID PRN TP MUSCLE PAIN Last administered on 03/19/18at 08:52; Start 03/08/18 at 03:45 Al Hydroxide/Mg Hydroxide (Mylanta Plus Xs) 15 ml PRN AFTMEALHC PRN PO DYSPEPSIA; Start 03/08/18 at 03:45 Magnesium Hydroxide (Milk Of Magnesia) 2,400 mg PRN QHS PRN PO CONSTIPATION Last administered on 03/16/18at 20:12; Start 03/08/18 at 03:45 Info (Anti-Coagulation Monitoring By Pharmacy) 1 each PRN DAILY PRN MC SEE COMMENTS; Start 03/08/18 at 05:00; Status Cancel Levothyroxine Sodium (Synthroid) 75 mcg DAILY06 PO Last administered on 05:27; Start 03/09/18 at 06:00 Trazodone HCl (Desyrel) 50 mg QHS PO Last administered on 03/20/18at 20:53; Start 03/08/18 at 21:00 Trazodone HCl (Desyrel) 50 mg PRN QHS PRN PO Insomnia Last administered on 03/14at 00:39; Start 03/08/18 at 19:30 Cefpodoxime Proxetil (Vantin) 200 mg BID PO Last administered on 03/18/18at 09: 32; Start 03/09/18 at 21:00; Stop 03/18/18 at 10:23; Status DC Lactobacillus Rhamnosus (Culturelle) 1 cap BID PO Last administered on at 20:52; Start 03/10/18 at 09:00 Ropinirole HCl (Requip) 0.5 mg TID PO Last administered on 03/14/18at 09:00; Start 03/10/18 at 14:00; Stop 03/14/18 at 12:28; Status DC Divalproex Sodium (Depakote Sprinkles) 250 mg HS PO Last administered on at 19:38; Start 03/11/18 at 21:00; Stop 03/14/18 at 11:08; Status DC Quetiapine Fumarate (SEROquel) 100 mg HS PO Last administered on 03/13/18at 19: 38; Start 03/11/18 at 21:00; Stop 03/14/18 at 11:08; Status DC Venlafaxine HCl (Effexor) 37.5 mg BID PO Last administered on 03/16/18 20:12; Start 03/11/18 at 21:00; Stop 03/16/18 at 21:20; Status DC Ropinirole HCl (Requip) 1 mg TID PO Last administered on 03/20/18at 13:12; Start 03/14/18 at 14:00 Divalproex Sodium (Depakote Sprinkles) 250 mg BID PO Last administered on at 20:45; Start 03/14/18 at 21:00; Stop 03/17/18 at 23:52; Status DC Risperidone (RisperDAL) 0.25 mg DAILY PO Last administered on 03/20/18at 08:11; Start 03/14/18 at 12:00 Risperidone (RisperDAL) 0.5 mg HS PO Last administered on 03/16/18at 20:12; Start 03/14/18 at 21:00; Stop 03/16/18 at 21:20; Status DC Risperidone (RisperDAL) 0.75 mg HS PO Last administered on 03/20/18at 20:52; Start 03/17/18 at 21:00 Venlafaxine HCl (Effexor) 37.5 mg DAILY PO Last administered on 03/18/18at 09:31 ; Start 03/17/18 at 09:00; Stop 03/18/18 at 18:29; Status DC Divalproex Sodium (Depakote Sprinkles) 500 mg BID PO Last administered on at 20:52; Start 03/18/18 at 09:00 Benztropine Mesylate (Cogentin) 0.5 mg QHS PO Last administered on 03/19/18at 21 :20; Start 03/18/18 at 21:00; Stop 03/20/18 at 18:48; Status DC Benztropine Mesylate (Cogentin) 1 mg QHS PO Last administered on 03/20/18at 20: 55; Start 03/20/18 at 21:00 Active Scripts Active Reported Vitamin D3 (Cholecalciferol (Vitamin D3)) 1,000 Unit Tablet 1,000 Unit PO DAILY Vigamox (Moxifloxacin Hcl) 3 Ml Drops 1 Drop OD QID Venlafaxine Hcl Er (Venlafaxine Hcl) 150 Mg Cap.er.24h 150 Mg PO DAILY Timoptic (Timolol Maleate) 10 Ml Drops 1 Drop EACHEYE BID Seroquel (Quetiapine Fumarate) 50 Mg Tablet 50 Mg PO DAILY Seroquel (Quetiapine Fumarate) 100 Mg Tablet 150 Mg PO HS Senna-Docusate Sodium Tablet (Sennosides/Docusate Sodium) 1 Each Tablet 2 Tab PO DAILY Prednisolone Acetate 5 Ml Drops.susp 1 Drop OD DAILY Nystop (Nystatin) 60 Gm Powder 1 Jose A TP PRN BID PRN Artificial Tears Eye Drops (Dextran 70/Hypromellose) 15 Ml Drops 1 Drop EACHEYE QID Miralax (Polyethylene Glycol 3350) 17 Gm Powd.pack 17 Gm PO PRN Q8HRS PRN Artificial Tears Eye Oint (Mineral Oil/Petrolatum,White) 3.5 Gm Oint...g. 1 Drop OU HS Levothyroxine Sodium 75 Mcg Tablet 75 Mcg PO DAILYAC Latanoprost 2.5 Ml Drops 1 Drop EACHEYE QHS Gabapentin 100 Mg Capsule 100 Mg PO TID Excedrin Extra Strength Caplet (Aspirin/Acetaminophen/Caffeine) 1 Each Tablet 1 Tab PO PRN Q5HRS Eliquis (Apixaban) 5 Mg Tablet 5 Mg PO BID Sinemet 25-100 Mg Tablet (Carbidopa/Levodopa) 1 Each Tablet 1 Tab PO QID Brimonidine Tartrate 5 Ml Drops 1 Drop OU BID Atorvastatin Calcium 10 Mg Tablet 10 Mg PO QHS Tylenol (Acetaminophen) 325 Mg Tablet 650 Mg PO PRN Q8HRS PRN I have reviewed the current psychotropics carefully including drug interactions. Risk benefit ratio favors no change other than as noted in my dictated progress note. Diagnosis: Problems: (1) Anxiety disorder (2) Bipolar affective, mixed, sev w/ psych (3) Dementia, vascular, with delusions (4) Impulse control disorder HERMILO LEWIS MD Mar 20, 2018 20:58
--- NOTE | 2018-03-20 22:30 | PN ---
DATE: 03/19/2018 PSYCHIATRIC PROGRESS NOTE This is a late entry 03/19/2018, covers elements not covered in my initial note. SUBJECTIVE: I met with the patient in the evening. The patient slept 5-1/2 hours previous evening. Morning of 03/19/2018; she was quite loud, agitated with marked mood lability, swearing, yelling, making sexual comments to female nursing staff. She is a little better later in the day. REVIEW OF SYSTEMS: Ambulation impaired, in wheelchair. No CV, , pulmonary, eye, ENT system symptoms on review. MENTAL STATUS EXAM: Oriented to herself and situation. Speech coherent, rapid at times. Abstraction fair, . She is extremely paranoid of her sister, talked about this at some length. No active suicidal ideation. LABORATORY DATA: Reviewed. IMPRESSION: Unchanged from initial note. PLAN: Continue current psychotropics. Await valproic acid level, adjust to reach therapeutic level. Rest unchanged from initial note. HERMILO LEWIS MD DR: LIZZETH/david JOB#: [id number] / [id number]
[2018-03-21] MEDS: LEVOTHYROXINE 75 MCG TABLET PO SCH (05:42)
[2018-03-21 05:47] VITALS: BP 140/86
[2018-03-21] MEDS: CHOLECALCIFEROL (VITAMIN D3) 1,000 UNIT TABLET PO SCH (08:24)
[2018-03-21] MEDS: CARBIDOPA/LEVODOPA 25/100MG TABLET PO SCH ×4 (08:24→21:24)
[2018-03-21] MEDS: DIVALPROEX 125 MG CAP.SPRINK PO SCH ×2 (08:24→21:24)
[2018-03-21] MEDS: APIXABAN 5 MG TABLET. PO SCH ×2 (08:24→21:24)
[2018-03-21] MEDS: rOPINIRole 1 MG TABLET. PO SCH ×3 (08:24→21:24)
[2018-03-21] MEDS: GABAPENTIN 100 MG CAPSULE. PO SCH ×3 (08:24→21:24)
[2018-03-21] MEDS: LACTOBACILLUS RHAMNOSUS GG 1 CAPSULE. PO SCH ×2 (08:24→21:24)
[2018-03-21] MEDS: risperiDONE 0.25 MG TABLET. PO SCH ×2 (08:25→21:25)
[2018-03-21] MEDS: SENNOSIDES/DOCUSATE 8.6/50MG TABLET. PO SCH (08:25)
[2018-03-21] MEDS: prednisoLONE ACETATE 1% OPHTH SUSPENSION 5ML BOTTLE. OD SCH (08:26)
[2018-03-21] MEDS: MOXIFLOXACIN 0.5% OPHTH SOLUTION 3ML BOTTLE. OD SCH ×4 (08:26→21:27)
[2018-03-21] MEDS: POLYVINYL ALCOHOL 1.4% OPHTH SOLUTION 15ML BOTTLE. OU SCH ×4 (08:26→21:28)
[2018-03-21] MEDS: BRIMONIDINE 0.2% OPHTH SOLUTION 5ML BOTTLE. OU SCH ×2 (08:26→21:28)
[2018-03-21] MEDS: TIMOLOL 0.5% OPHTH SOLUTION 5ML BOTTLE. OU SCH ×2 (08:27→21:28)
[2018-03-21] MEDS: ASA/APAP/CAFFEINE 250/250/65MG TABLET. PO PRN ×2 (09:41→18:45)
[2018-03-21 13:27] VITALS: BP 137/86
[2018-03-21] MEDS: ACETAMINOPHEN 325 MG TABLET PO PRN (14:20)
--- NOTE | 2018-03-21 15:27 | RAD ---
CT HEAD INDICATION: FELL TODAY HIT HEAD, BUMP ABOVE RT EYE COMPARISON: None Available. TECHNIQUE: 5 mm contiguous axial images were obtained from the skull base to the vertex in both bone and soft tissue algorithm. Exposure: One or more of the following individualized dose reduction techniques were utilized for this examination: 1. Automated exposure control 2. Adjustment of the mA and/or kV according to patient size 3. Use of iterative reconstruction technique FINDINGS: Mild bilateral periventricular white matter hypodensities likely chronic small vessel ischemic disease. Examination is limited due to mild motion artifact. There is a small contusion/hematoma identified in the right frontal forehead region likely soft tissue injury. No evidence of acute intracranial hemorrhage. No extra-axial fluid collections. No mass effect or midline shift. Ventricular size is appropriate. Basal cisterns are patent. No fractures identified.Sharif-white differentiation is preserved.Globes and orbits are within normal limits. Paranasal sinuses and mastoid air cells are clear. IMPRESSION: 1. No acute intracranial findings. 2. Small contusion/hematoma identified in the right forehead region likely soft tissue injury. Electronically signed by: Arthur Quezada MD (03/21/2018 3:23 PM) [facility]
[2018-03-21 16:25] VITALS: BP 134/82
--- NOTE | 2018-03-21 20:50 | PDOC ---
Exam Note: Massimo Note: Please also refer to the separate dictated note~for this date of service dictated separately.~Patient seen individually. Discussed the patient with Nursing staff reviewed the chart.~Reviewed interim history and current functioning. Reviewed vital signs,~Labs/ Radiology~and current medications noted below. Continue current treatment with the changes noted in the dictated addendum note Assessment: Vital Signs: Vital Signs Date Time Temp Pulse Resp B/P (MAP) Pulse Ox O2 Delivery O2 Flow Rate FiO2 03/21/18 16:25 97.3 75 16 134/82 (99) 98 Room Air I&O Intake and Output 03/21/18 06:59 Intake Total 700 ml Balance 700 ml Intake Oral 700 ml Current Medications: Meds: Current Medications Olanzapine (ZyPREXA ZYDIS) 2.5 mg PRN Q2HR PRN PO Psychosis Last administered on 03/19/18 08:52; Start 03/08/18 at 03:45 Acetaminophen (Tylenol) 650 mg PRN Q8HRS PRN PO PAIN / TEMP; Start 03/08/18 at 03:45; Status UNV Brimonidine Tartrate (Alphagan) 1 drop BID OU Last administered on 03/21/18 08 :26; Start 03/08/18 at 09:00 Carbidopa/Levodopa (Sinemet 25/100) 1 tab QID PO Last administered on 18:39; Start 03/08/18 at 09:00 Vitamin D (Vitamin D3) 1,000 unit DAILY PO Last administered on 03/21/18at 08:24 ; Start 03/08/18 at 09:00 Gabapentin (Neurontin) 100 mg TID PO Last administered on 03/21/18at 14:15; Start 03/08/18 at 09:00 Levothyroxine Sodium (Synthroid) 75 mcg DAILYAC PO Last administered on at 10:53; Start 03/08/18 at 07:30; Stop 03/08/18 at 11:19; Status DC Multi-Ingred Cream/Lotion/Oil/ Oint (Artificial Tears Eye Ointment) 1 jose a HS OU Last administered on 03/20/18at 08:17; Start 03/08/18 at 21:00 Moxifloxacin HCl (Vigamox) 1 drop QID OD Last administered on 03/21/18at 18:39; Start 03/08/18 at 09:00; Stop 03/30/18 at 21:05 Nystatin (Nystop) 1 jose a PRN BID PRN TP RASH Last administered on 03/19/18 08: 52; Start 03/08/18 at 03:45 Prednisolone Acetate (Pred Forte) 1 drop DAILY OD Last administered on 08:26; Start 03/08/18 at 09:00; Stop 03/30/18 at 09:05 Senna/Docusate Sodium (Senna Plus) 2 tab DAILY PO Last administered on 08:25; Start 03/08/18 at 09:00 Apixaban (Eliquis) 5 mg BID PO Last administered on 03/21/18 08:24; Start 03/08 at 09:00 Acetaminophen/ Aspirin/Caffeine (Excedrin Migraine) 1 tab PRN Q6HRS PRN PO MIGRAINE HEADACHE Last administered on 03/21/18 18:45; Start 03/08/18 at 04:00 Atorvastatin Calcium (Lipitor) 10 mg QHS PO Last administered on 03/20/18 20: 52; Start 03/08/18 at 21:00 Artificial Tears (Artificial Tears) 1 drop QID OU Last administered on 18:39; Start 03/08/18 at 09:00 Latanoprost (Xalatan) 1 drop QHS OU Last administered on 03/20/18 08:19; Start 03/08/18 at 21:00 Polyethylene Glycol (miraLAX) 17 gm PRN Q8HRS PRN PO CONSTIPATION Last administered on 03/17/18 05:46; Start 03/08/18 at 09:00 Timolol Maleate (Timoptic 0.5% [facility]) 1 drop BID OU Last administered on 08:27; Start 03/08/18 at 09:00 Quetiapine Fumarate (SEROquel) 50 mg DAILY PO Last administered on 03/14/18 09 :00; Start 03/08/18 at 09:00; Stop 03/14/18 at 11:08; Status DC Quetiapine Fumarate (SEROquel) 150 mg QHS PO Last administered on 03/10/18 20: 42; Start 03/08/18 at 21:00; Stop 03/11/18 at 18:40; Status DC Venlafaxine HCl (Effexor) 50 mg TID PO Last administered on 03/11/18 14:31; Start 03/08/18 at 09:00; Stop 03/11/18 at 18:40; Status DC Acetaminophen (Tylenol) 650 mg PRN Q6HRS PRN PO PAIN / TEMP Last administered on 03/21/18at 14:20; Start 03/08/18 at 03:45 Multi-Ingredient Ointment (Analgesic [place]) 1 jose a PRN QID PRN TP MUSCLE PAIN Last administered on 03/19/18 08:52; Start 03/08/18 at 03:45 Al Hydroxide/Mg Hydroxide (Mylanta Plus Xs) 15 ml PRN AFTMEALHC PRN PO DYSPEPSIA; Start 03/08/18 at 03:45 Magnesium Hydroxide (Milk Of Magnesia) 2,400 mg PRN QHS PRN PO CONSTIPATION Last administered on 03/16/18 20:12; Start 03/08/18 at 03:45 Info (Anti-Coagulation Monitoring By Pharmacy) 1 each PRN DAILY PRN [facility] SEE COMMENTS; Start 03/08/18 at 05:00; Status Cancel Levothyroxine Sodium (Synthroid) 75 mcg DAILY06 PO Last administered on 05:42; Start 03/09/18 at 06:00 Trazodone HCl (Desyrel) 50 mg QHS PO Last administered on 03/20/18at 20:53; Start 03/08/18 at 21:00 Trazodone HCl (Desyrel) 50 mg PRN QHS PRN PO Insomnia Last administered on 03/14at 00:39; Start 03/08/18 at 19:30 Cefpodoxime Proxetil (Vantin) 200 mg BID PO Last administered on 03/18/18at 09: 32; Start 03/09/18 at 21:00; Stop 03/18/18 at 10:23; Status DC Lactobacillus Rhamnosus (Culturelle) 1 cap BID PO Last administered on at 08:24; Start 03/10/18 at 09:00 Ropinirole HCl (Requip) 0.5 mg TID PO Last administered on 03/14/18 09:00; Start 03/10/18 at 14:00; Stop 03/14/18 at 12:28; Status DC Divalproex Sodium (Depakote Sprinkles) 250 mg HS PO Last administered on at 19:38; Start 03/11/18 at 21:00; Stop 03/14/18 at 11:08; Status DC Quetiapine Fumarate (SEROquel) 100 mg HS PO Last administered on 03/13/18 19: 38; Start 03/11/18 at 21:00; Stop 03/14/18 at 11:08; Status DC Venlafaxine HCl (Effexor) 37.5 mg BID PO Last administered on 03/16/18 20:12; Start 03/11/18 at 21:00; Stop 03/16/18 at 21:20; Status DC Ropinirole HCl (Requip) 1 mg TID PO Last administered on 03/21/18at 14:15; Start 03/14/18 at 14:00 Divalproex Sodium (Depakote Sprinkles) 250 mg BID PO Last administered on at 20:45; Start 03/14/18 at 21:00; Stop 03/17/18 at 23:52; Status DC Risperidone (RisperDAL) 0.25 mg DAILY PO Last administered on 03/21/18at 08:25; Start 03/14/18 at 12:00 Risperidone (RisperDAL) 0.5 mg HS PO Last administered on 03/16/18at 20:12; Start 03/14/18 at 21:00; Stop 03/16/18 at 21:20; Status DC Risperidone (RisperDAL) 0.75 mg HS PO Last administered on 03/20/18at 20:52; Start 03/17/18 at 21:00 Venlafaxine HCl (Effexor) 37.5 mg DAILY PO Last administered on 03/18/18at 09:31 ; Start 03/17/18 at 09:00; Stop 03/18/18 at 18:29; Status DC Divalproex Sodium (Depakote Sprinkles) 500 mg BID PO Last administered on at 08:24; Start 03/18/18 at 09:00 Benztropine Mesylate (Cogentin) 0.5 mg QHS PO Last administered on 03/19/18at 21 :20; Start 03/18/18 at 21:00; Stop 03/20/18 at 18:48; Status DC Benztropine Mesylate (Cogentin) 1 mg QHS PO Last administered on 03/20/18at 20: 55; Start 03/20/18 at 21:00 Active Scripts Active Reported Vitamin D3 (Cholecalciferol (Vitamin D3)) 1,000 Unit Tablet 1,000 Unit PO DAILY Vigamox (Moxifloxacin Hcl) 3 Ml Drops 1 Drop OD QID Venlafaxine Hcl Er (Venlafaxine Hcl) 150 Mg Cap.er.24h 150 Mg PO DAILY Timoptic (Timolol Maleate) 10 Ml Drops 1 Drop EACHEYE BID Seroquel (Quetiapine Fumarate) 50 Mg Tablet 50 Mg PO DAILY Seroquel (Quetiapine Fumarate) 100 Mg Tablet 150 Mg PO HS Senna-Docusate Sodium Tablet (Sennosides/Docusate Sodium) 1 Each Tablet 2 Tab PO DAILY Prednisolone Acetate 5 Ml Drops.susp 1 Drop OD DAILY Nystop (Nystatin) 60 Gm Powder 1 Jose A TP PRN BID PRN Artificial Tears Eye Drops (Dextran 70/Hypromellose) 15 Ml Drops 1 Drop EACHEYE QID Miralax (Polyethylene Glycol 3350) 17 Gm Powd.pack 17 Gm PO PRN Q8HRS PRN Artificial Tears Eye Oint (Mineral Oil/Petrolatum,White) 3.5 Gm Oint...g. 1 Drop OU HS Levothyroxine Sodium 75 Mcg Tablet 75 Mcg PO DAILYAC Latanoprost 2.5 Ml Drops 1 Drop EACHEYE QHS Gabapentin 100 Mg Capsule 100 Mg PO TID Excedrin Extra Strength Caplet (Aspirin/Acetaminophen/Caffeine) 1 Each Tablet 1 Tab PO PRN Q5HRS Eliquis (Apixaban) 5 Mg Tablet 5 Mg PO BID Sinemet 25-100 Mg Tablet (Carbidopa/Levodopa) 1 Each Tablet 1 Tab PO QID Brimonidine Tartrate 5 Ml Drops 1 Drop OU BID Atorvastatin Calcium 10 Mg Tablet 10 Mg PO QHS Tylenol (Acetaminophen) 325 Mg Tablet 650 Mg PO PRN Q8HRS PRN I have reviewed the current psychotropics carefully including drug interactions. Risk benefit ratio favors no change other than as noted in my dictated progress note. Diagnosis: Problems: (1) Anxiety disorder (2) Bipolar affective, mixed, sev w/ psych (3) Dementia, vascular, with delusions (4) Impulse control disorder HERMILO LEWIS MD Mar 21, 2018 20:50
[2018-03-21] MEDS: BENZTROPINE MESYLATE 1 MG TABLET PO SCH (21:24)
[2018-03-21] MEDS: ATORVASTATIN CALCIUM 10 MG TABLET. PO SCH (21:24)
[2018-03-21] MEDS: traZODone 50 MG TABLET. PO SCH (21:24)
[2018-03-21] MEDS: MINERAL OIL/PETROLATUM,WHITE OPHTH OINT 3.5GM TUBE. OU SCH (21:27)
[2018-03-21] MEDS: LATANOPROST 0.005% OPHTH SOLUTION 2.5ML BOTTLE. OU SCH (21:27)
[2018-03-22] MEDS: LEVOTHYROXINE 75 MCG TABLET PO SCH (05:24)
[2018-03-22] MEDS: ASA/APAP/CAFFEINE 250/250/65MG TABLET. PO PRN ×2 (06:09→17:43)
[2018-03-22 06:35] VITALS: BP 128/76
[2018-03-22] MEDS: APIXABAN 5 MG TABLET. PO SCH ×2 (10:11→20:06)
[2018-03-22] MEDS: GABAPENTIN 100 MG CAPSULE. PO SCH ×3 (10:11→20:07)
[2018-03-22] MEDS: rOPINIRole 1 MG TABLET. PO SCH ×3 (10:11→20:07)
[2018-03-22] MEDS: risperiDONE 0.25 MG TABLET. PO SCH ×2 (10:11→20:07)
[2018-03-22] MEDS: DIVALPROEX 125 MG CAP.SPRINK PO SCH ×2 (10:11→20:06)
[2018-03-22] MEDS: CARBIDOPA/LEVODOPA 25/100MG TABLET PO SCH ×4 (10:12→20:06)
[2018-03-22] MEDS: SENNOSIDES/DOCUSATE 8.6/50MG TABLET. PO SCH (10:12)
[2018-03-22] MEDS: LACTOBACILLUS RHAMNOSUS GG 1 CAPSULE. PO SCH ×2 (10:12→20:06)
[2018-03-22] MEDS: MOXIFLOXACIN 0.5% OPHTH SOLUTION 3ML BOTTLE. OD SCH ×4 (10:12→20:08)
[2018-03-22] MEDS: CHOLECALCIFEROL (VITAMIN D3) 1,000 UNIT TABLET PO SCH (10:12)
[2018-03-22] MEDS: LATANOPROST 0.005% OPHTH SOLUTION 2.5ML BOTTLE. OU SCH ×2 (10:13→20:10)
[2018-03-22] MEDS: BRIMONIDINE 0.2% OPHTH SOLUTION 5ML BOTTLE. OU SCH ×2 (10:13→20:08)
[2018-03-22] MEDS: prednisoLONE ACETATE 1% OPHTH SUSPENSION 5ML BOTTLE. OD SCH (10:13)
[2018-03-22] MEDS: TIMOLOL 0.5% OPHTH SOLUTION 5ML BOTTLE. OU SCH ×2 (10:13→20:08)
[2018-03-22] MEDS: POLYVINYL ALCOHOL 1.4% OPHTH SOLUTION 15ML BOTTLE. OU SCH ×4 (10:18→20:08)
[2018-03-22 16:02] VITALS: BP 151/85
[2018-03-22] MEDS: traZODone 50 MG TABLET. PO SCH (20:07)
[2018-03-22] MEDS: BENZTROPINE MESYLATE 1 MG TABLET PO SCH (20:07)
[2018-03-22] MEDS: ATORVASTATIN CALCIUM 10 MG TABLET. PO SCH (20:07)
[2018-03-22] MEDS: MINERAL OIL/PETROLATUM,WHITE OPHTH OINT 3.5GM TUBE. OU SCH (20:08)
--- NOTE | 2018-03-22 20:57 | PDOC ---
Exam Note: Massimo Note: Please also refer to the separate dictated note~for this date of service dictated separately.~Patient seen individually. Discussed the patient with Nursing staff reviewed the chart.~Reviewed interim history and current functioning. Reviewed vital signs,~Labs/ Radiology~and current medications noted below. Continue current treatment with the changes noted in the dictated addendum note Assessment: Vital Signs: Vital Signs Date Time Temp Pulse Resp B/P (MAP) Pulse Ox O2 Delivery O2 Flow Rate FiO2 03/22/18 16:02 98.3 103 18 151/85 (107) 94 03/21/18 16:25 Room Air I&O Intake and Output 03/22/18 07:00 Intake Total 300 ml Balance 300 ml Intake Oral 300 ml Current Medications: Meds: Current Medications Olanzapine (ZyPREXA ZYDIS) 2.5 mg PRN Q2HR PRN PO Psychosis Last administered on 03/19/18 08:52; Start 03/08/18 at 03:45 Acetaminophen (Tylenol) 650 mg PRN Q8HRS PRN PO PAIN / TEMP; Start 03/08/18 at 03:45; Status UNV Brimonidine Tartrate (Alphagan) 1 drop BID OU Last administered on 03/22/18at 20 :08; Start 03/08/18 at 09:00 Carbidopa/Levodopa (Sinemet 25/100) 1 tab QID PO Last administered on at 20:06; Start 03/08/18 at 09:00 Vitamin D (Vitamin D3) 1,000 unit DAILY PO Last administered on 03/22/18at 10:12 ; Start 03/08/18 at 09:00 Gabapentin (Neurontin) 100 mg TID PO Last administered on 03/22/18at 20:07; Start 03/08/18 at 09:00 Levothyroxine Sodium (Synthroid) 75 mcg DAILYAC PO Last administered on at 10:53; Start 03/08/18 at 07:30; Stop 03/08/18 at 11:19; Status DC Multi-Ingred Cream/Lotion/Oil/ Oint (Artificial Tears Eye Ointment) 1 jose a HS OU Last administered on 03/22/18at 20:08; Start 03/08/18 at 21:00 Moxifloxacin HCl (Vigamox) 1 drop QID OD Last administered on 03/22/18 20:08; Start 03/08/18 at 09:00; Stop 03/30/18 at 21:05 Nystatin (Nystop) 1 jose a PRN BID PRN TP RASH Last administered on 03/19/18 08: 52; Start 03/08/18 at 03:45 Prednisolone Acetate (Pred Forte) 1 drop DAILY OD Last administered on 10:13; Start 03/08/18 at 09:00; Stop 03/30/18 at 09:05 Senna/Docusate Sodium (Senna Plus) 2 tab DAILY PO Last administered on 10:12; Start 03/08/18 at 09:00 Apixaban (Eliquis) 5 mg BID PO Last administered on 03/22/18 20:06; Start 03/08 at 09:00 Acetaminophen/ Aspirin/Caffeine (Excedrin Migraine) 1 tab PRN Q6HRS PRN PO MIGRAINE HEADACHE Last administered on 03/22/18 17:43; Start 03/08/18 at 04:00 Atorvastatin Calcium (Lipitor) 10 mg QHS PO Last administered on 03/22/18 20: 07; Start 03/08/18 at 21:00 Artificial Tears (Artificial Tears) 1 drop QID OU Last administered on 20:08; Start 03/08/18 at 09:00 Latanoprost (Xalatan) 1 drop QHS OU Last administered on 03/21/18 21:27; Start 03/08/18 at 21:00 Polyethylene Glycol (miraLAX) 17 gm PRN Q8HRS PRN PO CONSTIPATION Last administered on 03/17/18 05:46; Start 03/08/18 at 09:00 Timolol Maleate (Timoptic 0.5% [facility]) 1 drop BID OU Last administered on 20:08; Start 03/08/18 at 09:00 Quetiapine Fumarate (SEROquel) 50 mg DAILY PO Last administered on 03/14/18 09 :00; Start 03/08/18 at 09:00; Stop 03/14/18 at 11:08; Status DC Quetiapine Fumarate (SEROquel) 150 mg QHS PO Last administered on 03/10/18 20: 42; Start 03/08/18 at 21:00; Stop 03/11/18 at 18:40; Status DC Venlafaxine HCl (Effexor) 50 mg TID PO Last administered on 03/11/18 14:31; Start 03/08/18 at 09:00; Stop 03/11/18 at 18:40; Status DC Acetaminophen (Tylenol) 650 mg PRN Q6HRS PRN PO PAIN / TEMP Last administered on 03/21/18at 14:20; Start 03/08/18 at 03:45 Multi-Ingredient Ointment (Analgesic [place]) 1 jose a PRN QID PRN TP MUSCLE PAIN Last administered on 03/19/18 08:52; Start 03/08/18 at 03:45 Al Hydroxide/Mg Hydroxide (Mylanta Plus Xs) 15 ml PRN AFTMEALHC PRN PO DYSPEPSIA; Start 03/08/18 at 03:45 Magnesium Hydroxide (Milk Of Magnesia) 2,400 mg PRN QHS PRN PO CONSTIPATION Last administered on 03/16/18at 20:12; Start 03/08/18 at 03:45 Info (Anti-Coagulation Monitoring By Pharmacy) 1 each PRN DAILY PRN MC SEE COMMENTS; Start 03/08/18 at 05:00; Status Cancel Levothyroxine Sodium (Synthroid) 75 mcg DAILY06 PO Last administered on at 05:24; Start 03/09/18 at 06:00 Trazodone HCl (Desyrel) 50 mg QHS PO Last administered on 03/22/18at 20:07; Start 03/08/18 at 21:00 Trazodone HCl (Desyrel) 50 mg PRN QHS PRN PO Insomnia Last administered on 03/14at 00:39; Start 03/08/18 at 19:30 Cefpodoxime Proxetil (Vantin) 200 mg BID PO Last administered on 03/18/18at 09: 32; Start 03/09/18 at 21:00; Stop 03/18/18 at 10:23; Status DC Lactobacillus Rhamnosus (Culturelle) 1 cap BID PO Last administered on at 20:06; Start 03/10/18 at 09:00 Ropinirole HCl (Requip) 0.5 mg TID PO Last administered on 03/14/18 09:00; Start 03/10/18 at 14:00; Stop 03/14/18 at 12:28; Status DC Divalproex Sodium (Depakote Sprinkles) 250 mg HS PO Last administered on at 19:38; Start 03/11/18 at 21:00; Stop 03/14/18 at 11:08; Status DC Quetiapine Fumarate (SEROquel) 100 mg HS PO Last administered on 03/13/18 19: 38; Start 03/11/18 at 21:00; Stop 03/14/18 at 11:08; Status DC Venlafaxine HCl (Effexor) 37.5 mg BID PO Last administered on 03/16/18 20:12; Start 03/11/18 at 21:00; Stop 03/16/18 at 21:20; Status DC Ropinirole HCl (Requip) 1 mg TID PO Last administered on 03/22/18at 20:07; Start 03/14/18 at 14:00 Divalproex Sodium (Depakote Sprinkles) 250 mg BID PO Last administered on at 20:45; Start 03/14/18 at 21:00; Stop 03/17/18 at 23:52; Status DC Risperidone (RisperDAL) 0.25 mg DAILY PO Last administered on 03/22/18at 10:11; Start 03/14/18 at 12:00 Risperidone (RisperDAL) 0.5 mg HS PO Last administered on 03/16/18at 20:12; Start 03/14/18 at 21:00; Stop 03/16/18 at 21:20; Status DC Risperidone (RisperDAL) 0.75 mg HS PO Last administered on 03/22/18at 20:07; Start 03/17/18 at 21:00 Venlafaxine HCl (Effexor) 37.5 mg DAILY PO Last administered on 03/18/18at 09:31 ; Start 03/17/18 at 09:00; Stop 03/18/18 at 18:29; Status DC Divalproex Sodium (Depakote Sprinkles) 500 mg BID PO Last administered on at 20:06; Start 03/18/18 at 09:00 Benztropine Mesylate (Cogentin) 0.5 mg QHS PO Last administered on 03/19/18at 21 :20; Start 03/18/18 at 21:00; Stop 03/20/18 at 18:48; Status DC Benztropine Mesylate (Cogentin) 1 mg QHS PO Last administered on 03/22/18at 20: 07; Start 03/20/18 at 21:00 Active Scripts Active Reported Vitamin D3 (Cholecalciferol (Vitamin D3)) 1,000 Unit Tablet 1,000 Unit PO DAILY Vigamox (Moxifloxacin Hcl) 3 Ml Drops 1 Drop OD QID Venlafaxine Hcl Er (Venlafaxine Hcl) 150 Mg Cap.er.24h 150 Mg PO DAILY Timoptic (Timolol Maleate) 10 Ml Drops 1 Drop EACHEYE BID Seroquel (Quetiapine Fumarate) 50 Mg Tablet 50 Mg PO DAILY Seroquel (Quetiapine Fumarate) 100 Mg Tablet 150 Mg PO HS Senna-Docusate Sodium Tablet (Sennosides/Docusate Sodium) 1 Each Tablet 2 Tab PO DAILY Prednisolone Acetate 5 Ml Drops.susp 1 Drop OD DAILY Nystop (Nystatin) 60 Gm Powder 1 Jose A TP PRN BID PRN Artificial Tears Eye Drops (Dextran 70/Hypromellose) 15 Ml Drops 1 Drop EACHEYE QID Miralax (Polyethylene Glycol 3350) 17 Gm Powd.pack 17 Gm PO PRN Q8HRS PRN Artificial Tears Eye Oint (Mineral Oil/Petrolatum,White) 3.5 Gm Oint...g. 1 Drop OU HS Levothyroxine Sodium 75 Mcg Tablet 75 Mcg PO DAILYAC Latanoprost 2.5 Ml Drops 1 Drop EACHEYE QHS Gabapentin 100 Mg Capsule 100 Mg PO TID Excedrin Extra Strength Caplet (Aspirin/Acetaminophen/Caffeine) 1 Each Tablet 1 Tab PO PRN Q5HRS Eliquis (Apixaban) 5 Mg Tablet 5 Mg PO BID Sinemet 25-100 Mg Tablet (Carbidopa/Levodopa) 1 Each Tablet 1 Tab PO QID Brimonidine Tartrate 5 Ml Drops 1 Drop OU BID Atorvastatin Calcium 10 Mg Tablet 10 Mg PO QHS Tylenol (Acetaminophen) 325 Mg Tablet 650 Mg PO PRN Q8HRS PRN I have reviewed the current psychotropics carefully including drug interactions. Risk benefit ratio favors no change other than as noted in my dictated progress note. Diagnosis: Problems: (1) Anxiety disorder (2) Bipolar affective, mixed, sev w/ psych (3) Dementia, vascular, with delusions (4) Impulse control disorder HERMILO LEWIS MD Mar 22, 2018 20:57
--- NOTE | 2018-03-23 00:21 | PN ---
DATE: 03/20/2018 PSYCHIATRIC PROGRESS NOTE This late entry for 03/20/2018 and covers the elements not covered in my initial note of 03/20/2018. SUBJECTIVE: I met with the patient in the evening. The patient slept 6-3/4 hours previous evening. Valproic acid level 69, AST 21, ALT 10, unremarkable. She continues to have some mood lability, yelling, screaming, complains of headaches. REVIEW OF SYSTEMS: Ambulation impaired, in wheelchair, has some drooling and EPS. No CV, , pulmonary, eye system symptoms on review. MENTAL STATUS EXAM: Oriented to herself and situation. Speech is as above. Head bent forwards , in her wheelchair. Abstraction fair, computation impaired, language function intact. Mood and affect somewhat withdrawn. LABORATORY DATA: Reviewed. IMPRESSION: Unchanged from initial note bipolar 1 disorder, mixed with psychotic features. Rest unchanged. PLAN: Increase Cogentin to 1 mg at bedtime. Continue Depakote at current dosage, level therapeutic. Adjust further as clinically indicated. MAN Dewayne LEWIS MD DR: LIZZETH/david JOB#: [id number] / [id number]
--- NOTE | 2018-03-23 00:26 | PN ---
DATE: 03/21/2018 PSYCHIATRIC PROGRESS NOTE This late entry 03/21/2018 covers elements not covered in my initial note. SUBJECTIVE: I met with the patient in the evening, staffed at a treatment team meeting with the entire team in the morning, reviewed her history, diagnosis, progress. The patient slept 5-1/2 hours previous evening, yelling at times, making repetitive noises, agitated at breakfast time, making sexually inappropriate comments to female nursing staff who is . She is striking out at peers. Valproic acid level 69. REVIEW OF SYSTEMS: Ambulation impaired, in wheelchair. No CV, , pulmonary, eye, ENT system symptoms on review. MENTAL STATUS EXAM: Oriented to herself, situation, seated in wheelchair, head bent forward. Speech has some latency, low in volume, coherent, irritable at times. Abstraction fair, computation impaired, language function intact, attention span short. Mood and affect remain somewhat labile. LABORATORY DATA: Reviewed. IMPRESSION: Unchanged from initial note. PLAN: Continue current psychotropics. May add low dose Luvox for her obsessive thought processes, but I want to minimize this since it could worsen some of her manic symptoms. We will reassess in the next day or so. HERMILO LEWIS MD DR: LIZZETH/david JOB#: [id number] / [id number]
[2018-03-23 05:57] VITALS: BP 137/63
[2018-03-23] MEDS: LEVOTHYROXINE 75 MCG TABLET PO SCH (07:00)
[2018-03-23] MEDS: CARBIDOPA/LEVODOPA 25/100MG TABLET PO SCH ×4 (08:04→19:46)
[2018-03-23] MEDS: rOPINIRole 1 MG TABLET. PO SCH ×3 (08:04→19:46)
[2018-03-23] MEDS: LACTOBACILLUS RHAMNOSUS GG 1 CAPSULE. PO SCH ×2 (08:05→19:46)
[2018-03-23] MEDS: DIVALPROEX 125 MG CAP.SPRINK PO SCH ×2 (08:05→19:46)
[2018-03-23] MEDS: risperiDONE 0.25 MG TABLET. PO SCH ×2 (08:05→19:46)
[2018-03-23] MEDS: GABAPENTIN 100 MG CAPSULE. PO SCH ×3 (08:05→19:46)
[2018-03-23] MEDS: APIXABAN 5 MG TABLET. PO SCH ×2 (08:05→19:46)
[2018-03-23] MEDS: CHOLECALCIFEROL (VITAMIN D3) 1,000 UNIT TABLET PO SCH (08:05)
[2018-03-23] MEDS: SENNOSIDES/DOCUSATE 8.6/50MG TABLET. PO SCH (08:05)
[2018-03-23] MEDS: TIMOLOL 0.5% OPHTH SOLUTION 5ML BOTTLE. OU SCH ×2 (08:06→19:45)
[2018-03-23] MEDS: MOXIFLOXACIN 0.5% OPHTH SOLUTION 3ML BOTTLE. OD SCH ×4 (08:06→19:45)
[2018-03-23] MEDS: POLYVINYL ALCOHOL 1.4% OPHTH SOLUTION 15ML BOTTLE. OU SCH ×4 (08:06→19:45)
[2018-03-23] MEDS: BRIMONIDINE 0.2% OPHTH SOLUTION 5ML BOTTLE. OU SCH ×2 (08:06→19:45)
[2018-03-23] MEDS: prednisoLONE ACETATE 1% OPHTH SUSPENSION 5ML BOTTLE. OD SCH (08:07)
[2018-03-23 16:06] VITALS: BP 125/77
[2018-03-23] MEDS: MINERAL OIL/PETROLATUM,WHITE OPHTH OINT 3.5GM TUBE. OU SCH (19:45)
[2018-03-23] MEDS: LATANOPROST 0.005% OPHTH SOLUTION 2.5ML BOTTLE. OU SCH (19:45)
[2018-03-23] MEDS: traZODone 50 MG TABLET. PO SCH (19:46)
[2018-03-23] MEDS: BENZTROPINE MESYLATE 1 MG TABLET PO SCH (19:46)
[2018-03-23] MEDS: ATORVASTATIN CALCIUM 10 MG TABLET. PO SCH (19:46)
[2018-03-23] MEDS: ASA/APAP/CAFFEINE 250/250/65MG TABLET. PO PRN (19:54)
--- NOTE | 2018-03-23 23:10 | PDOC ---
Exam Note: Massimo Note: Please also refer to the separate dictated note~for this date of service dictated separately.~Patient seen individually. Discussed the patient with Nursing staff reviewed the chart.~Reviewed interim history and current functioning. Reviewed vital signs,~Labs/ Radiology~and current medications noted below. Continue current treatment with the changes noted in the dictated addendum note Assessment: Vital Signs: Vital Signs Date Time Temp Pulse Resp B/P (MAP) Pulse Ox O2 Delivery O2 Flow Rate FiO2 03/23/18 16:06 97.6 68 16 125/77 (93) 96 Room Air I&O Intake and Output 03/23/18 06:59 Intake Total 1080 ml Balance 1080 ml Intake Oral 1080 ml Current Medications: Meds: Current Medications Olanzapine (ZyPREXA ZYDIS) 2.5 mg PRN Q2HR PRN PO Psychosis Last administered on 03/19/18at 08:52; Start 03/08/18 at 03:45 Acetaminophen (Tylenol) 650 mg PRN Q8HRS PRN PO PAIN / TEMP; Start 03/08/18 at 03:45; Status UNV Brimonidine Tartrate (Alphagan) 1 drop BID OU Last administered on 03/23/18 19 :45; Start 03/08/18 at 09:00 Carbidopa/Levodopa (Sinemet 25/100) 1 tab QID PO Last administered on 19:46; Start 03/08/18 at 09:00 Vitamin D (Vitamin D3) 1,000 unit DAILY PO Last administered on 03/23/18at 08:05 ; Start 03/08/18 at 09:00 Gabapentin (Neurontin) 100 mg TID PO Last administered on 03/23/18 19:46; Start 03/08/18 at 09:00 Levothyroxine Sodium (Synthroid) 75 mcg DAILYAC PO Last administered on at 10:53; Start 03/08/18 at 07:30; Stop 03/08/18 at 11:19; Status DC Multi-Ingred Cream/Lotion/Oil/ Oint (Artificial Tears Eye Ointment) 1 jose a HS OU Last administered on 03/23/18 19:45; Start 03/08/18 at 21:00 Moxifloxacin HCl (Vigamox) 1 drop QID OD Last administered on 03/23/18 19:45; Start 03/08/18 at 09:00; Stop 03/30/18 at 21:05 Nystatin (Nystop) 1 jose a PRN BID PRN TP RASH Last administered on 03/19/18 08: 52; Start 03/08/18 at 03:45 Prednisolone Acetate (Pred Forte) 1 drop DAILY OD Last administered on 08:07; Start 03/08/18 at 09:00; Stop 03/30/18 at 09:05 Senna/Docusate Sodium (Senna Plus) 2 tab DAILY PO Last administered on 08:05; Start 03/08/18 at 09:00 Apixaban (Eliquis) 5 mg BID PO Last administered on 03/23/18 19:46; Start 03/08 at 09:00 Acetaminophen/ Aspirin/Caffeine (Excedrin Migraine) 1 tab PRN Q6HRS PRN PO MIGRAINE HEADACHE Last administered on 03/23/18 19:54; Start 03/08/18 at 04:00 Atorvastatin Calcium (Lipitor) 10 mg QHS PO Last administered on 03/23/18 19: 46; Start 03/08/18 at 21:00 Artificial Tears (Artificial Tears) 1 drop QID OU Last administered on 19:45; Start 03/08/18 at 09:00 Latanoprost (Xalatan) 1 drop QHS OU Last administered on 03/23/18 19:45; Start 03/08/18 at 21:00 Polyethylene Glycol (miraLAX) 17 gm PRN Q8HRS PRN PO CONSTIPATION Last administered on 03/17/18 05:46; Start 03/08/18 at 09:00 Timolol Maleate (Timoptic 0.5% [facility]) 1 drop BID OU Last administered on 19:45; Start 03/08/18 at 09:00 Quetiapine Fumarate (SEROquel) 50 mg DAILY PO Last administered on 03/14/18 09 :00; Start 03/08/18 at 09:00; Stop 03/14/18 at 11:08; Status DC Quetiapine Fumarate (SEROquel) 150 mg QHS PO Last administered on 03/10/18 20: 42; Start 03/08/18 at 21:00; Stop 03/11/18 at 18:40; Status DC Venlafaxine HCl (Effexor) 50 mg TID PO Last administered on 03/11/18 14:31; Start 03/08/18 at 09:00; Stop 03/11/18 at 18:40; Status DC Acetaminophen (Tylenol) 650 mg PRN Q6HRS PRN PO PAIN / TEMP Last administered on 03/21/18at 14:20; Start 03/08/18 at 03:45 Multi-Ingredient Ointment (Analgesic [place]) 1 jose a PRN QID PRN TP MUSCLE PAIN Last administered on 03/19/18at 08:52; Start 03/08/18 at 03:45 Al Hydroxide/Mg Hydroxide (Mylanta Plus Xs) 15 ml PRN AFTMEALHC PRN PO DYSPEPSIA; Start 03/08/18 at 03:45 Magnesium Hydroxide (Milk Of Magnesia) 2,400 mg PRN QHS PRN PO CONSTIPATION Last administered on 03/16/18at 20:12; Start 03/08/18 at 03:45 Info (Anti-Coagulation Monitoring By Pharmacy) 1 each PRN DAILY PRN MC SEE COMMENTS; Start 03/08/18 at 05:00; Status Cancel Levothyroxine Sodium (Synthroid) 75 mcg DAILY06 PO Last administered on 07:00; Start 03/09/18 at 06:00 Trazodone HCl (Desyrel) 50 mg QHS PO Last administered on 03/23/18at 19:46; Start 03/08/18 at 21:00 Trazodone HCl (Desyrel) 50 mg PRN QHS PRN PO Insomnia Last administered on 03/14at 00:39; Start 03/08/18 at 19:30 Cefpodoxime Proxetil (Vantin) 200 mg BID PO Last administered on 03/18/18 09: 32; Start 03/09/18 at 21:00; Stop 03/18/18 at 10:23; Status DC Lactobacillus Rhamnosus (Culturelle) 1 cap BID PO Last administered on at 19:46; Start 03/10/18 at 09:00 Ropinirole HCl (Requip) 0.5 mg TID PO Last administered on 03/14/18 09:00; Start 03/10/18 at 14:00; Stop 03/14/18 at 12:28; Status DC Divalproex Sodium (Depakote Sprinkles) 250 mg HS PO Last administered on 19:38; Start 03/11/18 at 21:00; Stop 03/14/18 at 11:08; Status DC Quetiapine Fumarate (SEROquel) 100 mg HS PO Last administered on 03/13/18 19: 38; Start 03/11/18 at 21:00; Stop 03/14/18 at 11:08; Status DC Venlafaxine HCl (Effexor) 37.5 mg BID PO Last administered on 03/16/18 20:12; Start 03/11/18 at 21:00; Stop 03/16/18 at 21:20; Status DC Ropinirole HCl (Requip) 1 mg TID PO Last administered on 03/23/18 19:46; Start 03/14/18 at 14:00 Divalproex Sodium (Depakote Sprinkles) 250 mg BID PO Last administered on at 20:45; Start 03/14/18 at 21:00; Stop 03/17/18 at 23:52; Status DC Risperidone (RisperDAL) 0.25 mg DAILY PO Last administered on 03/23/18at 08:05; Start 03/14/18 at 12:00 Risperidone (RisperDAL) 0.5 mg HS PO Last administered on 03/16/18at 20:12; Start 03/14/18 at 21:00; Stop 03/16/18 at 21:20; Status DC Risperidone (RisperDAL) 0.75 mg HS PO Last administered on 03/23/18 19:46; Start 03/17/18 at 21:00 Venlafaxine HCl (Effexor) 37.5 mg DAILY PO Last administered on 03/18/18at 09:31 ; Start 03/17/18 at 09:00; Stop 03/18/18 at 18:29; Status DC Divalproex Sodium (Depakote Sprinkles) 500 mg BID PO Last administered on 19:46; Start 03/18/18 at 09:00 Benztropine Mesylate (Cogentin) 0.5 mg QHS PO Last administered on 03/19/18at 21 :20; Start 03/18/18 at 21:00; Stop 03/20/18 at 18:48; Status DC Benztropine Mesylate (Cogentin) 1 mg QHS PO Last administered on 03/23/18at 19: 46; Start 03/20/18 at 21:00 Active Scripts Active Reported Vitamin D3 (Cholecalciferol (Vitamin D3)) 1,000 Unit Tablet 1,000 Unit PO DAILY Vigamox (Moxifloxacin Hcl) 3 Ml Drops 1 Drop OD QID Venlafaxine Hcl Er (Venlafaxine Hcl) 150 Mg Cap.er.24h 150 Mg PO DAILY Timoptic (Timolol Maleate) 10 Ml Drops 1 Drop EACHEYE BID Seroquel (Quetiapine Fumarate) 50 Mg Tablet 50 Mg PO DAILY Seroquel (Quetiapine Fumarate) 100 Mg Tablet 150 Mg PO HS Senna-Docusate Sodium Tablet (Sennosides/Docusate Sodium) 1 Each Tablet 2 Tab PO DAILY Prednisolone Acetate 5 Ml Drops.susp 1 Drop OD DAILY Nystop (Nystatin) 60 Gm Powder 1 Jose A TP PRN BID PRN Artificial Tears Eye Drops (Dextran 70/Hypromellose) 15 Ml Drops 1 Drop EACHEYE QID Miralax (Polyethylene Glycol 3350) 17 Gm Powd.pack 17 Gm PO PRN Q8HRS PRN Artificial Tears Eye Oint (Mineral Oil/Petrolatum,White) 3.5 Gm Oint...g. 1 Drop OU HS Levothyroxine Sodium 75 Mcg Tablet 75 Mcg PO DAILYAC Latanoprost 2.5 Ml Drops 1 Drop EACHEYE QHS Gabapentin 100 Mg Capsule 100 Mg PO TID Excedrin Extra Strength Caplet (Aspirin/Acetaminophen/Caffeine) 1 Each Tablet 1 Tab PO PRN Q5HRS Eliquis (Apixaban) 5 Mg Tablet 5 Mg PO BID Sinemet 25-100 Mg Tablet (Carbidopa/Levodopa) 1 Each Tablet 1 Tab PO QID Brimonidine Tartrate 5 Ml Drops 1 Drop OU BID Atorvastatin Calcium 10 Mg Tablet 10 Mg PO QHS Tylenol (Acetaminophen) 325 Mg Tablet 650 Mg PO PRN Q8HRS PRN I have reviewed the current psychotropics carefully including drug interactions. Risk benefit ratio favors no change other than as noted in my dictated progress note. Diagnosis: Problems: (1) Anxiety disorder (2) Bipolar affective, mixed, sev w/ psych (3) Dementia, vascular, with delusions (4) Impulse control disorder HERMILO LEWIS MD Mar 23, 2018 23:10
[2018-03-24] MEDS: LEVOTHYROXINE 75 MCG TABLET PO SCH (05:41)
[2018-03-24 05:50] VITALS: BP 143/73
[2018-03-24] MEDS: LACTOBACILLUS RHAMNOSUS GG 1 CAPSULE. PO SCH ×2 (07:31→19:25)
[2018-03-24] MEDS: APIXABAN 5 MG TABLET. PO SCH ×2 (07:31→19:24)
[2018-03-24] MEDS: rOPINIRole 1 MG TABLET. PO SCH ×3 (07:31→19:25)
[2018-03-24] MEDS: CARBIDOPA/LEVODOPA 25/100MG TABLET PO SCH ×4 (07:31→19:24)
[2018-03-24] MEDS: CHOLECALCIFEROL (VITAMIN D3) 1,000 UNIT TABLET PO SCH (07:32)
[2018-03-24] MEDS: SENNOSIDES/DOCUSATE 8.6/50MG TABLET. PO SCH (07:32)
[2018-03-24] MEDS: DIVALPROEX 125 MG CAP.SPRINK PO SCH ×2 (07:32→19:25)
[2018-03-24] MEDS: GABAPENTIN 100 MG CAPSULE. PO SCH ×3 (07:32→19:24)
[2018-03-24] MEDS: risperiDONE 0.25 MG TABLET. PO SCH ×2 (07:32→19:24)
[2018-03-24] MEDS: POLYVINYL ALCOHOL 1.4% OPHTH SOLUTION 15ML BOTTLE. OU SCH ×4 (07:34→19:26)
[2018-03-24] MEDS: TIMOLOL 0.5% OPHTH SOLUTION 5ML BOTTLE. OU SCH ×2 (07:34→19:26)
[2018-03-24] MEDS: BRIMONIDINE 0.2% OPHTH SOLUTION 5ML BOTTLE. OU SCH ×2 (07:35→19:26)
[2018-03-24] MEDS: prednisoLONE ACETATE 1% OPHTH SUSPENSION 5ML BOTTLE. OD SCH ×2 (07:35→19:26)
[2018-03-24] MEDS: MOXIFLOXACIN 0.5% OPHTH SOLUTION 3ML BOTTLE. OD SCH ×4 (07:36→19:25)
[2018-03-24 16:17] VITALS: BP 124/54
--- NOTE | 2018-03-24 18:40 | PN ---
DATE: 03/22/2018 This is a late entry, 03/22/2018, covers the elements not covered in my initial note. SUBJECTIVE: The patient slept 8-1/4 hours the previous evening, remains somewhat hyperverbal, disorganized, manic with pressure of speech. REVIEW OF SYSTEMS: Ambulation impaired. No CV, , pulmonary, eye, ENT system symptoms on review. MENTAL STATUS EXAM: Oriented to herself and situation. Speech coherent, rapid at times. Abstraction fair, computation impaired, language function intact. Mood and affect remains labile. IMPRESSION: Unchanged from initial note. PLAN: No change from initial note. She has bilateral periorbital hematoma, status post bruising on her forehead. CT head negative. MAN Dewayne LEWIS MD DR: LIZZETH/david JOB#: [id number] / [id number]
[2018-03-24] MEDS: BENZTROPINE MESYLATE 1 MG TABLET PO SCH (19:24)
[2018-03-24] MEDS: ATORVASTATIN CALCIUM 10 MG TABLET. PO SCH (19:24)
[2018-03-24] MEDS: traZODone 50 MG TABLET. PO SCH (19:24)
[2018-03-24] MEDS: ASA/APAP/CAFFEINE 250/250/65MG TABLET. PO PRN (19:25)
[2018-03-24] MEDS: MINERAL OIL/PETROLATUM,WHITE OPHTH OINT 3.5GM TUBE. OU SCH (19:26)
[2018-03-24] MEDS: LATANOPROST 0.005% OPHTH SOLUTION 2.5ML BOTTLE. OU SCH (19:26)
--- NOTE | 2018-03-24 20:21 | PDOC ---
Exam Note: Massimo Note: Please also refer to the separate dictated note~for this date of service dictated separately.~Patient seen individually. Discussed the patient with Nursing staff reviewed the chart.~Reviewed interim history and current functioning. Reviewed vital signs,~Labs/ Radiology~and current medications noted below. Continue current treatment with the changes noted in the dictated addendum note Assessment: Vital Signs: Vital Signs Date Time Temp Pulse Resp B/P (MAP) Pulse Ox O2 Delivery O2 Flow Rate FiO2 03/24/18 16:17 98.0 72 22 124/54 (77) 92 03/23/18 16:06 Room Air I&O Intake and Output 03/24/18 06:59 Intake Total 1200 ml Balance 1200 ml Intake Oral 1200 ml Current Medications: Meds: Current Medications Olanzapine (ZyPREXA ZYDIS) 2.5 mg PRN Q2HR PRN PO Psychosis Last administered on 03/19/18at 08:52; Start 03/08/18 at 03:45 Acetaminophen (Tylenol) 650 mg PRN Q8HRS PRN PO PAIN / TEMP; Start 03/08/18 at 03:45; Status UNV Brimonidine Tartrate (Alphagan) 1 drop BID OU Last administered on 03/24/18 19 :26; Start 03/08/18 at 09:00 Carbidopa/Levodopa (Sinemet 25/100) 1 tab QID PO Last administered on 19:24; Start 03/08/18 at 09:00 Vitamin D (Vitamin D3) 1,000 unit DAILY PO Last administered on 03/24/18at 07:32 ; Start 03/08/18 at 09:00 Gabapentin (Neurontin) 100 mg TID PO Last administered on 03/24/18at 19:24; Start 03/08/18 at 09:00 Levothyroxine Sodium (Synthroid) 75 mcg DAILYAC PO Last administered on at 10:53; Start 03/08/18 at 07:30; Stop 03/08/18 at 11:19; Status DC Multi-Ingred Cream/Lotion/Oil/ Oint (Artificial Tears Eye Ointment) 1 jose a HS OU Last administered on 03/24/18at 19:26; Start 03/08/18 at 21:00 Moxifloxacin HCl (Vigamox) 1 drop QID OD Last administered on 03/24/18 19:25; Start 03/08/18 at 09:00; Stop 03/30/18 at 21:05 Nystatin (Nystop) 1 jose a PRN BID PRN TP RASH Last administered on 03/19/18 08: 52; Start 03/08/18 at 03:45 Prednisolone Acetate (Pred Forte) 1 drop DAILY OD Last administered on 19:26; Start 03/08/18 at 09:00; Stop 03/30/18 at 09:05 Senna/Docusate Sodium (Senna Plus) 2 tab DAILY PO Last administered on 07:32; Start 03/08/18 at 09:00 Apixaban (Eliquis) 5 mg BID PO Last administered on 03/24/18 19:24; Start 03/08 at 09:00 Acetaminophen/ Aspirin/Caffeine (Excedrin Migraine) 1 tab PRN Q6HRS PRN PO MIGRAINE HEADACHE Last administered on 03/24/18 19:25; Start 03/08/18 at 04:00 Atorvastatin Calcium (Lipitor) 10 mg QHS PO Last administered on 03/24/18 19: 24; Start 03/08/18 at 21:00 Artificial Tears (Artificial Tears) 1 drop QID OU Last administered on 19:26; Start 03/08/18 at 09:00 Latanoprost (Xalatan) 1 drop QHS OU Last administered on 03/24/18 19:26; Start 03/08/18 at 21:00 Polyethylene Glycol (miraLAX) 17 gm PRN Q8HRS PRN PO CONSTIPATION Last administered on 03/17/18 05:46; Start 03/08/18 at 09:00 Timolol Maleate (Timoptic 0.5% [facility]) 1 drop BID OU Last administered on 19:26; Start 03/08/18 at 09:00 Quetiapine Fumarate (SEROquel) 50 mg DAILY PO Last administered on 03/14/18 09 :00; Start 03/08/18 at 09:00; Stop 03/14/18 at 11:08; Status DC Quetiapine Fumarate (SEROquel) 150 mg QHS PO Last administered on 03/10/18 20: 42; Start 03/08/18 at 21:00; Stop 03/11/18 at 18:40; Status DC Venlafaxine HCl (Effexor) 50 mg TID PO Last administered on 03/11/18 14:31; Start 03/08/18 at 09:00; Stop 03/11/18 at 18:40; Status DC Acetaminophen (Tylenol) 650 mg PRN Q6HRS PRN PO PAIN / TEMP Last administered on 03/21/18at 14:20; Start 03/08/18 at 03:45 Multi-Ingredient Ointment (Analgesic [place]) 1 jose a PRN QID PRN TP MUSCLE PAIN Last administered on 03/19/18 08:52; Start 03/08/18 at 03:45 Al Hydroxide/Mg Hydroxide (Mylanta Plus Xs) 15 ml PRN AFTMEALHC PRN PO DYSPEPSIA; Start 03/08/18 at 03:45 Magnesium Hydroxide (Milk Of Magnesia) 2,400 mg PRN QHS PRN PO CONSTIPATION Last administered on 03/16/18at 20:12; Start 03/08/18 at 03:45 Info (Anti-Coagulation Monitoring By Pharmacy) 1 each PRN DAILY PRN MC SEE COMMENTS; Start 03/08/18 at 05:00; Status Cancel Levothyroxine Sodium (Synthroid) 75 mcg DAILY06 PO Last administered on at 05:41; Start 03/09/18 at 06:00 Trazodone HCl (Desyrel) 50 mg QHS PO Last administered on 03/24/18at 19:24; Start 03/08/18 at 21:00 Trazodone HCl (Desyrel) 50 mg PRN QHS PRN PO Insomnia Last administered on 03/14at 00:39; Start 03/08/18 at 19:30 Cefpodoxime Proxetil (Vantin) 200 mg BID PO Last administered on 03/18/18at 09: 32; Start 03/09/18 at 21:00; Stop 03/18/18 at 10:23; Status DC Lactobacillus Rhamnosus (Culturelle) 1 cap BID PO Last administered on 19:25; Start 03/10/18 at 09:00 Ropinirole HCl (Requip) 0.5 mg TID PO Last administered on 03/14/18 09:00; Start 03/10/18 at 14:00; Stop 03/14/18 at 12:28; Status DC Divalproex Sodium (Depakote Sprinkles) 250 mg HS PO Last administered on 19:38; Start 03/11/18 at 21:00; Stop 03/14/18 at 11:08; Status DC Quetiapine Fumarate (SEROquel) 100 mg HS PO Last administered on 03/13/18 19: 38; Start 03/11/18 at 21:00; Stop 03/14/18 at 11:08; Status DC Venlafaxine HCl (Effexor) 37.5 mg BID PO Last administered on 03/16/18 20:12; Start 03/11/18 at 21:00; Stop 03/16/18 at 21:20; Status DC Ropinirole HCl (Requip) 1 mg TID PO Last administered on 03/24/18 19:25; Start 03/14/18 at 14:00 Divalproex Sodium (Depakote Sprinkles) 250 mg BID PO Last administered on at 20:45; Start 03/14/18 at 21:00; Stop 03/17/18 at 23:52; Status DC Risperidone (RisperDAL) 0.25 mg DAILY PO Last administered on 03/24/18at 07:32; Start 03/14/18 at 12:00 Risperidone (RisperDAL) 0.5 mg HS PO Last administered on 03/16/18at 20:12; Start 03/14/18 at 21:00; Stop 03/16/18 at 21:20; Status DC Risperidone (RisperDAL) 0.75 mg HS PO Last administered on 03/24/18 19:24; Start 03/17/18 at 21:00 Venlafaxine HCl (Effexor) 37.5 mg DAILY PO Last administered on 03/18/18at 09:31 ; Start 03/17/18 at 09:00; Stop 03/18/18 at 18:29; Status DC Divalproex Sodium (Depakote Sprinkles) 500 mg BID PO Last administered on at 19:25; Start 03/18/18 at 09:00 Benztropine Mesylate (Cogentin) 0.5 mg QHS PO Last administered on 03/19/18at 21 :20; Start 03/18/18 at 21:00; Stop 03/20/18 at 18:48; Status DC Benztropine Mesylate (Cogentin) 1 mg QHS PO Last administered on 03/24/18at 19: 24; Start 03/20/18 at 21:00 Active Scripts Active Reported Vitamin D3 (Cholecalciferol (Vitamin D3)) 1,000 Unit Tablet 1,000 Unit PO DAILY Vigamox (Moxifloxacin Hcl) 3 Ml Drops 1 Drop OD QID Venlafaxine Hcl Er (Venlafaxine Hcl) 150 Mg Cap.er.24h 150 Mg PO DAILY Timoptic (Timolol Maleate) 10 Ml Drops 1 Drop EACHEYE BID Seroquel (Quetiapine Fumarate) 50 Mg Tablet 50 Mg PO DAILY Seroquel (Quetiapine Fumarate) 100 Mg Tablet 150 Mg PO HS Senna-Docusate Sodium Tablet (Sennosides/Docusate Sodium) 1 Each Tablet 2 Tab PO DAILY Prednisolone Acetate 5 Ml Drops.susp 1 Drop OD DAILY Nystop (Nystatin) 60 Gm Powder 1 Jose A TP PRN BID PRN Artificial Tears Eye Drops (Dextran 70/Hypromellose) 15 Ml Drops 1 Drop EACHEYE QID Miralax (Polyethylene Glycol 3350) 17 Gm Powd.pack 17 Gm PO PRN Q8HRS PRN Artificial Tears Eye Oint (Mineral Oil/Petrolatum,White) 3.5 Gm Oint...g. 1 Drop OU HS Levothyroxine Sodium 75 Mcg Tablet 75 Mcg PO DAILYAC Latanoprost 2.5 Ml Drops 1 Drop EACHEYE QHS Gabapentin 100 Mg Capsule 100 Mg PO TID Excedrin Extra Strength Caplet (Aspirin/Acetaminophen/Caffeine) 1 Each Tablet 1 Tab PO PRN Q5HRS Eliquis (Apixaban) 5 Mg Tablet 5 Mg PO BID Sinemet 25-100 Mg Tablet (Carbidopa/Levodopa) 1 Each Tablet 1 Tab PO QID Brimonidine Tartrate 5 Ml Drops 1 Drop OU BID Atorvastatin Calcium 10 Mg Tablet 10 Mg PO QHS Tylenol (Acetaminophen) 325 Mg Tablet 650 Mg PO PRN Q8HRS PRN I have reviewed the current psychotropics carefully including drug interactions. Risk benefit ratio favors no change other than as noted in my dictated progress note. Diagnosis: Problems: (1) Anxiety disorder (2) Bipolar affective, mixed, sev w/ psych (3) Dementia, vascular, with delusions (4) Impulse control disorder HERMILO LEWIS MD Mar 24, 2018 20:21
--- NOTE | 2018-03-24 20:27 | PN ---
DATE: 03/23/2018 This late entry 03/23/2018 covers elements not covered in my initial note. SUBJECTIVE: The patient slept 5 hours previous evening. I met with her evening of 03/23/2018. Continues to be somewhat labile in her mood. Pressure of speech is evident. REVIEW OF SYSTEMS: Ambulation impaired, in wheelchair. No CV, , pulmonary, eye system symptoms on review. MENTAL STATUS EXAM: Reasonably oriented. Speech coherent, rapid at times. Abstraction fair, computation impaired, language function intact, attention span short. Mood and affect labile. IMPRESSION: Unchanged from my initial note. PLAN: No change from my initial note. MAN Dewayne LEWIS MD DR: LIZZETH/david JOB#: [id number] / [id number]
[2018-03-25] MEDS: LEVOTHYROXINE 75 MCG TABLET PO SCH (05:51)
[2018-03-25 06:35] VITALS: BP 129/83
[2018-03-25] MEDS: APIXABAN 5 MG TABLET. PO SCH ×2 (08:56→20:12)
[2018-03-25] MEDS: GABAPENTIN 100 MG CAPSULE. PO SCH ×3 (08:56→20:12)
[2018-03-25] MEDS: rOPINIRole 1 MG TABLET. PO SCH ×3 (08:56→20:11)
[2018-03-25] MEDS: CARBIDOPA/LEVODOPA 25/100MG TABLET PO SCH ×4 (08:56→20:11)
[2018-03-25] MEDS: CHOLECALCIFEROL (VITAMIN D3) 1,000 UNIT TABLET PO SCH (08:57)
[2018-03-25] MEDS: DIVALPROEX 125 MG CAP.SPRINK PO SCH ×2 (08:57→20:12)
[2018-03-25] MEDS: risperiDONE 0.25 MG TABLET. PO SCH ×2 (08:57→20:11)
[2018-03-25] MEDS: SENNOSIDES/DOCUSATE 8.6/50MG TABLET. PO SCH (08:57)
[2018-03-25] MEDS: LACTOBACILLUS RHAMNOSUS GG 1 CAPSULE. PO SCH ×2 (08:57→20:12)
[2018-03-25] MEDS: BRIMONIDINE 0.2% OPHTH SOLUTION 5ML BOTTLE. OU SCH ×2 (08:58→20:21)
[2018-03-25] MEDS: TIMOLOL 0.5% OPHTH SOLUTION 5ML BOTTLE. OU SCH ×2 (08:58→20:20)
[2018-03-25] MEDS: MOXIFLOXACIN 0.5% OPHTH SOLUTION 3ML BOTTLE. OD SCH ×4 (08:58→20:20)
[2018-03-25] MEDS: NYSTATIN TOPICAL POWDER 15GM BOTTLE. TP PRN (08:59)
[2018-03-25] MEDS: POLYVINYL ALCOHOL 1.4% OPHTH SOLUTION 15ML BOTTLE. OU SCH ×4 (09:00→20:18)
[2018-03-25] MEDS: ACETAMINOPHEN 325 MG TABLET PO PRN (09:04)
[2018-03-25 16:14] VITALS: BP 133/74
[2018-03-25] MEDS: ATORVASTATIN CALCIUM 10 MG TABLET. PO SCH (20:11)
[2018-03-25] MEDS: BENZTROPINE MESYLATE 1 MG TABLET PO SCH (20:11)
[2018-03-25] MEDS: traZODone 50 MG TABLET. PO SCH (20:11)
[2018-03-25] MEDS: LATANOPROST 0.005% OPHTH SOLUTION 2.5ML BOTTLE. OU SCH (20:20)
[2018-03-25] MEDS: MINERAL OIL/PETROLATUM,WHITE OPHTH OINT 3.5GM TUBE. OU SCH (20:22)
--- NOTE | 2018-03-25 20:43 | PDOC ---
Exam Note: Massimo Note: Please also refer to the separate dictated note~for this date of service dictated separately.~Patient seen individually. Discussed the patient with Nursing staff reviewed the chart.~Reviewed interim history and current functioning. Reviewed vital signs,~Labs/ Radiology~and current medications noted below. Continue current treatment with the changes noted in the dictated addendum note Assessment: Vital Signs: Vital Signs Date Time Temp Pulse Resp B/P (MAP) Pulse Ox O2 Delivery O2 Flow Rate FiO2 03/25/18 16:14 98.0 67 18 133/74 (93) 92 03/23/18 16:06 Room Air I&O Intake and Output 03/25/18 07:00 Intake Total 960 ml Balance 960 ml Intake Oral 960 ml Current Medications: Meds: Current Medications Olanzapine (ZyPREXA ZYDIS) 2.5 mg PRN Q2HR PRN PO Psychosis Last administered on 03/19/18at 08:52; Start 03/08/18 at 03:45 Acetaminophen (Tylenol) 650 mg PRN Q8HRS PRN PO PAIN / TEMP; Start 03/08/18 at 03:45; Status UNV Brimonidine Tartrate (Alphagan) 1 drop BID OU Last administered on 03/25/18at 20 :21; Start 03/08/18 at 09:00 Carbidopa/Levodopa (Sinemet 25/100) 1 tab QID PO Last administered on at 20:11; Start 03/08/18 at 09:00 Vitamin D (Vitamin D3) 1,000 unit DAILY PO Last administered on 03/25/18at 08:57 ; Start 03/08/18 at 09:00 Gabapentin (Neurontin) 100 mg TID PO Last administered on 03/25/18at 20:12; Start 03/08/18 at 09:00 Levothyroxine Sodium (Synthroid) 75 mcg DAILYAC PO Last administered on at 10:53; Start 03/08/18 at 07:30; Stop 03/08/18 at 11:19; Status DC Multi-Ingred Cream/Lotion/Oil/ Oint (Artificial Tears Eye Ointment) 1 jose a HS OU Last administered on 03/25/18at 20:22; Start 03/08/18 at 21:00 Moxifloxacin HCl (Vigamox) 1 drop QID OD Last administered on 03/25/18 20:20; Start 03/08/18 at 09:00; Stop 03/30/18 at 21:05 Nystatin (Nystop) 1 jose a PRN BID PRN TP RASH Last administered on 03/25/18 08: 59; Start 03/08/18 at 03:45 Prednisolone Acetate (Pred Forte) 1 drop DAILY OD Last administered on 19:26; Start 03/08/18 at 09:00; Stop 03/30/18 at 09:05 Senna/Docusate Sodium (Senna Plus) 2 tab DAILY PO Last administered on 08:57; Start 03/08/18 at 09:00 Apixaban (Eliquis) 5 mg BID PO Last administered on 03/25/18 20:12; Start 03/08 at 09:00 Acetaminophen/ Aspirin/Caffeine (Excedrin Migraine) 1 tab PRN Q6HRS PRN PO MIGRAINE HEADACHE Last administered on 03/24/18 19:25; Start 03/08/18 at 04:00 Atorvastatin Calcium (Lipitor) 10 mg QHS PO Last administered on 03/25/18 20: 11; Start 03/08/18 at 21:00 Artificial Tears (Artificial Tears) 1 drop QID OU Last administered on 20:18; Start 03/08/18 at 09:00 Latanoprost (Xalatan) 1 drop QHS OU Last administered on 03/25/18 20:20; Start 03/08/18 at 21:00 Polyethylene Glycol (miraLAX) 17 gm PRN Q8HRS PRN PO CONSTIPATION Last administered on 03/17/18 05:46; Start 03/08/18 at 09:00 Timolol Maleate (Timoptic 0.5% [facility]) 1 drop BID OU Last administered on 20:20; Start 03/08/18 at 09:00 Quetiapine Fumarate (SEROquel) 50 mg DAILY PO Last administered on 03/14/18 09 :00; Start 03/08/18 at 09:00; Stop 03/14/18 at 11:08; Status DC Quetiapine Fumarate (SEROquel) 150 mg QHS PO Last administered on 03/10/18 20: 42; Start 03/08/18 at 21:00; Stop 03/11/18 at 18:40; Status DC Venlafaxine HCl (Effexor) 50 mg TID PO Last administered on 03/11/18 14:31; Start 03/08/18 at 09:00; Stop 03/11/18 at 18:40; Status DC Acetaminophen (Tylenol) 650 mg PRN Q6HRS PRN PO PAIN / TEMP Last administered on 03/25/18 09:04; Start 03/08/18 at 03:45 Multi-Ingredient Ointment (Analgesic [place]) 1 jose a PRN QID PRN TP MUSCLE PAIN Last administered on 03/19/18 08:52; Start 03/08/18 at 03:45 Al Hydroxide/Mg Hydroxide (Mylanta Plus Xs) 15 ml PRN AFTMEALHC PRN PO DYSPEPSIA; Start 03/08/18 at 03:45 Magnesium Hydroxide (Milk Of Magnesia) 2,400 mg PRN QHS PRN PO CONSTIPATION Last administered on 03/16/18 20:12; Start 03/08/18 at 03:45 Info (Anti-Coagulation Monitoring By Pharmacy) 1 each PRN DAILY PRN MC SEE COMMENTS; Start 03/08/18 at 05:00; Status Cancel Levothyroxine Sodium (Synthroid) 75 mcg DAILY06 PO Last administered on 05:51; Start 03/09/18 at 06:00 Trazodone HCl (Desyrel) 50 mg QHS PO Last administered on 03/25/18 20:11; Start 03/08/18 at 21:00 Trazodone HCl (Desyrel) 50 mg PRN QHS PRN PO Insomnia Last administered on 03/14at 00:39; Start 03/08/18 at 19:30 Cefpodoxime Proxetil (Vantin) 200 mg BID PO Last administered on 03/18/18 09: 32; Start 03/09/18 at 21:00; Stop 03/18/18 at 10:23; Status DC Lactobacillus Rhamnosus (Culturelle) 1 cap BID PO Last administered on 20:12; Start 03/10/18 at 09:00 Ropinirole HCl (Requip) 0.5 mg TID PO Last administered on 03/14/18 09:00; Start 03/10/18 at 14:00; Stop 03/14/18 at 12:28; Status DC Divalproex Sodium (Depakote Sprinkles) 250 mg HS PO Last administered on 19:38; Start 03/11/18 at 21:00; Stop 03/14/18 at 11:08; Status DC Quetiapine Fumarate (SEROquel) 100 mg HS PO Last administered on 03/13/18 19: 38; Start 03/11/18 at 21:00; Stop 03/14/18 at 11:08; Status DC Venlafaxine HCl (Effexor) 37.5 mg BID PO Last administered on 03/16/18 20:12; Start 03/11/18 at 21:00; Stop 03/16/18 at 21:20; Status DC Ropinirole HCl (Requip) 1 mg TID PO Last administered on 03/25/18 20:11; Start 03/14/18 at 14:00 Divalproex Sodium (Depakote Sprinkles) 250 mg BID PO Last administered on 20:45; Start 03/14/18 at 21:00; Stop 03/17/18 at 23:52; Status DC Risperidone (RisperDAL) 0.25 mg DAILY PO Last administered on 03/25/18 08:57; Start 03/14/18 at 12:00 Risperidone (RisperDAL) 0.5 mg HS PO Last administered on 03/16/18 20:12; Start 03/14/18 at 21:00; Stop 03/16/18 at 21:20; Status DC Risperidone (RisperDAL) 0.75 mg HS PO Last administered on 03/25/18 20:11; Start 03/17/18 at 21:00 Venlafaxine HCl (Effexor) 37.5 mg DAILY PO Last administered on 03/18/18 09:31 ; Start 03/17/18 at 09:00; Stop 03/18/18 at 18:29; Status DC Divalproex Sodium (Depakote Sprinkles) 500 mg BID PO Last administered on at 20:12; Start 03/18/18 at 09:00 Benztropine Mesylate (Cogentin) 0.5 mg QHS PO Last administered on 03/19/18at 21 :20; Start 03/18/18 at 21:00; Stop 03/20/18 at 18:48; Status DC Benztropine Mesylate (Cogentin) 1 mg QHS PO Last administered on 03/25/18at 20: 11; Start 03/20/18 at 21:00 Active Scripts Active Reported Vitamin D3 (Cholecalciferol (Vitamin D3)) 1,000 Unit Tablet 1,000 Unit PO DAILY Vigamox (Moxifloxacin Hcl) 3 Ml Drops 1 Drop OD QID Venlafaxine Hcl Er (Venlafaxine Hcl) 150 Mg Cap.er.24h 150 Mg PO DAILY Timoptic (Timolol Maleate) 10 Ml Drops 1 Drop EACHEYE BID Seroquel (Quetiapine Fumarate) 50 Mg Tablet 50 Mg PO DAILY Seroquel (Quetiapine Fumarate) 100 Mg Tablet 150 Mg PO HS Senna-Docusate Sodium Tablet (Sennosides/Docusate Sodium) 1 Each Tablet 2 Tab PO DAILY Prednisolone Acetate 5 Ml Drops.susp 1 Drop OD DAILY Nystop (Nystatin) 60 Gm Powder 1 Jose A TP PRN BID PRN Artificial Tears Eye Drops (Dextran 70/Hypromellose) 15 Ml Drops 1 Drop EACHEYE QID Miralax (Polyethylene Glycol 3350) 17 Gm Powd.pack 17 Gm PO PRN Q8HRS PRN Artificial Tears Eye Oint (Mineral Oil/Petrolatum,White) 3.5 Gm Oint...g. 1 Drop OU HS Levothyroxine Sodium 75 Mcg Tablet 75 Mcg PO DAILYAC Latanoprost 2.5 Ml Drops 1 Drop EACHEYE QHS Gabapentin 100 Mg Capsule 100 Mg PO TID Excedrin Extra Strength Caplet (Aspirin/Acetaminophen/Caffeine) 1 Each Tablet 1 Tab PO PRN Q5HRS Eliquis (Apixaban) 5 Mg Tablet 5 Mg PO BID Sinemet 25-100 Mg Tablet (Carbidopa/Levodopa) 1 Each Tablet 1 Tab PO QID Brimonidine Tartrate 5 Ml Drops 1 Drop OU BID Atorvastatin Calcium 10 Mg Tablet 10 Mg PO QHS Tylenol (Acetaminophen) 325 Mg Tablet 650 Mg PO PRN Q8HRS PRN I have reviewed the current psychotropics carefully including drug interactions. Risk benefit ratio favors no change other than as noted in my dictated progress note. Diagnosis: Problems: (1) Anxiety disorder (2) Bipolar affective, mixed, sev w/ psych (3) Dementia, vascular, with delusions (4) Impulse control disorder HERMILO LEWIS MD Mar 25, 2018 20:43
--- NOTE | 2018-03-25 22:05 | PN ---
DATE: 03/24/2018 This late entry 03/24/2018 covers elements not covered in my initial note. SUBJECTIVE: I met with the patient in the evening. The patient slept 7-1/2 hours previous evening, yelling out at times labile, compliant with medications. REVIEW OF SYSTEMS: Ambulation impaired, in wheelchair. No CV, , pulmonary, eye system symptoms on review. MENTAL STATUS EXAM: Oriented to herself and situation. Speech is difficult to understand. Sitting bent forward. Abstraction fair, computation impaired, language function intact, attention span short. Mood and affect remain labile. Reviewed extensive records, received and will review them again on 03/25/2018. LABORATORY DATA: Reviewed. IMPRESSION: Bipolar 1 disorder, mixed with psychotic features. Rest unchanged from initial note. PLAN: Continue psychotropics from initial note. MAN Dewayne LEWIS MD DR: LIZZETH/david JOB#: [id number] / [id number]
[2018-03-26] MEDS: LEVOTHYROXINE 75 MCG TABLET PO SCH (05:37)
[2018-03-26 05:56] VITALS: BP 151/71
[2018-03-26] MEDS: APIXABAN 5 MG TABLET. PO SCH ×2 (10:14→22:28)
[2018-03-26] MEDS: CHOLECALCIFEROL (VITAMIN D3) 1,000 UNIT TABLET PO SCH (10:14)
[2018-03-26] MEDS: GABAPENTIN 100 MG CAPSULE. PO SCH ×3 (10:14→22:29)
[2018-03-26] MEDS: LACTOBACILLUS RHAMNOSUS GG 1 CAPSULE. PO SCH ×2 (10:14→22:28)
[2018-03-26] MEDS: rOPINIRole 1 MG TABLET. PO SCH ×3 (10:14→22:29)
[2018-03-26] MEDS: SENNOSIDES/DOCUSATE 8.6/50MG TABLET. PO SCH (10:14)
[2018-03-26] MEDS: CARBIDOPA/LEVODOPA 25/100MG TABLET PO SCH ×4 (10:14→22:28)
[2018-03-26] MEDS: risperiDONE 0.25 MG TABLET. PO SCH ×2 (10:15→22:28)
[2018-03-26] MEDS: DIVALPROEX 125 MG CAP.SPRINK PO SCH ×2 (10:15→22:28)
[2018-03-26] MEDS: prednisoLONE ACETATE 1% OPHTH SUSPENSION 5ML BOTTLE. OD SCH (10:19)
[2018-03-26] MEDS: POLYVINYL ALCOHOL 1.4% OPHTH SOLUTION 15ML BOTTLE. OU SCH ×4 (10:20→22:31)
[2018-03-26] MEDS: MOXIFLOXACIN 0.5% OPHTH SOLUTION 3ML BOTTLE. OD SCH ×4 (10:20→22:31)
[2018-03-26] MEDS: BRIMONIDINE 0.2% OPHTH SOLUTION 5ML BOTTLE. OU SCH ×2 (10:20→22:32)
[2018-03-26] MEDS: TIMOLOL 0.5% OPHTH SOLUTION 5ML BOTTLE. OU SCH ×2 (10:20→22:32)
[2018-03-26 16:05] VITALS: BP 117/75
[2018-03-26] MEDS: NYSTATIN 100,000 UNITS/ML ORAL SUSPENSION 60ML BOTTLE. SWSW SCH ×2 (18:22→23:06)
--- NOTE | 2018-03-26 21:25 | PDOC ---
Exam Note: Massimo Note: Please also refer to the separate dictated note~for this date of service dictated separately.~Patient seen individually. Discussed the patient with Nursing staff reviewed the chart.~Reviewed interim history and current functioning. Reviewed vital signs,~Labs/ Radiology~and current medications noted below. Continue current treatment with the changes noted in the dictated addendum note Assessment: Vital Signs: Vital Signs Date Time Temp Pulse Resp B/P (MAP) Pulse Ox O2 Delivery O2 Flow Rate FiO2 03/26/18 16:05 97.3 70 18 117/75 (89) 98 03/23/18 16:06 Room Air I&O Intake and Output 03/26/18 07:00 Intake Total 1320 ml Balance 1320 ml Intake Oral 1320 ml # Voids 1 # Bowel Movements 1 Current Medications: Meds: Current Medications Olanzapine (ZyPREXA ZYDIS) 2.5 mg PRN Q2HR PRN PO Psychosis Last administered on 03/19/18at 08:52; Start 03/08/18 at 03:45 Acetaminophen (Tylenol) 650 mg PRN Q8HRS PRN PO PAIN / TEMP; Start 03/08/18 at 03:45; Status UNV Brimonidine Tartrate (Alphagan) 1 drop BID OU Last administered on 03/26/18at 10 :20; Start 03/08/18 at 09:00 Carbidopa/Levodopa (Sinemet 25/100) 1 tab QID PO Last administered on at 17:51; Start 03/08/18 at 09:00 Vitamin D (Vitamin D3) 1,000 unit DAILY PO Last administered on 03/26/18at 10:14 ; Start 03/08/18 at 09:00 Gabapentin (Neurontin) 100 mg TID PO Last administered on 03/26/18at 13:18; Start 03/08/18 at 09:00 Levothyroxine Sodium (Synthroid) 75 mcg DAILYAC PO Last administered on at 10:53; Start 03/08/18 at 07:30; Stop 03/08/18 at 11:19; Status DC Multi-Ingred Cream/Lotion/Oil/ Oint (Artificial Tears Eye Ointment) 1 jose a HS OU Last administered on 03/25/18at 20:22; Start 03/08/18 at 21:00 Moxifloxacin HCl (Vigamox) 1 drop QID OD Last administered on 03/26/18 18:23; Start 03/08/18 at 09:00; Stop 03/30/18 at 21:05 Nystatin (Nystop) 1 jose a PRN BID PRN TP RASH Last administered on 03/25/18 08: 59; Start 03/08/18 at 03:45 Prednisolone Acetate (Pred Forte) 1 drop DAILY OD Last administered on 10:19; Start 03/08/18 at 09:00; Stop 03/30/18 at 09:05 Senna/Docusate Sodium (Senna Plus) 2 tab DAILY PO Last administered on 10:14; Start 03/08/18 at 09:00 Apixaban (Eliquis) 5 mg BID PO Last administered on 03/26/18 10:14; Start 03/08 at 09:00 Acetaminophen/ Aspirin/Caffeine (Excedrin Migraine) 1 tab PRN Q6HRS PRN PO MIGRAINE HEADACHE Last administered on 03/24/18 19:25; Start 03/08/18 at 04:00 Atorvastatin Calcium (Lipitor) 10 mg QHS PO Last administered on 03/25/18 20: 11; Start 03/08/18 at 21:00 Artificial Tears (Artificial Tears) 1 drop QID OU Last administered on 18:23; Start 03/08/18 at 09:00 Latanoprost (Xalatan) 1 drop QHS OU Last administered on 03/25/18 20:20; Start 03/08/18 at 21:00 Polyethylene Glycol (miraLAX) 17 gm PRN Q8HRS PRN PO CONSTIPATION Last administered on 03/17/18 05:46; Start 03/08/18 at 09:00 Timolol Maleate (Timoptic 0.5% [facility]) 1 drop BID OU Last administered on 10:20; Start 03/08/18 at 09:00 Quetiapine Fumarate (SEROquel) 50 mg DAILY PO Last administered on 03/14/18 09 :00; Start 03/08/18 at 09:00; Stop 03/14/18 at 11:08; Status DC Quetiapine Fumarate (SEROquel) 150 mg QHS PO Last administered on 03/10/18 20: 42; Start 03/08/18 at 21:00; Stop 03/11/18 at 18:40; Status DC Venlafaxine HCl (Effexor) 50 mg TID PO Last administered on 03/11/18 14:31; Start 03/08/18 at 09:00; Stop 03/11/18 at 18:40; Status DC Acetaminophen (Tylenol) 650 mg PRN Q6HRS PRN PO PAIN / TEMP Last administered on 03/25/18 09:04; Start 03/08/18 at 03:45 Multi-Ingredient Ointment (Analgesic [place]) 1 jose a PRN QID PRN TP MUSCLE PAIN Last administered on 03/19/18 08:52; Start 03/08/18 at 03:45 Al Hydroxide/Mg Hydroxide (Mylanta Plus Xs) 15 ml PRN AFTMEALHC PRN PO DYSPEPSIA; Start 03/08/18 at 03:45 Magnesium Hydroxide (Milk Of Magnesia) 2,400 mg PRN QHS PRN PO CONSTIPATION Last administered on 03/16/18 20:12; Start 03/08/18 at 03:45 Info (Anti-Coagulation Monitoring By Pharmacy) 1 each PRN DAILY PRN MC SEE COMMENTS; Start 03/08/18 at 05:00; Status Cancel Levothyroxine Sodium (Synthroid) 75 mcg DAILY06 PO Last administered on 05:37; Start 03/09/18 at 06:00 Trazodone HCl (Desyrel) 50 mg QHS PO Last administered on 03/25/18at 20:11; Start 03/08/18 at 21:00 Trazodone HCl (Desyrel) 50 mg PRN QHS PRN PO Insomnia Last administered on 03/14at 00:39; Start 03/08/18 at 19:30 Cefpodoxime Proxetil (Vantin) 200 mg BID PO Last administered on 03/18/18 09: 32; Start 03/09/18 at 21:00; Stop 03/18/18 at 10:23; Status DC Lactobacillus Rhamnosus (Culturelle) 1 cap BID PO Last administered on at 10:14; Start 03/10/18 at 09:00 Ropinirole HCl (Requip) 0.5 mg TID PO Last administered on 03/14/18 09:00; Start 03/10/18 at 14:00; Stop 03/14/18 at 12:28; Status DC Divalproex Sodium (Depakote Sprinkles) 250 mg HS PO Last administered on 19:38; Start 03/11/18 at 21:00; Stop 03/14/18 at 11:08; Status DC Quetiapine Fumarate (SEROquel) 100 mg HS PO Last administered on 03/13/18at 19: 38; Start 03/11/18 at 21:00; Stop 03/14/18 at 11:08; Status DC Venlafaxine HCl (Effexor) 37.5 mg BID PO Last administered on 03/16/18at 20:12; Start 03/11/18 at 21:00; Stop 03/16/18 at 21:20; Status DC Ropinirole HCl (Requip) 1 mg TID PO Last administered on 03/26/18 13:18; Start 03/14/18 at 14:00 Divalproex Sodium (Depakote Sprinkles) 250 mg BID PO Last administered on at 20:45; Start 03/14/18 at 21:00; Stop 03/17/18 at 23:52; Status DC Risperidone (RisperDAL) 0.25 mg DAILY PO Last administered on 03/26/18 10:15; Start 03/14/18 at 12:00 Risperidone (RisperDAL) 0.5 mg HS PO Last administered on 03/16/18 20:12; Start 03/14/18 at 21:00; Stop 03/16/18 at 21:20; Status DC Risperidone (RisperDAL) 0.75 mg HS PO Last administered on 03/25/18at 20:11; Start 03/17/18 at 21:00 Venlafaxine HCl (Effexor) 37.5 mg DAILY PO Last administered on 03/18/18at 09:31 ; Start 03/17/18 at 09:00; Stop 03/18/18 at 18:29; Status DC Divalproex Sodium (Depakote Sprinkles) 500 mg BID PO Last administered on 7/24/ 18at 10:15; Start 03/18/18 at 09:00 Benztropine Mesylate (Cogentin) 0.5 mg QHS PO Last administered on 03/19/18at 21 :20; Start 03/18/18 at 21:00; Stop 03/20/18 at 18:48; Status DC Benztropine Mesylate (Cogentin) 1 mg QHS PO Last administered on 03/25/18at 20: 11; Start 03/20/18 at 21:00 Nystatin (Mycostatin) 5 ml QID SWSW Last administered on 03/26/18at 18:22; Start 03/26/18 at 17:00 Active Scripts Active Reported Vitamin D3 (Cholecalciferol (Vitamin D3)) 1,000 Unit Tablet 1,000 Unit PO DAILY Vigamox (Moxifloxacin Hcl) 3 Ml Drops 1 Drop OD QID Venlafaxine Hcl Er (Venlafaxine Hcl) 150 Mg Cap.er.24h 150 Mg PO DAILY Timoptic (Timolol Maleate) 10 Ml Drops 1 Drop EACHEYE BID Seroquel (Quetiapine Fumarate) 50 Mg Tablet 50 Mg PO DAILY Seroquel (Quetiapine Fumarate) 100 Mg Tablet 150 Mg PO HS Senna-Docusate Sodium Tablet (Sennosides/Docusate Sodium) 1 Each Tablet 2 Tab PO DAILY Prednisolone Acetate 5 Ml Drops.susp 1 Drop OD DAILY Nystop (Nystatin) 60 Gm Powder 1 Jose A TP PRN BID PRN Artificial Tears Eye Drops (Dextran 70/Hypromellose) 15 Ml Drops 1 Drop EACHEYE QID Miralax (Polyethylene Glycol 3350) 17 Gm Powd.pack 17 Gm PO PRN Q8HRS PRN Artificial Tears Eye Oint (Mineral Oil/Petrolatum,White) 3.5 Gm Oint...g. 1 Drop OU HS Levothyroxine Sodium 75 Mcg Tablet 75 Mcg PO DAILYAC Latanoprost 2.5 Ml Drops 1 Drop EACHEYE QHS Gabapentin 100 Mg Capsule 100 Mg PO TID Excedrin Extra Strength Caplet (Aspirin/Acetaminophen/Caffeine) 1 Each Tablet 1 Tab PO PRN Q5HRS Eliquis (Apixaban) 5 Mg Tablet 5 Mg PO BID Sinemet 25-100 Mg Tablet (Carbidopa/Levodopa) 1 Each Tablet 1 Tab PO QID Brimonidine Tartrate 5 Ml Drops 1 Drop OU BID Atorvastatin Calcium 10 Mg Tablet 10 Mg PO QHS Tylenol (Acetaminophen) 325 Mg Tablet 650 Mg PO PRN Q8HRS PRN I have reviewed the current psychotropics carefully including drug interactions. Risk benefit ratio favors no change other than as noted in my dictated progress note. Diagnosis: Problems: (1) Anxiety disorder (2) Bipolar affective, mixed, sev w/ psych (3) Dementia, vascular, with delusions (4) Impulse control disorder HERMILO LEWIS MD Mar 26, 2018 21:25
[2018-03-26] MEDS: ATORVASTATIN CALCIUM 10 MG TABLET. PO SCH (22:29)
[2018-03-26] MEDS: BENZTROPINE MESYLATE 1 MG TABLET PO SCH (22:29)
[2018-03-26] MEDS: traZODone 50 MG TABLET. PO SCH (22:29)
[2018-03-26] MEDS: LATANOPROST 0.005% OPHTH SOLUTION 2.5ML BOTTLE. OU SCH (22:32)
[2018-03-26] MEDS: MINERAL OIL/PETROLATUM,WHITE OPHTH OINT 3.5GM TUBE. OU SCH (22:32)
--- NOTE | 2018-03-26 23:46 | PN ---
DATE: 03/25/2018 This late entry 03/25/2018 covers elements not covered in my initial note. SUBJECTIVE: I met with the patient in the evening. Per nursing report, the patient was quite needy the previous night. During the day, 03/25/2018, calmer, able to spend time in the day room, more cooperative. REVIEW OF SYSTEMS: Ambulation impaired, in wheelchair. No CV, , pulmonary, eye system symptoms on review. Reliability poor. MENTAL STATUS EXAM: Oriented to herself and situation. Speech coherent, low in volume, rapid seated in wheelchair with head bent forward, difficult to understand. Abstraction fair, computation impaired, language function intact, attention span short. Mood and affect remain somewhat labile. I have reviewed about 50 pages of records from [facility] with her admission back in 1986. Diagnosis of schizoaffective disorder, bipolar type. She was treated on lithium for a period of time. IMPRESSION: Unchanged from initial note. PLAN: Continue psychotropics from initial note and adjust Depakote. Valproic acid level therapeutic at 69. Risperdal is total of 1 mg a day, Cogentin 1 mg at bedtime. We may discontinue this. Continue trazodone and may add Wellbutrin as an antidepressant. HERMILO LEWIS MD DR: LIZZETH/david JOB#: [id number] / [id number]
[2018-03-27 06:14] VITALS: BP 130/68
[2018-03-27] MEDS: LEVOTHYROXINE 75 MCG TABLET PO SCH (06:32)
[2018-03-27] MEDS: CARBIDOPA/LEVODOPA 25/100MG TABLET PO SCH ×4 (10:22→21:10)
[2018-03-27] MEDS: LACTOBACILLUS RHAMNOSUS GG 1 CAPSULE. PO SCH ×2 (10:22→21:10)
[2018-03-27] MEDS: GABAPENTIN 100 MG CAPSULE. PO SCH ×3 (10:22→21:10)
[2018-03-27] MEDS: SENNOSIDES/DOCUSATE 8.6/50MG TABLET. PO SCH (10:22)
[2018-03-27] MEDS: CHOLECALCIFEROL (VITAMIN D3) 1,000 UNIT TABLET PO SCH (10:22)
[2018-03-27] MEDS: DIVALPROEX 125 MG CAP.SPRINK PO SCH ×2 (10:22→21:10)
[2018-03-27] MEDS: APIXABAN 5 MG TABLET. PO SCH ×2 (10:23→21:10)
[2018-03-27] MEDS: BRIMONIDINE 0.2% OPHTH SOLUTION 5ML BOTTLE. OU SCH ×2 (10:23→22:31)
[2018-03-27] MEDS: risperiDONE 0.25 MG TABLET. PO SCH ×2 (10:23→21:10)
[2018-03-27] MEDS: NYSTATIN 100,000 UNITS/ML ORAL SUSPENSION 60ML BOTTLE. SWSW SCH ×4 (10:23→21:11)
[2018-03-27] MEDS: rOPINIRole 1 MG TABLET. PO SCH ×3 (10:23→21:10)
[2018-03-27] MEDS: MOXIFLOXACIN 0.5% OPHTH SOLUTION 3ML BOTTLE. OD SCH ×4 (10:23→22:32)
[2018-03-27] MEDS: POLYVINYL ALCOHOL 1.4% OPHTH SOLUTION 15ML BOTTLE. OU SCH ×4 (10:23→22:30)
[2018-03-27] MEDS: TIMOLOL 0.5% OPHTH SOLUTION 5ML BOTTLE. OU SCH ×2 (10:24→22:33)
[2018-03-27] MEDS: prednisoLONE ACETATE 1% OPHTH SUSPENSION 5ML BOTTLE. OD SCH (10:24)
[2018-03-27 16:27] VITALS: BP 155/76
--- NOTE | 2018-03-27 19:47 | PN ---
DATE: 03/26/2018 PSYCHIATRIC PROGRESS NOTE This is a late entry 03/26/2018 covers elements not covered in my initial note. SUBJECTIVE: I met with the patient in the evening. The patient slept 8-1/4 hours previous evening. She has some thrush in her mouth and will defer to Dr. Stinson. I have reviewed about 40-50 pages of records from [facility] back in 1986, diagnosis of schizoaffective disorder, bipolar type and past treatment on lithium, amongst other psychotropics. Per nursing reports, she has been more coherent, still some pressure of speech is evident. REVIEW OF SYSTEMS: Ambulation impaired, in wheelchair, seated in wheelchair, head bent forward. No CV, , pulmonary, eye, ENT system symptoms on review. MENTAL STATUS EXAM: Oriented to herself and situation. Speech as noted, abstraction fair, computation impaired, language function intact, attention span short. Mood and affect remain somewhat anxious, labile. LABORATORY DATA: Reviewed. IMPRESSION: Unchanged from initial note. PLAN: No change from psychiatric standpoint from initial note. MAN Dewayne LEWIS MD DR: LIZZETH/david JOB#: [id number] / [id number]
--- NOTE | 2018-03-27 21:08 | PDOC ---
Exam Note: Massimo Note: Please also refer to the separate dictated note~for this date of service dictated separately.~Patient seen individually. Discussed the patient with Nursing staff reviewed the chart.~Reviewed interim history and current functioning. Reviewed vital signs,~Labs/ Radiology~and current medications noted below. Continue current treatment with the changes noted in the dictated addendum note Assessment: Vital Signs: Vital Signs Date Time Temp Pulse Resp B/P (MAP) Pulse Ox O2 Delivery O2 Flow Rate FiO2 03/27/18 16:27 99.1 81 17 155/76 (102) 97 Room Air I&O Intake and Output 03/27/18 07:00 Intake Total 1440 ml Balance 1440 ml Intake Oral 1440 ml # Voids 1 # Bowel Movements 1 Current Medications: Meds: Current Medications Olanzapine (ZyPREXA ZYDIS) 2.5 mg PRN Q2HR PRN PO Psychosis Last administered on 03/19/18at 08:52; Start 03/08/18 at 03:45 Acetaminophen (Tylenol) 650 mg PRN Q8HRS PRN PO PAIN / TEMP; Start 03/08/18 at 03:45; Status UNV Brimonidine Tartrate (Alphagan) 1 drop BID OU Last administered on 03/27/18at 10 :23; Start 03/08/18 at 09:00 Carbidopa/Levodopa (Sinemet 25/100) 1 tab QID PO Last administered on at 18:41; Start 03/08/18 at 09:00 Vitamin D (Vitamin D3) 1,000 unit DAILY PO Last administered on 03/27/18at 10:22 ; Start 03/08/18 at 09:00 Gabapentin (Neurontin) 100 mg TID PO Last administered on 03/27/18at 13:42; Start 03/08/18 at 09:00 Levothyroxine Sodium (Synthroid) 75 mcg DAILYAC PO Last administered on at 10:53; Start 03/08/18 at 07:30; Stop 03/08/18 at 11:19; Status DC Multi-Ingred Cream/Lotion/Oil/ Oint (Artificial Tears Eye Ointment) 1 jose a HS OU Last administered on 03/26/18at 22:32; Start 03/08/18 at 21:00 Moxifloxacin HCl (Vigamox) 1 drop QID OD Last administered on 03/27/18 18:42; Start 03/08/18 at 09:00; Stop 03/30/18 at 21:05 Nystatin (Nystop) 1 jose a PRN BID PRN TP RASH Last administered on 03/25/18 08: 59; Start 03/08/18 at 03:45 Prednisolone Acetate (Pred Forte) 1 drop DAILY OD Last administered on 10:24; Start 03/08/18 at 09:00; Stop 03/30/18 at 09:05 Senna/Docusate Sodium (Senna Plus) 2 tab DAILY PO Last administered on 10:22; Start 03/08/18 at 09:00 Apixaban (Eliquis) 5 mg BID PO Last administered on 03/27/18 10:23; Start 03/08 at 09:00 Acetaminophen/ Aspirin/Caffeine (Excedrin Migraine) 1 tab PRN Q6HRS PRN PO MIGRAINE HEADACHE Last administered on 03/24/18 19:25; Start 03/08/18 at 04:00 Atorvastatin Calcium (Lipitor) 10 mg QHS PO Last administered on 03/26/18 22: 29; Start 03/08/18 at 21:00 Artificial Tears (Artificial Tears) 1 drop QID OU Last administered on 18:42; Start 03/08/18 at 09:00 Latanoprost (Xalatan) 1 drop QHS OU Last administered on 03/26/18 22:32; Start 03/08/18 at 21:00 Polyethylene Glycol (miraLAX) 17 gm PRN Q8HRS PRN PO CONSTIPATION Last administered on 03/17/18 05:46; Start 03/08/18 at 09:00 Timolol Maleate (Timoptic 0.5% [facility]) 1 drop BID OU Last administered on 10:24; Start 03/08/18 at 09:00 Quetiapine Fumarate (SEROquel) 50 mg DAILY PO Last administered on 03/14/18 09 :00; Start 03/08/18 at 09:00; Stop 03/14/18 at 11:08; Status DC Quetiapine Fumarate (SEROquel) 150 mg QHS PO Last administered on 03/10/18 20: 42; Start 03/08/18 at 21:00; Stop 03/11/18 at 18:40; Status DC Venlafaxine HCl (Effexor) 50 mg TID PO Last administered on 03/11/18 14:31; Start 03/08/18 at 09:00; Stop 03/11/18 at 18:40; Status DC Acetaminophen (Tylenol) 650 mg PRN Q6HRS PRN PO PAIN / TEMP Last administered on 03/25/18 09:04; Start 03/08/18 at 03:45 Multi-Ingredient Ointment (Analgesic [place]) 1 jose a PRN QID PRN TP MUSCLE PAIN Last administered on 03/19/18 08:52; Start 03/08/18 at 03:45 Al Hydroxide/Mg Hydroxide (Mylanta Plus Xs) 15 ml PRN AFTMEALHC PRN PO DYSPEPSIA; Start 03/08/18 at 03:45 Magnesium Hydroxide (Milk Of Magnesia) 2,400 mg PRN QHS PRN PO CONSTIPATION Last administered on 03/16/18 20:12; Start 03/08/18 at 03:45 Info (Anti-Coagulation Monitoring By Pharmacy) 1 each PRN DAILY PRN MC SEE COMMENTS; Start 03/08/18 at 05:00; Status Cancel Levothyroxine Sodium (Synthroid) 75 mcg DAILY06 PO Last administered on 06:32; Start 03/09/18 at 06:00 Trazodone HCl (Desyrel) 50 mg QHS PO Last administered on 03/26/18 22:29; Start 03/08/18 at 21:00 Trazodone HCl (Desyrel) 50 mg PRN QHS PRN PO Insomnia Last administered on 03/14at 00:39; Start 03/08/18 at 19:30 Cefpodoxime Proxetil (Vantin) 200 mg BID PO Last administered on 03/18/18 09: 32; Start 03/09/18 at 21:00; Stop 03/18/18 at 10:23; Status DC Lactobacillus Rhamnosus (Culturelle) 1 cap BID PO Last administered on 10:22; Start 03/10/18 at 09:00 Ropinirole HCl (Requip) 0.5 mg TID PO Last administered on 03/14/18 09:00; Start 03/10/18 at 14:00; Stop 03/14/18 at 12:28; Status DC Divalproex Sodium (Depakote Sprinkles) 250 mg HS PO Last administered on 19:38; Start 03/11/18 at 21:00; Stop 03/14/18 at 11:08; Status DC Quetiapine Fumarate (SEROquel) 100 mg HS PO Last administered on 03/13/18 19: 38; Start 03/11/18 at 21:00; Stop 03/14/18 at 11:08; Status DC Venlafaxine HCl (Effexor) 37.5 mg BID PO Last administered on 03/16/18 20:12; Start 03/11/18 at 21:00; Stop 03/16/18 at 21:20; Status DC Ropinirole HCl (Requip) 1 mg TID PO Last administered on 03/27/18 13:42; Start 03/14/18 at 14:00 Divalproex Sodium (Depakote Sprinkles) 250 mg BID PO Last administered on 20:45; Start 03/14/18 at 21:00; Stop 03/17/18 at 23:52; Status DC Risperidone (RisperDAL) 0.25 mg DAILY PO Last administered on 03/27/18 10:23; Start 03/14/18 at 12:00 Risperidone (RisperDAL) 0.5 mg HS PO Last administered on 03/16/18at 20:12; Start 03/14/18 at 21:00; Stop 03/16/18 at 21:20; Status DC Risperidone (RisperDAL) 0.75 mg HS PO Last administered on 03/26/18at 22:28; Start 03/17/18 at 21:00 Venlafaxine HCl (Effexor) 37.5 mg DAILY PO Last administered on 03/18/18at 09:31 ; Start 03/17/18 at 09:00; Stop 03/18/18 at 18:29; Status DC Divalproex Sodium (Depakote Sprinkles) 500 mg BID PO Last administered on 10:22; Start 03/18/18 at 09:00 Benztropine Mesylate (Cogentin) 0.5 mg QHS PO Last administered on 03/19/18at 21 :20; Start 03/18/18 at 21:00; Stop 03/20/18 at 18:48; Status DC Benztropine Mesylate (Cogentin) 1 mg QHS PO Last administered on 03/26/18at 22: 29; Start 03/20/18 at 21:00 Nystatin (Mycostatin) 5 ml QID SWSW Last administered on 03/27/18at 18:41; Start 03/26/18 at 17:00 Active Scripts Active Reported Vitamin D3 (Cholecalciferol (Vitamin D3)) 1,000 Unit Tablet 1,000 Unit PO DAILY Vigamox (Moxifloxacin Hcl) 3 Ml Drops 1 Drop OD QID Venlafaxine Hcl Er (Venlafaxine Hcl) 150 Mg Cap.er.24h 150 Mg PO DAILY Timoptic (Timolol Maleate) 10 Ml Drops 1 Drop EACHEYE BID Seroquel (Quetiapine Fumarate) 50 Mg Tablet 50 Mg PO DAILY Seroquel (Quetiapine Fumarate) 100 Mg Tablet 150 Mg PO HS Senna-Docusate Sodium Tablet (Sennosides/Docusate Sodium) 1 Each Tablet 2 Tab PO DAILY Prednisolone Acetate 5 Ml Drops.susp 1 Drop OD DAILY Nystop (Nystatin) 60 Gm Powder 1 Jose A TP PRN BID PRN Artificial Tears Eye Drops (Dextran 70/Hypromellose) 15 Ml Drops 1 Drop EACHEYE QID Miralax (Polyethylene Glycol 3350) 17 Gm Powd.pack 17 Gm PO PRN Q8HRS PRN Artificial Tears Eye Oint (Mineral Oil/Petrolatum,White) 3.5 Gm Oint...g. 1 Drop OU HS Levothyroxine Sodium 75 Mcg Tablet 75 Mcg PO DAILYAC Latanoprost 2.5 Ml Drops 1 Drop EACHEYE QHS Gabapentin 100 Mg Capsule 100 Mg PO TID Excedrin Extra Strength Caplet (Aspirin/Acetaminophen/Caffeine) 1 Each Tablet 1 Tab PO PRN Q5HRS Eliquis (Apixaban) 5 Mg Tablet 5 Mg PO BID Sinemet 25-100 Mg Tablet (Carbidopa/Levodopa) 1 Each Tablet 1 Tab PO QID Brimonidine Tartrate 5 Ml Drops 1 Drop OU BID Atorvastatin Calcium 10 Mg Tablet 10 Mg PO QHS Tylenol (Acetaminophen) 325 Mg Tablet 650 Mg PO PRN Q8HRS PRN I have reviewed the current psychotropics carefully including drug interactions. Risk benefit ratio favors no change other than as noted in my dictated progress note. Diagnosis: Problems: (1) Anxiety disorder (2) Bipolar affective, mixed, sev w/ psych (3) Dementia, vascular, with delusions (4) Impulse control disorder HERMILO LEIWS MD Mar 27, 2018 21:08
[2018-03-27] MEDS: traZODone 50 MG TABLET. PO SCH (21:10)
[2018-03-27] MEDS: ATORVASTATIN CALCIUM 10 MG TABLET. PO SCH (21:10)
[2018-03-27] MEDS: BENZTROPINE MESYLATE 1 MG TABLET PO SCH (21:10)
[2018-03-27] MEDS: MINERAL OIL/PETROLATUM,WHITE OPHTH OINT 3.5GM TUBE. OU SCH (22:30)
[2018-03-27] MEDS: LATANOPROST 0.005% OPHTH SOLUTION 2.5ML BOTTLE. OU SCH (22:30)
[2018-03-28 05:40] VITALS: BP 126/54
[2018-03-28 05:49] VITALS: BP 142/72
[2018-03-28] MEDS: LEVOTHYROXINE 75 MCG TABLET PO SCH (06:03)
[2018-03-28] MEDS: POLYVINYL ALCOHOL 1.4% OPHTH SOLUTION 15ML BOTTLE. OU SCH ×4 (09:00→21:33)
[2018-03-28] MEDS: APIXABAN 5 MG TABLET. PO SCH ×2 (11:00→20:09)
[2018-03-28] MEDS: rOPINIRole 1 MG TABLET. PO SCH ×3 (11:00→20:09)
[2018-03-28] MEDS: risperiDONE 0.25 MG TABLET. PO SCH ×2 (11:00→20:08)
[2018-03-28] MEDS: GABAPENTIN 100 MG CAPSULE. PO SCH ×3 (11:00→20:09)
[2018-03-28] MEDS: CARBIDOPA/LEVODOPA 25/100MG TABLET PO SCH ×4 (11:00→20:10)
[2018-03-28] MEDS: DIVALPROEX 125 MG CAP.SPRINK PO SCH ×2 (11:00→20:10)
[2018-03-28] MEDS: CHOLECALCIFEROL (VITAMIN D3) 1,000 UNIT TABLET PO SCH (11:00)
[2018-03-28] MEDS: SENNOSIDES/DOCUSATE 8.6/50MG TABLET. PO SCH (11:00)
[2018-03-28] MEDS: LACTOBACILLUS RHAMNOSUS GG 1 CAPSULE. PO SCH ×2 (11:01→20:09)
[2018-03-28] MEDS: NYSTATIN TOPICAL POWDER 15GM BOTTLE. TP PRN (11:01)
[2018-03-28] MEDS: NYSTATIN 100,000 UNITS/ML ORAL SUSPENSION 60ML BOTTLE. SWSW SCH ×4 (11:02→20:11)
[2018-03-28] MEDS: BRIMONIDINE 0.2% OPHTH SOLUTION 5ML BOTTLE. OU SCH ×2 (11:04→21:33)
[2018-03-28] MEDS: TIMOLOL 0.5% OPHTH SOLUTION 5ML BOTTLE. OU SCH ×2 (11:04→21:33)
[2018-03-28] MEDS: prednisoLONE ACETATE 1% OPHTH SUSPENSION 5ML BOTTLE. OD SCH (11:04)
[2018-03-28] MEDS: MOXIFLOXACIN 0.5% OPHTH SOLUTION 3ML BOTTLE. OD SCH ×4 (11:04→21:33)
[2018-03-28] MEDS: MINERAL OIL/PETROLATUM,WHITE OPHTH OINT 3.5GM TUBE. OU SCH ×2 (11:04→21:33)
[2018-03-28 16:08] VITALS: BP 173/71
[2018-03-28] MEDS: ATORVASTATIN CALCIUM 10 MG TABLET. PO SCH (20:09)
[2018-03-28] MEDS: traZODone 50 MG TABLET. PO SCH (20:09)
[2018-03-28] MEDS: BENZTROPINE MESYLATE 1 MG TABLET PO SCH (20:10)
--- NOTE | 2018-03-28 20:57 | PDOC ---
Exam Note: Massimo Note: Please also refer to the separate dictated note~for this date of service dictated separately.~Patient seen individually. Discussed the patient with Nursing staff reviewed the chart.~Reviewed interim history and current functioning. Reviewed vital signs,~Labs/ Radiology~and current medications noted below. Continue current treatment with the changes noted in the dictated addendum note Assessment: Vital Signs: Vital Signs Date Time Temp Pulse Resp B/P (MAP) Pulse Ox O2 Delivery O2 Flow Rate FiO2 03/28/18 16:08 97.8 68 19 173/71 (105) 98 03/27/18 16:27 Room Air I&O Intake and Output 03/28/18 06:59 Intake Total 1080 ml Balance 1080 ml Intake Oral 1080 ml # Voids 2 # Bowel Movements 1 Current Medications: Meds: Current Medications Olanzapine (ZyPREXA ZYDIS) 2.5 mg PRN Q2HR PRN PO Psychosis Last administered on 03/19/18 08:52; Start 03/08/18 at 03:45 Acetaminophen (Tylenol) 650 mg PRN Q8HRS PRN PO PAIN / TEMP; Start 03/08/18 at 03:45; Status UNV Brimonidine Tartrate (Alphagan) 1 drop BID OU Last administered on 03/28/18at 11 :04; Start 03/08/18 at 09:00 Carbidopa/Levodopa (Sinemet 25/100) 1 tab QID PO Last administered on at 20:10; Start 03/08/18 at 09:00 Vitamin D (Vitamin D3) 1,000 unit DAILY PO Last administered on 03/28/18at 11:00 ; Start 03/08/18 at 09:00 Gabapentin (Neurontin) 100 mg TID PO Last administered on 03/28/18 20:09; Start 03/08/18 at 09:00 Levothyroxine Sodium (Synthroid) 75 mcg DAILYAC PO Last administered on at 10:53; Start 03/08/18 at 07:30; Stop 03/08/18 at 11:19; Status DC Multi-Ingred Cream/Lotion/Oil/ Oint (Artificial Tears Eye Ointment) 1 jose a HS OU Last administered on 03/27/18at 22:30; Start 03/08/18 at 21:00 Moxifloxacin HCl (Vigamox) 1 drop QID OD Last administered on 03/28/18 17:54; Start 03/08/18 at 09:00; Stop 03/30/18 at 21:05 Nystatin (Nystop) 1 jose a PRN BID PRN TP RASH Last administered on 03/28/18 11: 01; Start 03/08/18 at 03:45 Prednisolone Acetate (Pred Forte) 1 drop DAILY OD Last administered on 11:04; Start 03/08/18 at 09:00; Stop 03/30/18 at 09:05 Senna/Docusate Sodium (Senna Plus) 2 tab DAILY PO Last administered on 11:00; Start 03/08/18 at 09:00 Apixaban (Eliquis) 5 mg BID PO Last administered on 03/28/18 20:09; Start 03/08 at 09:00 Acetaminophen/ Aspirin/Caffeine (Excedrin Migraine) 1 tab PRN Q6HRS PRN PO MIGRAINE HEADACHE Last administered on 03/24/18 19:25; Start 03/08/18 at 04:00 Atorvastatin Calcium (Lipitor) 10 mg QHS PO Last administered on 03/28/18 20: 09; Start 03/08/18 at 21:00 Artificial Tears (Artificial Tears) 1 drop QID OU Last administered on 17:54; Start 03/08/18 at 09:00 Latanoprost (Xalatan) 1 drop QHS OU Last administered on 03/27/18 22:30; Start 03/08/18 at 21:00 Polyethylene Glycol (miraLAX) 17 gm PRN Q8HRS PRN PO CONSTIPATION Last administered on 03/17/18 05:46; Start 03/08/18 at 09:00 Timolol Maleate (Timoptic 0.5% [facility]) 1 drop BID OU Last administered on 11:04; Start 03/08/18 at 09:00 Quetiapine Fumarate (SEROquel) 50 mg DAILY PO Last administered on 03/14/18 09 :00; Start 03/08/18 at 09:00; Stop 03/14/18 at 11:08; Status DC Quetiapine Fumarate (SEROquel) 150 mg QHS PO Last administered on 03/10/18 20: 42; Start 03/08/18 at 21:00; Stop 03/11/18 at 18:40; Status DC Venlafaxine HCl (Effexor) 50 mg TID PO Last administered on 03/11/18 14:31; Start 03/08/18 at 09:00; Stop 03/11/18 at 18:40; Status DC Acetaminophen (Tylenol) 650 mg PRN Q6HRS PRN PO PAIN / TEMP Last administered on 03/25/18 09:04; Start 03/08/18 at 03:45 Multi-Ingredient Ointment (Analgesic [place]) 1 jose a PRN QID PRN TP MUSCLE PAIN Last administered on 03/19/18 08:52; Start 03/08/18 at 03:45 Al Hydroxide/Mg Hydroxide (Mylanta Plus Xs) 15 ml PRN AFTMEALHC PRN PO DYSPEPSIA; Start 03/08/18 at 03:45 Magnesium Hydroxide (Milk Of Magnesia) 2,400 mg PRN QHS PRN PO CONSTIPATION Last administered on 03/16/18at 20:12; Start 03/08/18 at 03:45 Info (Anti-Coagulation Monitoring By Pharmacy) 1 each PRN DAILY PRN MC SEE COMMENTS; Start 03/08/18 at 05:00; Status Cancel Levothyroxine Sodium (Synthroid) 75 mcg DAILY06 PO Last administered on 06:03; Start 03/09/18 at 06:00 Trazodone HCl (Desyrel) 50 mg QHS PO Last administered on 03/28/18at 20:09; Start 03/08/18 at 21:00 Trazodone HCl (Desyrel) 50 mg PRN QHS PRN PO Insomnia Last administered on 03/14at 00:39; Start 03/08/18 at 19:30 Cefpodoxime Proxetil (Vantin) 200 mg BID PO Last administered on 03/18/18 09: 32; Start 03/09/18 at 21:00; Stop 03/18/18 at 10:23; Status DC Lactobacillus Rhamnosus (Culturelle) 1 cap BID PO Last administered on 20:09; Start 03/10/18 at 09:00 Ropinirole HCl (Requip) 0.5 mg TID PO Last administered on 03/14/18 09:00; Start 03/10/18 at 14:00; Stop 03/14/18 at 12:28; Status DC Divalproex Sodium (Depakote Sprinkles) 250 mg HS PO Last administered on at 19:38; Start 03/11/18 at 21:00; Stop 03/14/18 at 11:08; Status DC Quetiapine Fumarate (SEROquel) 100 mg HS PO Last administered on 03/13/18 19: 38; Start 03/11/18 at 21:00; Stop 03/14/18 at 11:08; Status DC Venlafaxine HCl (Effexor) 37.5 mg BID PO Last administered on 03/16/18 20:12; Start 03/11/18 at 21:00; Stop 03/16/18 at 21:20; Status DC Ropinirole HCl (Requip) 1 mg TID PO Last administered on 03/28/18at 20:09; Start 03/14/18 at 14:00 Divalproex Sodium (Depakote Sprinkles) 250 mg BID PO Last administered on at 20:45; Start 03/14/18 at 21:00; Stop 03/17/18 at 23:52; Status DC Risperidone (RisperDAL) 0.25 mg DAILY PO Last administered on 03/28/18at 11:00; Start 03/14/18 at 12:00 Risperidone (RisperDAL) 0.5 mg HS PO Last administered on 03/16/18at 20:12; Start 03/14/18 at 21:00; Stop 03/16/18 at 21:20; Status DC Risperidone (RisperDAL) 0.75 mg HS PO Last administered on 03/28/18 20:08; Start 03/17/18 at 21:00 Venlafaxine HCl (Effexor) 37.5 mg DAILY PO Last administered on 03/18/18at 09:31 ; Start 03/17/18 at 09:00; Stop 03/18/18 at 18:29; Status DC Divalproex Sodium (Depakote Sprinkles) 500 mg BID PO Last administered on at 20:10; Start 03/18/18 at 09:00 Benztropine Mesylate (Cogentin) 0.5 mg QHS PO Last administered on 03/19/18at 21 :20; Start 03/18/18 at 21:00; Stop 03/20/18 at 18:48; Status DC Benztropine Mesylate (Cogentin) 1 mg QHS PO Last administered on 03/28/18at 20: 10; Start 03/20/18 at 21:00 Nystatin (Mycostatin) 5 ml QID SWSW Last administered on 03/28/18at 20:11; Start 03/26/18 at 17:00 Active Scripts Active Reported Vitamin D3 (Cholecalciferol (Vitamin D3)) 1,000 Unit Tablet 1,000 Unit PO DAILY Vigamox (Moxifloxacin Hcl) 3 Ml Drops 1 Drop OD QID Venlafaxine Hcl Er (Venlafaxine Hcl) 150 Mg Cap.er.24h 150 Mg PO DAILY Timoptic (Timolol Maleate) 10 Ml Drops 1 Drop EACHEYE BID Seroquel (Quetiapine Fumarate) 50 Mg Tablet 50 Mg PO DAILY Seroquel (Quetiapine Fumarate) 100 Mg Tablet 150 Mg PO HS Senna-Docusate Sodium Tablet (Sennosides/Docusate Sodium) 1 Each Tablet 2 Tab PO DAILY Prednisolone Acetate 5 Ml Drops.susp 1 Drop OD DAILY Nystop (Nystatin) 60 Gm Powder 1 Jose A TP PRN BID PRN Artificial Tears Eye Drops (Dextran 70/Hypromellose) 15 Ml Drops 1 Drop EACHEYE QID Miralax (Polyethylene Glycol 3350) 17 Gm Powd.pack 17 Gm PO PRN Q8HRS PRN Artificial Tears Eye Oint (Mineral Oil/Petrolatum,White) 3.5 Gm Oint...g. 1 Drop OU HS Levothyroxine Sodium 75 Mcg Tablet 75 Mcg PO DAILYAC Latanoprost 2.5 Ml Drops 1 Drop EACHEYE QHS Gabapentin 100 Mg Capsule 100 Mg PO TID Excedrin Extra Strength Caplet (Aspirin/Acetaminophen/Caffeine) 1 Each Tablet 1 Tab PO PRN Q5HRS Eliquis (Apixaban) 5 Mg Tablet 5 Mg PO BID Sinemet 25-100 Mg Tablet (Carbidopa/Levodopa) 1 Each Tablet 1 Tab PO QID Brimonidine Tartrate 5 Ml Drops 1 Drop OU BID Atorvastatin Calcium 10 Mg Tablet 10 Mg PO QHS Tylenol (Acetaminophen) 325 Mg Tablet 650 Mg PO PRN Q8HRS PRN I have reviewed the current psychotropics carefully including drug interactions. Risk benefit ratio favors no change other than as noted in my dictated progress note. Diagnosis: Problems: (1) Anxiety disorder (2) Bipolar affective, mixed, sev w/ psych (3) Dementia, vascular, with delusions (4) Impulse control disorder HERMILO LEWIS MD Mar 28, 2018 20:57
[2018-03-28] MEDS: LATANOPROST 0.005% OPHTH SOLUTION 2.5ML BOTTLE. OU SCH (21:33)
[2018-03-28] MEDS: ACETAMINOPHEN 325 MG TABLET PO PRN (21:41)
[2018-03-29 05:56] VITALS: BP 118/63
[2018-03-29] MEDS: LEVOTHYROXINE 75 MCG TABLET PO SCH (06:22)
[2018-03-29] MEDS: CARBIDOPA/LEVODOPA 25/100MG TABLET PO SCH ×4 (08:08→19:26)
[2018-03-29] MEDS: LACTOBACILLUS RHAMNOSUS GG 1 CAPSULE. PO SCH ×2 (08:08→19:26)
[2018-03-29] MEDS: CHOLECALCIFEROL (VITAMIN D3) 1,000 UNIT TABLET PO SCH (08:09)
[2018-03-29] MEDS: SENNOSIDES/DOCUSATE 8.6/50MG TABLET. PO SCH (08:09)
[2018-03-29] MEDS: rOPINIRole 1 MG TABLET. PO SCH ×3 (08:09→19:26)
[2018-03-29] MEDS: APIXABAN 5 MG TABLET. PO SCH ×2 (08:09→19:26)
[2018-03-29] MEDS: DIVALPROEX 125 MG CAP.SPRINK PO SCH ×2 (08:09→19:27)
[2018-03-29] MEDS: risperiDONE 0.25 MG TABLET. PO SCH ×2 (08:09→19:27)
[2018-03-29] MEDS: GABAPENTIN 100 MG CAPSULE. PO SCH ×3 (08:09→19:26)
[2018-03-29] MEDS: TIMOLOL 0.5% OPHTH SOLUTION 5ML BOTTLE. OU SCH ×2 (10:50→21:29)
[2018-03-29] MEDS: MOXIFLOXACIN 0.5% OPHTH SOLUTION 3ML BOTTLE. OD SCH ×4 (10:50→21:28)
[2018-03-29] MEDS: BRIMONIDINE 0.2% OPHTH SOLUTION 5ML BOTTLE. OU SCH ×2 (10:51→21:28)
[2018-03-29] MEDS: POLYVINYL ALCOHOL 1.4% OPHTH SOLUTION 15ML BOTTLE. OU SCH ×4 (10:51→21:28)
[2018-03-29] MEDS: NYSTATIN 100,000 UNITS/ML ORAL SUSPENSION 60ML BOTTLE. SWSW SCH ×4 (10:51→19:27)
[2018-03-29] MEDS: prednisoLONE ACETATE 1% OPHTH SUSPENSION 5ML BOTTLE. OD SCH (10:55)
[2018-03-29 16:08] VITALS: BP 118/71
[2018-03-29] MEDS: ATORVASTATIN CALCIUM 10 MG TABLET. PO SCH (19:26)
[2018-03-29] MEDS: BENZTROPINE MESYLATE 1 MG TABLET PO SCH (19:26)
[2018-03-29] MEDS: traZODone 50 MG TABLET. PO SCH (19:27)
--- NOTE | 2018-03-29 20:45 | PDOC ---
Exam Note: Massimo Note: Please also refer to the separate dictated note~for this date of service dictated separately.~Patient seen individually. Discussed the patient with Nursing staff reviewed the chart.~Reviewed interim history and current functioning. Reviewed vital signs,~Labs/ Radiology~and current medications noted below. Continue current treatment with the changes noted in the dictated addendum note Assessment: Vital Signs: Vital Signs Date Time Temp Pulse Resp B/P (MAP) Pulse Ox O2 Delivery O2 Flow Rate FiO2 03/29/18 16:08 98.4 72 16 118/71 (87) 96 03/27/18 16:27 Room Air I&O Intake and Output 03/29/18 06:59 Intake Total 720 ml Balance 720 ml Intake Oral 720 ml # Voids 1 # Bowel Movements 1 Current Medications: Meds: Current Medications Olanzapine (ZyPREXA ZYDIS) 2.5 mg PRN Q2HR PRN PO Psychosis Last administered on 03/19/18 08:52; Start 03/08/18 at 03:45 Acetaminophen (Tylenol) 650 mg PRN Q8HRS PRN PO PAIN / TEMP; Start 03/08/18 at 03:45; Status UNV Brimonidine Tartrate (Alphagan) 1 drop BID OU Last administered on 03/29/18 10 :51; Start 03/08/18 at 09:00 Carbidopa/Levodopa (Sinemet 25/100) 1 tab QID PO Last administered on 19:26; Start 03/08/18 at 09:00 Vitamin D (Vitamin D3) 1,000 unit DAILY PO Last administered on 03/29/18at 08:09 ; Start 03/08/18 at 09:00 Gabapentin (Neurontin) 100 mg TID PO Last administered on 03/29/18 19:26; Start 03/08/18 at 09:00 Levothyroxine Sodium (Synthroid) 75 mcg DAILYAC PO Last administered on at 10:53; Start 03/08/18 at 07:30; Stop 03/08/18 at 11:19; Status DC Multi-Ingred Cream/Lotion/Oil/ Oint (Artificial Tears Eye Ointment) 1 jose a HS OU Last administered on 03/28/18at 21:33; Start 03/08/18 at 21:00 Moxifloxacin HCl (Vigamox) 1 drop QID OD Last administered on 03/29/18 19:02; Start 03/08/18 at 09:00; Stop 03/30/18 at 21:05 Nystatin (Nystop) 1 jose a PRN BID PRN TP RASH Last administered on 03/28/18 11: 01; Start 03/08/18 at 03:45 Prednisolone Acetate (Pred Forte) 1 drop DAILY OD Last administered on 10:55; Start 03/08/18 at 09:00; Stop 03/30/18 at 09:05 Senna/Docusate Sodium (Senna Plus) 2 tab DAILY PO Last administered on 08:09; Start 03/08/18 at 09:00 Apixaban (Eliquis) 5 mg BID PO Last administered on 03/29/18 19:26; Start 03/08 at 09:00 Acetaminophen/ Aspirin/Caffeine (Excedrin Migraine) 1 tab PRN Q6HRS PRN PO MIGRAINE HEADACHE Last administered on 03/24/18 19:25; Start 03/08/18 at 04:00 Atorvastatin Calcium (Lipitor) 10 mg QHS PO Last administered on 03/29/18 19: 26; Start 03/08/18 at 21:00 Artificial Tears (Artificial Tears) 1 drop QID OU Last administered on 19:02; Start 03/08/18 at 09:00 Latanoprost (Xalatan) 1 drop QHS OU Last administered on 03/28/18 21:33; Start 03/08/18 at 21:00 Polyethylene Glycol (miraLAX) 17 gm PRN Q8HRS PRN PO CONSTIPATION Last administered on 03/17/18 05:46; Start 03/08/18 at 09:00 Timolol Maleate (Timoptic 0.5% [facility]) 1 drop BID OU Last administered on 10:50; Start 03/08/18 at 09:00 Quetiapine Fumarate (SEROquel) 50 mg DAILY PO Last administered on 03/14/18 09 :00; Start 03/08/18 at 09:00; Stop 03/14/18 at 11:08; Status DC Quetiapine Fumarate (SEROquel) 150 mg QHS PO Last administered on 03/10/18 20: 42; Start 03/08/18 at 21:00; Stop 03/11/18 at 18:40; Status DC Venlafaxine HCl (Effexor) 50 mg TID PO Last administered on 03/11/18 14:31; Start 03/08/18 at 09:00; Stop 03/11/18 at 18:40; Status DC Acetaminophen (Tylenol) 650 mg PRN Q6HRS PRN PO PAIN / TEMP Last administered on 03/28/18 21:41; Start 03/08/18 at 03:45 Multi-Ingredient Ointment (Analgesic [place]) 1 jose a PRN QID PRN TP MUSCLE PAIN Last administered on 03/19/18 08:52; Start 03/08/18 at 03:45 Al Hydroxide/Mg Hydroxide (Mylanta Plus Xs) 15 ml PRN AFTMEALHC PRN PO DYSPEPSIA; Start 03/08/18 at 03:45 Magnesium Hydroxide (Milk Of Magnesia) 2,400 mg PRN QHS PRN PO CONSTIPATION Last administered on 03/16/18at 20:12; Start 03/08/18 at 03:45 Info (Anti-Coagulation Monitoring By Pharmacy) 1 each PRN DAILY PRN MC SEE COMMENTS; Start 03/08/18 at 05:00; Status Cancel Levothyroxine Sodium (Synthroid) 75 mcg DAILY06 PO Last administered on 06:22; Start 03/09/18 at 06:00 Trazodone HCl (Desyrel) 50 mg QHS PO Last administered on 03/29/18 19:27; Start 03/08/18 at 21:00 Trazodone HCl (Desyrel) 50 mg PRN QHS PRN PO Insomnia Last administered on 03/14at 00:39; Start 03/08/18 at 19:30 Cefpodoxime Proxetil (Vantin) 200 mg BID PO Last administered on 03/18/18 09: 32; Start 03/09/18 at 21:00; Stop 03/18/18 at 10:23; Status DC Lactobacillus Rhamnosus (Culturelle) 1 cap BID PO Last administered on 19:26; Start 03/10/18 at 09:00 Ropinirole HCl (Requip) 0.5 mg TID PO Last administered on 03/14/18 09:00; Start 03/10/18 at 14:00; Stop 03/14/18 at 12:28; Status DC Divalproex Sodium (Depakote Sprinkles) 250 mg HS PO Last administered on 19:38; Start 03/11/18 at 21:00; Stop 03/14/18 at 11:08; Status DC Quetiapine Fumarate (SEROquel) 100 mg HS PO Last administered on 03/13/18 19: 38; Start 03/11/18 at 21:00; Stop 03/14/18 at 11:08; Status DC Venlafaxine HCl (Effexor) 37.5 mg BID PO Last administered on 03/16/18 20:12; Start 03/11/18 at 21:00; Stop 03/16/18 at 21:20; Status DC Ropinirole HCl (Requip) 1 mg TID PO Last administered on 03/29/18 19:26; Start 03/14/18 at 14:00 Divalproex Sodium (Depakote Sprinkles) 250 mg BID PO Last administered on 20:45; Start 03/14/18 at 21:00; Stop 03/17/18 at 23:52; Status DC Risperidone (RisperDAL) 0.25 mg DAILY PO Last administered on 03/29/18 08:09; Start 03/14/18 at 12:00 Risperidone (RisperDAL) 0.5 mg HS PO Last administered on 03/16/18at 20:12; Start 03/14/18 at 21:00; Stop 03/16/18 at 21:20; Status DC Risperidone (RisperDAL) 0.75 mg HS PO Last administered on 03/29/18 19:27; Start 03/17/18 at 21:00 Venlafaxine HCl (Effexor) 37.5 mg DAILY PO Last administered on 03/18/18at 09:31 ; Start 03/17/18 at 09:00; Stop 03/18/18 at 18:29; Status DC Divalproex Sodium (Depakote Sprinkles) 500 mg BID PO Last administered on 19:27; Start 03/18/18 at 09:00 Benztropine Mesylate (Cogentin) 0.5 mg QHS PO Last administered on 03/19/18at 21 :20; Start 03/18/18 at 21:00; Stop 03/20/18 at 18:48; Status DC Benztropine Mesylate (Cogentin) 1 mg QHS PO Last administered on 03/29/18 19: 26; Start 03/20/18 at 21:00 Nystatin (Mycostatin) 5 ml QID SWSW Last administered on 03/29/18at 19:27; Start 03/26/18 at 17:00 Active Scripts Active Reported Vitamin D3 (Cholecalciferol (Vitamin D3)) 1,000 Unit Tablet 1,000 Unit PO DAILY Vigamox (Moxifloxacin Hcl) 3 Ml Drops 1 Drop OD QID Venlafaxine Hcl Er (Venlafaxine Hcl) 150 Mg Cap.er.24h 150 Mg PO DAILY Timoptic (Timolol Maleate) 10 Ml Drops 1 Drop EACHEYE BID Seroquel (Quetiapine Fumarate) 50 Mg Tablet 50 Mg PO DAILY Seroquel (Quetiapine Fumarate) 100 Mg Tablet 150 Mg PO HS Senna-Docusate Sodium Tablet (Sennosides/Docusate Sodium) 1 Each Tablet 2 Tab PO DAILY Prednisolone Acetate 5 Ml Drops.susp 1 Drop OD DAILY Nystop (Nystatin) 60 Gm Powder 1 Jose A TP PRN BID PRN Artificial Tears Eye Drops (Dextran 70/Hypromellose) 15 Ml Drops 1 Drop EACHEYE QID Miralax (Polyethylene Glycol 3350) 17 Gm Powd.pack 17 Gm PO PRN Q8HRS PRN Artificial Tears Eye Oint (Mineral Oil/Petrolatum,White) 3.5 Gm Oint...g. 1 Drop OU HS Levothyroxine Sodium 75 Mcg Tablet 75 Mcg PO DAILYAC Latanoprost 2.5 Ml Drops 1 Drop EACHEYE QHS Gabapentin 100 Mg Capsule 100 Mg PO TID Excedrin Extra Strength Caplet (Aspirin/Acetaminophen/Caffeine) 1 Each Tablet 1 Tab PO PRN Q5HRS Eliquis (Apixaban) 5 Mg Tablet 5 Mg PO BID Sinemet 25-100 Mg Tablet (Carbidopa/Levodopa) 1 Each Tablet 1 Tab PO QID Brimonidine Tartrate 5 Ml Drops 1 Drop OU BID Atorvastatin Calcium 10 Mg Tablet 10 Mg PO QHS Tylenol (Acetaminophen) 325 Mg Tablet 650 Mg PO PRN Q8HRS PRN I have reviewed the current psychotropics carefully including drug interactions. Risk benefit ratio favors no change other than as noted in my dictated progress note. Diagnosis: Problems: (1) Anxiety disorder (2) Bipolar affective, mixed, sev w/ psych (3) Dementia, vascular, with delusions (4) Impulse control disorder HERMILO LEWIS MD Mar 29, 2018 20:45
[2018-03-29] MEDS: MINERAL OIL/PETROLATUM,WHITE OPHTH OINT 3.5GM TUBE. OU SCH (21:28)
[2018-03-29] MEDS: LATANOPROST 0.005% OPHTH SOLUTION 2.5ML BOTTLE. OU SCH (21:28)
[2018-03-30] MEDS: LEVOTHYROXINE 75 MCG TABLET PO SCH (05:58)
[2018-03-30 06:17] VITALS: BP 137/77
[2018-03-30 08:06] LABS: BASO % 1 % (0-3); EOS # 0.1 x10^3/uL (0.0-0.7); EOS % 3 % (0-3); HEMATOCRIT 38.6 % (36.0-47.0); HEMOGLOBIN 13.1 g/dL (12.0-15.5); LYMPH # 1.2 x10^3/uL (1.0-4.8); LYMPH % 27 % (24-48); MEAN CORPUSCULAR HEMOGLOBIN 31 pg (25-35); MEAN CORPUSCULAR HGB CONC 34 g/dL (31-37); MEAN CORPUSCULAR VOLUME 92 fL (79-100); MONO # 0.5 x10^3/uL (0.0-1.1); MONO % 12 % (0-9); NEUT # 2.6 x10^3uL (1.8-7.7); NEUT % 58 % (31-73); PLATELET COUNT 270 x10^3/uL (140-400); RED BLOOD COUNT 4.17 x10^6/uL (3.50-5.40); RED CELL DISTRIBUTION WIDTH 13.7 % (11.5-14.5); WHITE BLOOD COUNT 4.5 x10^3/uL (4.0-11.0)
[2018-03-30] MEDS: LACTOBACILLUS RHAMNOSUS GG 1 CAPSULE. PO SCH ×2 (08:20→19:18)
[2018-03-30] MEDS: APIXABAN 5 MG TABLET. PO SCH ×2 (08:20→19:19)
[2018-03-30] MEDS: GABAPENTIN 100 MG CAPSULE. PO SCH ×3 (08:20→19:19)
[2018-03-30] MEDS: rOPINIRole 1 MG TABLET. PO SCH ×3 (08:20→19:19)
[2018-03-30] MEDS: DIVALPROEX 125 MG CAP.SPRINK PO SCH ×2 (08:21→19:19)
[2018-03-30] MEDS: SENNOSIDES/DOCUSATE 8.6/50MG TABLET. PO SCH (08:21)
[2018-03-30] MEDS: CHOLECALCIFEROL (VITAMIN D3) 1,000 UNIT TABLET PO SCH (08:21)
[2018-03-30] MEDS: CARBIDOPA/LEVODOPA 25/100MG TABLET PO SCH ×4 (08:21→19:19)
[2018-03-30] MEDS: risperiDONE 0.25 MG TABLET. PO SCH ×2 (08:21→19:19)
[2018-03-30] MEDS: NYSTATIN 100,000 UNITS/ML ORAL SUSPENSION 60ML BOTTLE. SWSW SCH ×4 (08:22→19:23)
[2018-03-30] MEDS: BRIMONIDINE 0.2% OPHTH SOLUTION 5ML BOTTLE. OU SCH ×2 (08:23→19:25)
[2018-03-30] MEDS: MOXIFLOXACIN 0.5% OPHTH SOLUTION 3ML BOTTLE. OD SCH ×4 (08:23→19:25)
[2018-03-30] MEDS: POLYVINYL ALCOHOL 1.4% OPHTH SOLUTION 15ML BOTTLE. OU SCH ×4 (08:23→19:26)
[2018-03-30] MEDS: TIMOLOL 0.5% OPHTH SOLUTION 5ML BOTTLE. OU SCH ×2 (08:24→19:25)
[2018-03-30] MEDS: prednisoLONE ACETATE 1% OPHTH SUSPENSION 5ML BOTTLE. OD SCH (08:25)
[2018-03-30 08:26] LABS: ALBUMIN 2.8 g/dL (3.4-5.0); ALBUMIN/GLOBULIN RATIO 0.8 (1.0-1.7); ALK PHOS 82 U/L (46-116); ALT (SGPT) 13 U/L (14-59); ANION GAP 3 (6-14); AST (SGOT) 18 U/L (15-37); BLOOD UREA NITROGEN 18 mg/dL (7-20); BUN/CREATININE RATIO 26 (6-20); CALCIUM 9.2 mg/dL (8.5-10.1); CARBON DIOXIDE 31 mmol/L (21-32); CHLORIDE 106 mmol/L (98-107); CREATININE 0.7 mg/dL (0.6-1.0); GFR 85.4; GLUCOSE 96 mg/dL (70-99); SODIUM 140 mmol/L (136-145); TOTAL BILIRUBIN 0.3 mg/dL (0.2-1.0); TOTAL PROTEIN 6.4 g/dL (6.4-8.2)
[2018-03-30 08:28] LABS: VAL ACID 69 mcg/mL (50-100)
--- NOTE | 2018-03-30 11:28 | PN ---
DATE: 03/27/2018 This is a late entry for 03/27/2018 and covers elements not covered in my initial note. SUBJECTIVE: I met with the patient in the evening. The patient slept 7 hours previous evening. Appears less manic, less pressure of speech. REVIEW OF SYSTEMS: Ambulation impaired, in wheelchair. No CV, , pulmonary, eye, ENT system symptoms on review. MENTAL STATUS EXAM: Oriented to herself and situation. Speech coherent, still somewhat rapid. Head bent forward, but easier to understand, able to slow her down better than before. Abstraction fair, computation impaired, language function intact. Attention span short. Otherwise, she is quite organized in what she says but says it so rapidly, part of ongoing bev, but it is improving. LABORATORY DATA: Reviewed. IMPRESSION: Unchanged from initial note. PLAN: No change from initial note. Valproic acid level is 69. I have reviewed records from [facility]. Make further adjustments as clinically indicated. HERMILO LEWIS MD DR: LIZZETH/david JOB#: [id number] / [id number]
--- NOTE | 2018-03-30 11:28 | PN ---
DATE: 03/28/2018 PSYCHIATRIC PROGRESS NOTE This is a late entry 03/28/2018, covers elements not covered in my initial note. SUBJECTIVE: I met with the patient in the evening, staffed at treatment team meeting with the entire team in the morning, reviewed her history, diagnoses progress, medications, discharge plans. The patient slept 5-3/4 hours previous evening, cooperative, compliant. Her chanting behaviors are much better. Drooling is much improved. Appetite is fair. REVIEW OF SYSTEMS: Ambulation impaired, in wheelchair. No CV, , pulmonary, eye system symptoms on review. MENTAL STATUS EXAM: Reasonably oriented. Speech is coherent, still pressured. Abstraction fair, computation impaired, language function intact. Mood and affect lability is improved. IMPRESSION: Unchanged from initial note. PLAN: Continue psychotropics from my initial note. MAN Dewayne LEWIS MD DR: LIZZETH/david JOB#: [id number] / [id number]
[2018-03-30] MEDS: ACETAMINOPHEN 325 MG TABLET PO PRN (15:47)
[2018-03-30 16:12] VITALS: BP 123/66
[2018-03-30] MEDS: BENZTROPINE MESYLATE 1 MG TABLET PO SCH (19:18)
[2018-03-30] MEDS: traZODone 50 MG TABLET. PO SCH (19:19)
[2018-03-30] MEDS: ATORVASTATIN CALCIUM 10 MG TABLET. PO SCH (19:19)
[2018-03-30] MEDS: MINERAL OIL/PETROLATUM,WHITE OPHTH OINT 3.5GM TUBE. OU SCH (19:24)
[2018-03-30] MEDS: LATANOPROST 0.005% OPHTH SOLUTION 2.5ML BOTTLE. OU SCH (19:25)
--- NOTE | 2018-03-30 22:50 | PDOC ---
Exam Note: Massimo Note: Please also refer to the separate dictated note~for this date of service dictated separately.~Patient seen individually. Discussed the patient with Nursing staff reviewed the chart.~Reviewed interim history and current functioning. Reviewed vital signs,~Labs/ Radiology~and current medications noted below. Continue current treatment with the changes noted in the dictated addendum note Assessment: Vital Signs: Vital Signs Date Time Temp Pulse Resp B/P (MAP) Pulse Ox O2 Delivery O2 Flow Rate FiO2 03/30/18 16:12 97.9 63 18 123/66 (85) 03/30/18 06:17 100 03/27/18 16:27 Room Air I&O Intake and Output 03/30/18 07:00 Intake Total 1210 ml Balance 1210 ml Intake Oral 1210 ml # Voids 1 Labs: Laboratory Tests Test 03/30/18 07:40 White Blood Count 4.5 x10^3/uL (4.0-11.0) Red Blood Count 4.17 x10^6/uL (3.50-5.40) Hemoglobin 13.1 g/dL (12.0-15.5) Hematocrit 38.6 % (36.0-47.0) Mean Corpuscular Volume 92 fL (79-100) Mean Corpuscular Hemoglobin 31 pg (25-35) Mean Corpuscular Hemoglobin Concent 34 g/dL (31-37) Red Cell Distribution Width 13.7 % (11.5-14.5) Platelet Count 270 x10^3/uL (140-400) Neutrophils (%) (Auto) 58 % (31-73) Lymphocytes (%) (Auto) 27 % (24-48) Monocytes (%) (Auto) 12 % (0-9) H Eosinophils (%) (Auto) 3 % (0-3) Basophils (%) (Auto) 1 % (0-3) Neutrophils # (Auto) 2.6 x10^3uL (1.8-7.7) Lymphocytes # (Auto) 1.2 x10^3/uL (1.0-4.8) Monocytes # (Auto) 0.5 x10^3/uL (0.0-1.1) Eosinophils # (Auto) 0.1 x10^3/uL (0.0-0.7) Basophils # (Auto) 0.0 x10^3/uL (0.0-0.2) Sodium Level 140 mmol/L (136-145) Potassium Level 4.0 mmol/L (3.5-5.1) Chloride Level 106 mmol/L (98-107) Carbon Dioxide Level 31 mmol/L (21-32) Anion Gap 3 (6-14) L Blood Urea Nitrogen 18 mg/dL (7-20) Creatinine 0.7 mg/dL (0.6-1.0) Estimated GFR (Cockcroft-Gault) 85.4 BUN/Creatinine Ratio 26 (6-20) H Glucose Level 96 mg/dL (70-99) Calcium Level 9.2 mg/dL (8.5-10.1) Total Bilirubin 0.3 mg/dL (0.2-1.0) Aspartate Amino Transferase (AST) 18 U/L (15-37) Alanine Aminotransferase (ALT) 13 U/L (14-59) L Alkaline Phosphatase 82 U/L (46-116) Total Protein 6.4 g/dL (6.4-8.2) Albumin 2.8 g/dL (3.4-5.0) L Albumin/Globulin Ratio 0.8 (1.0-1.7) L Valproic Acid Level 69 mcg/mL (50-100) Valproic Acid Last Dose Date 03/29/2018 Valproic Acid Last Dose Time 2100 Current Medications: Meds: Current Medications Olanzapine (ZyPREXA ZYDIS) 2.5 mg PRN Q2HR PRN PO Psychosis Last administered on 03/19/18at 08:52; Start 03/08/18 at 03:45 Acetaminophen (Tylenol) 650 mg PRN Q8HRS PRN PO PAIN / TEMP; Start 03/08/18 at 03:45; Status UNV Brimonidine Tartrate (Alphagan) 1 drop BID OU Last administered on 03/30/18 19 :25; Start 03/08/18 at 09:00 Carbidopa/Levodopa (Sinemet 25/100) 1 tab QID PO Last administered on 19:19; Start 03/08/18 at 09:00 Vitamin D (Vitamin D3) 1,000 unit DAILY PO Last administered on 03/30/18at 08:21 ; Start 03/08/18 at 09:00 Gabapentin (Neurontin) 100 mg TID PO Last administered on 03/30/18 19:19; Start 03/08/18 at 09:00 Levothyroxine Sodium (Synthroid) 75 mcg DAILYAC PO Last administered on 10:53; Start 03/08/18 at 07:30; Stop 03/08/18 at 11:19; Status DC Multi-Ingred Cream/Lotion/Oil/ Oint (Artificial Tears Eye Ointment) 1 jose a HS OU Last administered on 03/30/18 19:24; Start 03/08/18 at 21:00 Moxifloxacin HCl (Vigamox) 1 drop QID OD Last administered on 03/30/18 19:25; Start 03/08/18 at 09:00; Stop 03/30/18 at 21:05; Status DC Nystatin (Nystop) 1 jose a PRN BID PRN TP RASH Last administered on 03/28/18 11: 01; Start 03/08/18 at 03:45 Prednisolone Acetate (Pred Forte) 1 drop DAILY OD Last administered on 08:25; Start 03/08/18 at 09:00; Stop 03/30/18 at 09:06; Status DC Senna/Docusate Sodium (Senna Plus) 2 tab DAILY PO Last administered on 08:21; Start 03/08/18 at 09:00 Apixaban (Eliquis) 5 mg BID PO Last administered on 03/30/18 19:19; Start 03/08 at 09:00 Acetaminophen/ Aspirin/Caffeine (Excedrin Migraine) 1 tab PRN Q6HRS PRN PO MIGRAINE HEADACHE Last administered on 03/24/18 19:25; Start 03/08/18 at 04:00 Atorvastatin Calcium (Lipitor) 10 mg QHS PO Last administered on 03/30/18 19: 19; Start 03/08/18 at 21:00 Artificial Tears (Artificial Tears) 1 drop QID OU Last administered on 19:26; Start 03/08/18 at 09:00 Latanoprost (Xalatan) 1 drop QHS OU Last administered on 03/30/18 19:25; Start 03/08/18 at 21:00 Polyethylene Glycol (miraLAX) 17 gm PRN Q8HRS PRN PO CONSTIPATION Last administered on 03/17/18 05:46; Start 03/08/18 at 09:00 Timolol Maleate (Timoptic 0.5% [facility]) 1 drop BID OU Last administered on 19:25; Start 03/08/18 at 09:00 Quetiapine Fumarate (SEROquel) 50 mg DAILY PO Last administered on 03/14/18 09 :00; Start 03/08/18 at 09:00; Stop 03/14/18 at 11:08; Status DC Quetiapine Fumarate (SEROquel) 150 mg QHS PO Last administered on 03/10/18 20: 42; Start 03/08/18 at 21:00; Stop 03/11/18 at 18:40; Status DC Venlafaxine HCl (Effexor) 50 mg TID PO Last administered on 03/11/18 14:31; Start 03/08/18 at 09:00; Stop 03/11/18 at 18:40; Status DC Acetaminophen (Tylenol) 650 mg PRN Q6HRS PRN PO PAIN / TEMP Last administered on 03/30/18 15:47; Start 03/08/18 at 03:45 Multi-Ingredient Ointment (Analgesic [place]) 1 jose a PRN QID PRN TP MUSCLE PAIN Last administered on 03/19/18 08:52; Start 03/08/18 at 03:45 Al Hydroxide/Mg Hydroxide (Mylanta Plus Xs) 15 ml PRN AFTMEALHC PRN PO DYSPEPSIA; Start 03/08/18 at 03:45 Magnesium Hydroxide (Milk Of Magnesia) 2,400 mg PRN QHS PRN PO CONSTIPATION Last administered on 03/16/18 20:12; Start 03/08/18 at 03:45 Info (Anti-Coagulation Monitoring By Pharmacy) 1 each PRN DAILY PRN MC SEE COMMENTS; Start 03/08/18 at 05:00; Status Cancel Levothyroxine Sodium (Synthroid) 75 mcg DAILY06 PO Last administered on 05:58; Start 03/09/18 at 06:00 Trazodone HCl (Desyrel) 50 mg QHS PO Last administered on 03/30/18 19:19; Start 03/08/18 at 21:00 Trazodone HCl (Desyrel) 50 mg PRN QHS PRN PO Insomnia Last administered on 03/14at 00:39; Start 03/08/18 at 19:30 Cefpodoxime Proxetil (Vantin) 200 mg BID PO Last administered on 03/18/18at 09: 32; Start 03/09/18 at 21:00; Stop 03/18/18 at 10:23; Status DC Lactobacillus Rhamnosus (Culturelle) 1 cap BID PO Last administered on 19:18; Start 03/10/18 at 09:00 Ropinirole HCl (Requip) 0.5 mg TID PO Last administered on 03/14/18at 09:00; Start 03/10/18 at 14:00; Stop 03/14/18 at 12:28; Status DC Divalproex Sodium (Depakote Sprinkles) 250 mg HS PO Last administered on at 19:38; Start 03/11/18 at 21:00; Stop 03/14/18 at 11:08; Status DC Quetiapine Fumarate (SEROquel) 100 mg HS PO Last administered on 03/13/18at 19: 38; Start 03/11/18 at 21:00; Stop 03/14/18 at 11:08; Status DC Venlafaxine HCl (Effexor) 37.5 mg BID PO Last administered on 03/16/18 20:12; Start 03/11/18 at 21:00; Stop 03/16/18 at 21:20; Status DC Ropinirole HCl (Requip) 1 mg TID PO Last administered on 03/30/18 19:19; Start 03/14/18 at 14:00 Divalproex Sodium (Depakote Sprinkles) 250 mg BID PO Last administered on at 20:45; Start 03/14/18 at 21:00; Stop 03/17/18 at 23:52; Status DC Risperidone (RisperDAL) 0.25 mg DAILY PO Last administered on 03/30/18at 08:21; Start 03/14/18 at 12:00 Risperidone (RisperDAL) 0.5 mg HS PO Last administered on 03/16/18at 20:12; Start 03/14/18 at 21:00; Stop 03/16/18 at 21:20; Status DC Risperidone (RisperDAL) 0.75 mg HS PO Last administered on 03/30/18at 19:19; Start 03/17/18 at 21:00 Venlafaxine HCl (Effexor) 37.5 mg DAILY PO Last administered on 03/18/18at 09:31 ; Start 03/17/18 at 09:00; Stop 03/18/18 at 18:29; Status DC Divalproex Sodium (Depakote Sprinkles) 500 mg BID PO Last administered on at 19:19; Start 03/18/18 at 09:00 Benztropine Mesylate (Cogentin) 0.5 mg QHS PO Last administered on 03/19/18at 21 :20; Start 03/18/18 at 21:00; Stop 03/20/18 at 18:48; Status DC Benztropine Mesylate (Cogentin) 1 mg QHS PO Last administered on 03/30/18at 19: 18; Start 03/20/18 at 21:00 Nystatin (Mycostatin) 5 ml QID SWSW Last administered on 03/30/18at 19:23; Start 03/26/18 at 17:00 Active Scripts Active Reported Vitamin D3 (Cholecalciferol (Vitamin D3)) 1,000 Unit Tablet 1,000 Unit PO DAILY Vigamox (Moxifloxacin Hcl) 3 Ml Drops 1 Drop OD QID Venlafaxine Hcl Er (Venlafaxine Hcl) 150 Mg Cap.er.24h 150 Mg PO DAILY Timoptic (Timolol Maleate) 10 Ml Drops 1 Drop EACHEYE BID Seroquel (Quetiapine Fumarate) 50 Mg Tablet 50 Mg PO DAILY Seroquel (Quetiapine Fumarate) 100 Mg Tablet 150 Mg PO HS Senna-Docusate Sodium Tablet (Sennosides/Docusate Sodium) 1 Each Tablet 2 Tab PO DAILY Prednisolone Acetate 5 Ml Drops.susp 1 Drop OD DAILY Nystop (Nystatin) 60 Gm Powder 1 Jose A TP PRN BID PRN Artificial Tears Eye Drops (Dextran 70/Hypromellose) 15 Ml Drops 1 Drop EACHEYE QID Miralax (Polyethylene Glycol 3350) 17 Gm Powd.pack 17 Gm PO PRN Q8HRS PRN Artificial Tears Eye Oint (Mineral Oil/Petrolatum,White) 3.5 Gm Oint...g. 1 Drop OU HS Levothyroxine Sodium 75 Mcg Tablet 75 Mcg PO DAILYAC Latanoprost 2.5 Ml Drops 1 Drop EACHEYE QHS Gabapentin 100 Mg Capsule 100 Mg PO TID Excedrin Extra Strength Caplet (Aspirin/Acetaminophen/Caffeine) 1 Each Tablet 1 Tab PO PRN Q5HRS Eliquis (Apixaban) 5 Mg Tablet 5 Mg PO BID Sinemet 25-100 Mg Tablet (Carbidopa/Levodopa) 1 Each Tablet 1 Tab PO QID Brimonidine Tartrate 5 Ml Drops 1 Drop OU BID Atorvastatin Calcium 10 Mg Tablet 10 Mg PO QHS Tylenol (Acetaminophen) 325 Mg Tablet 650 Mg PO PRN Q8HRS PRN I have reviewed the current psychotropics carefully including drug interactions. Risk benefit ratio favors no change other than as noted in my dictated progress note. Diagnosis: Problems: (1) Anxiety disorder (2) Bipolar affective, mixed, sev w/ psych (3) Dementia, vascular, with delusions (4) Impulse control disorder HERMILO LEWIS MD Mar 30, 2018 22:50
[2018-03-31] MEDS ORDERED: BENZ1TAB5 PO (00:34)
[2018-03-31] MEDS ORDERED: DIVA125C PO (00:35)
[2018-03-31] MEDS ORDERED: LACT1CAP21 PO (00:36)
[2018-03-31] MEDS ORDERED: MAGN2400 PO (00:37)
[2018-03-31] MEDS ORDERED: MAG30ORA2 PO (00:37)
[2018-03-31] MEDS ORDERED: METH29OI TP (00:38)
[2018-03-31] MEDS ORDERED: NYST1000 SWSW (00:39)
[2018-03-31] MEDS ORDERED: ROPI1TAB2 PO (00:40)
[2018-03-31] MEDS ORDERED: OLAN5TAB5 PO (00:40)
[2018-03-31] MEDS ORDERED: RISP0.5T3 PO ×2 (00:43)
[2018-03-31] MEDS ORDERED: TRAZ-85 PO ×2 (00:44)
[2018-03-31 06:11] VITALS: BP 120/77
[2018-03-31] MEDS: LEVOTHYROXINE 75 MCG TABLET PO SCH (06:11)
[2018-03-31] MEDS: BRIMONIDINE 0.2% OPHTH SOLUTION 5ML BOTTLE. OU SCH ×2 (09:01→20:07)
[2018-03-31] MEDS: TIMOLOL 0.5% OPHTH SOLUTION 5ML BOTTLE. OU SCH ×2 (09:02→20:07)
[2018-03-31] MEDS: rOPINIRole 1 MG TABLET. PO SCH ×3 (09:02→20:02)
[2018-03-31] MEDS: LACTOBACILLUS RHAMNOSUS GG 1 CAPSULE. PO SCH ×2 (09:02→20:02)
[2018-03-31] MEDS: DIVALPROEX 125 MG CAP.SPRINK PO SCH ×2 (09:02→20:00)
[2018-03-31] MEDS: POLYVINYL ALCOHOL 1.4% OPHTH SOLUTION 15ML BOTTLE. OU SCH ×4 (09:02→20:04)
[2018-03-31] MEDS: GABAPENTIN 100 MG CAPSULE. PO SCH ×3 (09:02→20:02)
[2018-03-31] MEDS: APIXABAN 5 MG TABLET. PO SCH ×2 (09:02→20:03)
[2018-03-31] MEDS: CARBIDOPA/LEVODOPA 25/100MG TABLET PO SCH ×4 (09:03→20:03)
[2018-03-31] MEDS: CHOLECALCIFEROL (VITAMIN D3) 1,000 UNIT TABLET PO SCH (09:03)
[2018-03-31] MEDS: SENNOSIDES/DOCUSATE 8.6/50MG TABLET. PO SCH (09:03)
[2018-03-31] MEDS: risperiDONE 0.25 MG TABLET. PO SCH ×2 (09:03→20:03)
[2018-03-31] MEDS: NYSTATIN 100,000 UNITS/ML ORAL SUSPENSION 60ML BOTTLE. SWSW SCH ×4 (09:03→20:04)
[2018-03-31 16:17] VITALS: BP 169/85
[2018-03-31] MEDS: traZODone 50 MG TABLET. PO SCH (20:03)
[2018-03-31] MEDS: ATORVASTATIN CALCIUM 10 MG TABLET. PO SCH (20:03)
[2018-03-31] MEDS: BENZTROPINE MESYLATE 1 MG TABLET PO SCH (20:04)
[2018-03-31] MEDS: LATANOPROST 0.005% OPHTH SOLUTION 2.5ML BOTTLE. OU SCH (20:05)
[2018-03-31] MEDS: MINERAL OIL/PETROLATUM,WHITE OPHTH OINT 3.5GM TUBE. OU SCH (20:07)
--- NOTE | 2018-03-31 20:59 | PDOC ---
Exam Note: Massimo Note: Please also refer to the separate dictated note~for this date of service dictated separately.~Patient seen individually. Discussed the patient with Nursing staff reviewed the chart.~Reviewed interim history and current functioning. Reviewed vital signs,~Labs/ Radiology~and current medications noted below. Continue current treatment with the changes noted in the dictated addendum note Assessment: Vital Signs: Vital Signs Date Time Temp Pulse Resp B/P (MAP) Pulse Ox O2 Delivery O2 Flow Rate FiO2 03/31/18 16:17 98.0 64 19 169/85 (113) 96 03/27/18 16:27 Room Air I&O Intake and Output 03/31/18 07:00 Intake Total 920 ml Output Total 1600 ml Balance -680 ml Intake Oral 920 ml Output Urine Total 1600 ml # Voids 1 Current Medications: Meds: Current Medications Olanzapine (ZyPREXA ZYDIS) 2.5 mg PRN Q2HR PRN PO Psychosis Last administered on 03/19/18 08:52; Start 03/08/18 at 03:45 Acetaminophen (Tylenol) 650 mg PRN Q8HRS PRN PO PAIN / TEMP; Start 03/08/18 at 03:45; Status UNV Brimonidine Tartrate (Alphagan) 1 drop BID OU Last administered on 03/31/18 20 :07; Start 03/08/18 at 09:00 Carbidopa/Levodopa (Sinemet 25/100) 1 tab QID PO Last administered on 20:03; Start 03/08/18 at 09:00 Vitamin D (Vitamin D3) 1,000 unit DAILY PO Last administered on 03/31/18at 09:03 ; Start 03/08/18 at 09:00 Gabapentin (Neurontin) 100 mg TID PO Last administered on 03/31/18 20:02; Start 03/08/18 at 09:00 Levothyroxine Sodium (Synthroid) 75 mcg DAILYAC PO Last administered on at 10:53; Start 03/08/18 at 07:30; Stop 03/08/18 at 11:19; Status DC Multi-Ingred Cream/Lotion/Oil/ Oint (Artificial Tears Eye Ointment) 1 jose a HS OU Last administered on 03/31/18 20:07; Start 03/08/18 at 21:00 Moxifloxacin HCl (Vigamox) 1 drop QID OD Last administered on 03/30/18 19:25; Start 03/08/18 at 09:00; Stop 03/30/18 at 21:05; Status DC Nystatin (Nystop) 1 jose a PRN BID PRN TP RASH Last administered on 03/28/18 11: 01; Start 03/08/18 at 03:45 Prednisolone Acetate (Pred Forte) 1 drop DAILY OD Last administered on 08:25; Start 03/08/18 at 09:00; Stop 03/30/18 at 09:06; Status DC Senna/Docusate Sodium (Senna Plus) 2 tab DAILY PO Last administered on 09:03; Start 03/08/18 at 09:00 Apixaban (Eliquis) 5 mg BID PO Last administered on 03/31/18 20:03; Start 03/08 at 09:00 Acetaminophen/ Aspirin/Caffeine (Excedrin Migraine) 1 tab PRN Q6HRS PRN PO MIGRAINE HEADACHE Last administered on 03/24/18 19:25; Start 03/08/18 at 04:00 Atorvastatin Calcium (Lipitor) 10 mg QHS PO Last administered on 03/31/18 20: 03; Start 03/08/18 at 21:00 Artificial Tears (Artificial Tears) 1 drop QID OU Last administered on 20:04; Start 03/08/18 at 09:00 Latanoprost (Xalatan) 1 drop QHS OU Last administered on 03/31/18 20:05; Start 03/08/18 at 21:00 Polyethylene Glycol (miraLAX) 17 gm PRN Q8HRS PRN PO CONSTIPATION Last administered on 03/17/18 05:46; Start 03/08/18 at 09:00 Timolol Maleate (Timoptic 0.5% [facility]) 1 drop BID OU Last administered on 20:07; Start 03/08/18 at 09:00 Quetiapine Fumarate (SEROquel) 50 mg DAILY PO Last administered on 03/14/18 09 :00; Start 03/08/18 at 09:00; Stop 03/14/18 at 11:08; Status DC Quetiapine Fumarate (SEROquel) 150 mg QHS PO Last administered on 03/10/18 20: 42; Start 03/08/18 at 21:00; Stop 03/11/18 at 18:40; Status DC Venlafaxine HCl (Effexor) 50 mg TID PO Last administered on 03/11/18 14:31; Start 03/08/18 at 09:00; Stop 03/11/18 at 18:40; Status DC Acetaminophen (Tylenol) 650 mg PRN Q6HRS PRN PO PAIN / TEMP Last administered on 03/30/18at 15:47; Start 03/08/18 at 03:45 Multi-Ingredient Ointment (Analgesic [place]) 1 jose a PRN QID PRN TP MUSCLE PAIN Last administered on 03/19/18 08:52; Start 03/08/18 at 03:45 Al Hydroxide/Mg Hydroxide (Mylanta Plus Xs) 15 ml PRN AFTMEALHC PRN PO DYSPEPSIA; Start 03/08/18 at 03:45 Magnesium Hydroxide (Milk Of Magnesia) 2,400 mg PRN QHS PRN PO CONSTIPATION Last administered on 03/16/18 20:12; Start 03/08/18 at 03:45 Info (Anti-Coagulation Monitoring By Pharmacy) 1 each PRN DAILY PRN MC SEE COMMENTS; Start 03/08/18 at 05:00; Status Cancel Levothyroxine Sodium (Synthroid) 75 mcg DAILY06 PO Last administered on at 06:11; Start 03/09/18 at 06:00 Trazodone HCl (Desyrel) 50 mg QHS PO Last administered on 03/31/18at 20:03; Start 03/08/18 at 21:00 Trazodone HCl (Desyrel) 50 mg PRN QHS PRN PO Insomnia Last administered on 03/14at 00:39; Start 03/08/18 at 19:30 Cefpodoxime Proxetil (Vantin) 200 mg BID PO Last administered on 03/18/18at 09: 32; Start 03/09/18 at 21:00; Stop 03/18/18 at 10:23; Status DC Lactobacillus Rhamnosus (Culturelle) 1 cap BID PO Last administered on at 20:02; Start 03/10/18 at 09:00 Ropinirole HCl (Requip) 0.5 mg TID PO Last administered on 03/14/18at 09:00; Start 03/10/18 at 14:00; Stop 03/14/18 at 12:28; Status DC Divalproex Sodium (Depakote Sprinkles) 250 mg HS PO Last administered on at 19:38; Start 03/11/18 at 21:00; Stop 03/14/18 at 11:08; Status DC Quetiapine Fumarate (SEROquel) 100 mg HS PO Last administered on 03/13/18 19: 38; Start 03/11/18 at 21:00; Stop 03/14/18 at 11:08; Status DC Venlafaxine HCl (Effexor) 37.5 mg BID PO Last administered on 03/16/18at 20:12; Start 03/11/18 at 21:00; Stop 03/16/18 at 21:20; Status DC Ropinirole HCl (Requip) 1 mg TID PO Last administered on 03/31/18 20:02; Start 03/14/18 at 14:00 Divalproex Sodium (Depakote Sprinkles) 250 mg BID PO Last administered on at 20:45; Start 03/14/18 at 21:00; Stop 03/17/18 at 23:52; Status DC Risperidone (RisperDAL) 0.25 mg DAILY PO Last administered on 03/31/18 09:03; Start 03/14/18 at 12:00 Risperidone (RisperDAL) 0.5 mg HS PO Last administered on 03/16/18at 20:12; Start 03/14/18 at 21:00; Stop 03/16/18 at 21:20; Status DC Risperidone (RisperDAL) 0.75 mg HS PO Last administered on 03/31/18 20:03; Start 03/17/18 at 21:00 Venlafaxine HCl (Effexor) 37.5 mg DAILY PO Last administered on 03/18/18at 09:31 ; Start 03/17/18 at 09:00; Stop 03/18/18 at 18:29; Status DC Divalproex Sodium (Depakote Sprinkles) 500 mg BID PO Last administered on at 20:00; Start 03/18/18 at 09:00 Benztropine Mesylate (Cogentin) 0.5 mg QHS PO Last administered on 03/19/18at 21 :20; Start 03/18/18 at 21:00; Stop 03/20/18 at 18:48; Status DC Benztropine Mesylate (Cogentin) 1 mg QHS PO Last administered on 03/31/18at 20: 04; Start 03/20/18 at 21:00 Nystatin (Mycostatin) 5 ml QID SWSW Last administered on 03/31/18at 20:04; Start 03/26/18 at 17:00 Active Scripts Active Reported Trazodone Hcl 50 Mg Tablet 50 Mg PO PRN QHS PRN Trazodone Hcl 50 Mg Tablet 50 Mg PO HS Risperidone 0.5 Mg Tablet 0.75 Mg PO HS Risperidone 0.5 Mg Tablet 0.25 Mg PO DAILY Ropinirole Hcl 1 Mg Tablet 1 Mg PO TID Zyprexa Zydis (Olanzapine) 5 Mg Tab.rapdis 2.5 Mg PO PRN Q2HR PRN Nystatin 100,000 Unit/1 Ml Oral.susp 5 Ml SWSW QID Analgesic Pinon (Methyl Salicylate/Menthol) 28 Gm Oint...g. 1 Jose A TP PRN QID PRN Milk Of Magnesia (Magnesium Hydroxide) 2,400 Mg/10 Ml Oral.susp 2,400 Mg PO PRN QHS PRN Mag-Al Plus Xs Suspension (Mag Hydrox/Al Hydrox/Simeth) 30 Ml Oral.susp 15 Ml PO PRN AFTMEALHC PRN Culturelle (Lactobacillus Rhamnosus Gg) 1 Each Capsule 1 Cap PO BID Depakote Sprinkle (Divalproex Sodium) 125 Mg Cap.sprink 500 Mg PO BID Benztropine Mesylate 1 Mg Tablet 1 Mg PO HS Vitamin D3 (Cholecalciferol (Vitamin D3)) 1,000 Unit Tablet 1,000 Unit PO DAILY Vigamox (Moxifloxacin Hcl) 3 Ml Drops 1 Drop OD QID Venlafaxine Hcl Er (Venlafaxine Hcl) 150 Mg Cap.er.24h 150 Mg PO DAILY Timoptic (Timolol Maleate) 10 Ml Drops 1 Drop EACHEYE BID Seroquel (Quetiapine Fumarate) 50 Mg Tablet 50 Mg PO DAILY Seroquel (Quetiapine Fumarate) 100 Mg Tablet 150 Mg PO HS Senna-Docusate Sodium Tablet (Sennosides/Docusate Sodium) 1 Each Tablet 2 Tab PO DAILY Prednisolone Acetate 5 Ml Drops.susp 1 Drop OD DAILY Nystop (Nystatin) 60 Gm Powder 1 Jose A TP PRN BID PRN Artificial Tears Eye Drops (Dextran 70/Hypromellose) 15 Ml Drops 1 Drop EACHEYE QID Miralax (Polyethylene Glycol 3350) 17 Gm Powd.pack 17 Gm PO PRN Q8HRS PRN Artificial Tears Eye Oint (Mineral Oil/Petrolatum,White) 3.5 Gm Oint...g. 1 Drop OU HS Levothyroxine Sodium 75 Mcg Tablet 75 Mcg PO DAILYAC Latanoprost 2.5 Ml Drops 1 Drop EACHEYE QHS Gabapentin 100 Mg Capsule 100 Mg PO TID Excedrin Extra Strength Caplet (Aspirin/Acetaminophen/Caffeine) 1 Each Tablet 1 Tab PO PRN Q5HRS Eliquis (Apixaban) 5 Mg Tablet 5 Mg PO BID Sinemet 25-100 Mg Tablet (Carbidopa/Levodopa) 1 Each Tablet 1 Tab PO QID Brimonidine Tartrate 5 Ml Drops 1 Drop OU BID Atorvastatin Calcium 10 Mg Tablet 10 Mg PO QHS Tylenol (Acetaminophen) 325 Mg Tablet 650 Mg PO PRN Q8HRS PRN I have reviewed the current psychotropics carefully including drug interactions. Risk benefit ratio favors no change other than as noted in my dictated progress note. Diagnosis: Problems: (1) Anxiety disorder (2) Bipolar affective, mixed, sev w/ psych (3) Dementia, vascular, with delusions (4) Impulse control disorder HERMILO LEWIS MD Mar 31, 2018 20:59
[2018-03-31] MEDS: ASA/APAP/CAFFEINE 250/250/65MG TABLET. PO PRN (21:29)
--- NOTE | 2018-04-01 00:32 | PN ---
DATE: 03/29/2018 This late entry, 03/29/2018, covers elements not covered in my initial note. SUBJECTIVE: I met with the patient in the evening. The patient slept 6-1/4 hours, sleeping during the day. We will check labs morning of 03/30/2018. Less yelling, less repetitive. REVIEW OF SYSTEMS: Ambulation impaired, in wheelchair. No CV, , pulmonary, eye, ENT system symptoms on review. MENTAL STATUS EXAM: Oriented to herself and situation. Speech still somewhat pressured. Abstraction fair, computation impaired, language function intact, somewhat obsessive. No suicidal or homicidal ideation. LABORATORY DATA: Reviewed. IMPRESSION: Bipolar I disorder, mixed. Rest unchanged. PLAN: Check labs morning of 03/30/2018 and adjust. MAN Dewayne LEWIS MD DR: LIZZETH/david JOB#: [id number] / [id number]
--- NOTE | 2018-04-01 00:35 | PN ---
DATE: 03/30/2018 This late entry, 03/30/2018, covers elements not covered in my initial note. SUBJECTIVE: I met with the patient in the evening. The patient slept 7-1/2 hours previous evening. Ambulation impaired, in wheelchair. She has rash under her breast, received nystatin powder. Pedal edema is worse. REVIEW OF SYSTEMS: Ambulation impaired, in wheelchair. No CV, , pulmonary, eye system symptoms on review. MENTAL STATUS EXAM: Oriented to herself and situation. Speech is coherent, pressured, less so than before. Abstraction fair, computation impaired, language function intact. Mood and affect showing improvement. LABORATORY DATA: Reviewed. PLAN: Repeat CBC, CMP, and valproic acid level. Adjust as clinically indicated. MAN Dewayne LEWIS MD DR: LIZZETH/david JOB#: [id number] / [id number]
[2018-04-01] MEDS: LEVOTHYROXINE 75 MCG TABLET PO SCH (05:58)
[2018-04-01 06:37] VITALS: BP 124/75
[2018-04-01] MEDS: POLYVINYL ALCOHOL 1.4% OPHTH SOLUTION 15ML BOTTLE. OU SCH ×2 (07:41→13:42)
[2018-04-01] MEDS: LACTOBACILLUS RHAMNOSUS GG 1 CAPSULE. PO SCH (07:41)
[2018-04-01] MEDS: TIMOLOL 0.5% OPHTH SOLUTION 5ML BOTTLE. OU SCH (07:41)
[2018-04-01] MEDS: BRIMONIDINE 0.2% OPHTH SOLUTION 5ML BOTTLE. OU SCH (07:41)
[2018-04-01] MEDS: DIVALPROEX 125 MG CAP.SPRINK PO SCH (07:41)
[2018-04-01] MEDS: risperiDONE 0.25 MG TABLET. PO SCH (07:42)
[2018-04-01] MEDS: APIXABAN 5 MG TABLET. PO SCH (07:42)
[2018-04-01] MEDS: GABAPENTIN 100 MG CAPSULE. PO SCH ×2 (07:42→13:25)
[2018-04-01] MEDS: CARBIDOPA/LEVODOPA 25/100MG TABLET PO SCH ×2 (07:42→13:26)
[2018-04-01] MEDS: CHOLECALCIFEROL (VITAMIN D3) 1,000 UNIT TABLET PO SCH (07:42)
[2018-04-01] MEDS: rOPINIRole 1 MG TABLET. PO SCH ×2 (07:42→13:26)
[2018-04-01] MEDS: SENNOSIDES/DOCUSATE 8.6/50MG TABLET. PO SCH (07:42)
[2018-04-01] MEDS: NYSTATIN 100,000 UNITS/ML ORAL SUSPENSION 60ML BOTTLE. SWSW SCH ×2 (07:43→13:26)
--- NOTE | 2018-04-01 22:11 | PDOC ---
Exam Note: Massimo Note: Please also refer to the separate dictated note~for this date of service dictated separately.~Patient seen individually. Discussed the patient with Nursing staff reviewed the chart.~Reviewed interim history and current functioning. Reviewed vital signs,~Labs/ Radiology~and current medications noted below. Continue current treatment with the changes noted in the dictated addendum note Assessment: Vital Signs: Vital Signs Date Time Temp Pulse Resp B/P (MAP) Pulse Ox O2 Delivery O2 Flow Rate FiO2 04/01/18 06:37 97.6 67 16 124/75 (91) 94 03/27/18 16:27 Room Air I&O Intake and Output 04/01/18 07:00 Intake Total 1320 ml Balance 1320 ml Intake Oral 1320 ml # Bowel Movements 1 Current Medications: Meds: Current Medications Olanzapine (ZyPREXA ZYDIS) 2.5 mg PRN Q2HR PRN PO Psychosis Last administered on 03/19/18at 08:52; Start 03/08/18 at 03:45; Stop 04/01/18 at 16:32; Status DC Acetaminophen (Tylenol) 650 mg PRN Q8HRS PRN PO PAIN / TEMP; Start 03/08/18 at 03:45; Status UNV Brimonidine Tartrate (Alphagan) 1 drop BID OU Last administered on 04/01/18at 07 :41; Start 03/08/18 at 09:00; Stop 04/01/18 at 16:32; Status DC Carbidopa/Levodopa (Sinemet 25/100) 1 tab QID PO Last administered on at 13:26; Start 03/08/18 at 09:00; Stop 04/01/18 at 16:32; Status DC Vitamin D (Vitamin D3) 1,000 unit DAILY PO Last administered on 04/01/18at 07:42 ; Start 03/08/18 at 09:00; Stop 04/01/18 at 16:32; Status DC Gabapentin (Neurontin) 100 mg TID PO Last administered on 04/01/18at 13:25; Start 03/08/18 at 09:00; Stop 04/01/18 at 16:32; Status DC Levothyroxine Sodium (Synthroid) 75 mcg DAILYAC PO Last administered on at 10:53; Start 03/08/18 at 07:30; Stop 03/08/18 at 11:19; Status DC Multi-Ingred Cream/Lotion/Oil/ Oint (Artificial Tears Eye Ointment) 1 jose a HS OU Last administered on 03/31/18at 20:07; Start 03/08/18 at 21:00; Stop 04/01/18 at 16:32; Status DC Moxifloxacin HCl (Vigamox) 1 drop QID OD Last administered on 03/30/18at 19:25; Start 03/08/18 at 09:00; Stop 03/30/18 at 21:05; Status DC Nystatin (Nystop) 1 jose a PRN BID PRN TP RASH Last administered on 03/28/18at 11: 01; Start 03/08/18 at 03:45; Stop 04/01/18 at 16:32; Status DC Prednisolone Acetate (Pred Forte) 1 drop DAILY OD Last administered on at 08:25; Start 03/08/18 at 09:00; Stop 03/30/18 at 09:06; Status DC Senna/Docusate Sodium (Senna Plus) 2 tab DAILY PO Last administered on at 07:42; Start 03/08/18 at 09:00; Stop 04/01/18 at 16:32; Status DC Apixaban (Eliquis) 5 mg BID PO Last administered on 04/01/18at 07:42; Start 03/08 at 09:00; Stop 04/01/18 at 16:32; Status DC Acetaminophen/ Aspirin/Caffeine (Excedrin Migraine) 1 tab PRN Q6HRS PRN PO MIGRAINE HEADACHE Last administered on 03/31/18at 21:29; Start 03/08/18 at 04:00; Stop 04/01/18 at 16:32; Status DC Atorvastatin Calcium (Lipitor) 10 mg QHS PO Last administered on 03/31/18at 20: 03; Start 03/08/18 at 21:00; Stop 04/01/18 at 16:32; Status DC Artificial Tears (Artificial Tears) 1 drop QID OU Last administered on at 13:42; Start 03/08/18 at 09:00; Stop 04/01/18 at 16:32; Status DC Latanoprost (Xalatan) 1 drop QHS OU Last administered on 03/31/18at 20:05; Start 03/08/18 at 21:00; Stop 04/01/18 at 16:32; Status DC Polyethylene Glycol (miraLAX) 17 gm PRN Q8HRS PRN PO CONSTIPATION Last administered on 03/17/18at 05:46; Start 03/08/18 at 09:00; Stop 04/01/18 at 16:32 ; Status DC Timolol Maleate (Timoptic 0.5% [facility]) 1 drop BID OU Last administered on at 07:41; Start 03/08/18 at 09:00; Stop 04/01/18 at 16:32; Status DC Quetiapine Fumarate (SEROquel) 50 mg DAILY PO Last administered on 03/14/18at 09 :00; Start 03/08/18 at 09:00; Stop 03/14/18 at 11:08; Status DC Quetiapine Fumarate (SEROquel) 150 mg QHS PO Last administered on 03/10/18at 20: 42; Start 03/08/18 at 21:00; Stop 03/11/18 at 18:40; Status DC Venlafaxine HCl (Effexor) 50 mg TID PO Last administered on 03/11/18at 14:31; Start 03/08/18 at 09:00; Stop 03/11/18 at 18:40; Status DC Acetaminophen (Tylenol) 650 mg PRN Q6HRS PRN PO PAIN / TEMP Last administered on 03/30/18at 15:47; Start 03/08/18 at 03:45; Stop 04/01/18 at 16:32; Status DC Multi-Ingredient Ointment (Analgesic [place]) 1 jose a PRN QID PRN TP MUSCLE PAIN Last administered on 03/19/18at 08:52; Start 03/08/18 at 03:45; Stop 04/01/18 at 16:32; Status DC Al Hydroxide/Mg Hydroxide (Mylanta Plus Xs) 15 ml PRN AFTMEALHC PRN PO DYSPEPSIA; Start 03/08/18 at 03:45; Stop 04/01/18 at 16:32; Status DC Magnesium Hydroxide (Milk Of Magnesia) 2,400 mg PRN QHS PRN PO CONSTIPATION Last administered on 03/16/18at 20:12; Start 03/08/18 at 03:45; Stop 04/01/18 at 16:32; Status DC Info (Anti-Coagulation Monitoring By Pharmacy) 1 each PRN DAILY PRN MC SEE COMMENTS; Start 03/08/18 at 05:00; Status Cancel Levothyroxine Sodium (Synthroid) 75 mcg DAILY06 PO Last administered on at 05:58; Start 03/09/18 at 06:00; Stop 04/01/18 at 16:32; Status DC Trazodone HCl (Desyrel) 50 mg QHS PO Last administered on 03/31/18at 20:03; Start 03/08/18 at 21:00; Stop 04/01/18 at 16:32; Status DC Trazodone HCl (Desyrel) 50 mg PRN QHS PRN PO Insomnia Last administered on 03/14at 00:39; Start 03/08/18 at 19:30; Stop 04/01/18 at 16:32; Status DC Cefpodoxime Proxetil (Vantin) 200 mg BID PO Last administered on 03/18/18at 09: 32; Start 03/09/18 at 21:00; Stop 03/18/18 at 10:23; Status DC Lactobacillus Rhamnosus (Culturelle) 1 cap BID PO Last administered on at 07:41; Start 03/10/18 at 09:00; Stop 04/01/18 at 16:32; Status DC Ropinirole HCl (Requip) 0.5 mg TID PO Last administered on 03/14/18at 09:00; Start 03/10/18 at 14:00; Stop 03/14/18 at 12:28; Status DC Divalproex Sodium (Depakote Sprinkles) 250 mg HS PO Last administered on 19:38; Start 03/11/18 at 21:00; Stop 03/14/18 at 11:08; Status DC Quetiapine Fumarate (SEROquel) 100 mg HS PO Last administered on 03/13/18at 19: 38; Start 03/11/18 at 21:00; Stop 03/14/18 at 11:08; Status DC Venlafaxine HCl (Effexor) 37.5 mg BID PO Last administered on 03/16/18at 20:12; Start 03/11/18 at 21:00; Stop 03/16/18 at 21:20; Status DC Ropinirole HCl (Requip) 1 mg TID PO Last administered on 04/01/18at 13:26; Start 03/14/18 at 14:00; Stop 04/01/18 at 16:32; Status DC Divalproex Sodium (Depakote Sprinkles) 250 mg BID PO Last administered on at 20:45; Start 03/14/18 at 21:00; Stop 03/17/18 at 23:52; Status DC Risperidone (RisperDAL) 0.25 mg DAILY PO Last administered on 04/01/18at 07:42; Start 03/14/18 at 12:00; Stop 04/01/18 at 16:32; Status DC Risperidone (RisperDAL) 0.5 mg HS PO Last administered on 03/16/18at 20:12; Start 03/14/18 at 21:00; Stop 03/16/18 at 21:20; Status DC Risperidone (RisperDAL) 0.75 mg HS PO Last administered on 03/31/18at 20:03; Start 03/17/18 at 21:00; Stop 04/01/18 at 16:32; Status DC Venlafaxine HCl (Effexor) 37.5 mg DAILY PO Last administered on 03/18/18at 09:31 ; Start 03/17/18 at 09:00; Stop 03/18/18 at 18:29; Status DC Divalproex Sodium (Depakote Sprinkles) 500 mg BID PO Last administered on at 07:41; Start 03/18/18 at 09:00; Stop 04/01/18 at 16:32; Status DC Benztropine Mesylate (Cogentin) 0.5 mg QHS PO Last administered on 03/19/18at 21 :20; Start 03/18/18 at 21:00; Stop 03/20/18 at 18:48; Status DC Benztropine Mesylate (Cogentin) 1 mg QHS PO Last administered on 03/31/18at 20: 04; Start 03/20/18 at 21:00; Stop 04/01/18 at 16:32; Status DC Nystatin (Mycostatin) 5 ml QID SWSW Last administered on 04/01/18at 13:26; Start 03/26/18 at 17:00; Stop 04/01/18 at 16:32; Status DC Active Scripts Active Reported Trazodone Hcl 50 Mg Tablet 50 Mg PO PRN QHS PRN May administer if first scheduled dose ineffective. Trazodone Hcl 50 Mg Tablet 50 Mg PO HS Risperidone 0.5 Mg Tablet 0.75 Mg PO HS Risperidone 0.5 Mg Tablet 0.25 Mg PO DAILY Ropinirole Hcl 1 Mg Tablet 1 Mg PO TID Zyprexa Zydis (Olanzapine) 5 Mg Tab.rapdis 2.5 Mg PO PRN Q2HR PRN MDD 15mg in 24 hours Nystatin 100,000 Unit/1 Ml Oral.susp 5 Ml SWSW QID Analgesic [place] (Methyl Salicylate/Menthol) 28 Gm Oint...g. 1 Jose A TP PRN QID PRN Milk Of Magnesia (Magnesium Hydroxide) 2,400 Mg/10 Ml Oral.susp 2,400 Mg PO PRN QHS PRN Mag-Al Plus Xs Suspension (Mag Hydrox/Al Hydrox/Simeth) 30 Ml Oral.susp 15 Ml PO PRN AFTMEALHC PRN Culturelle (Lactobacillus Rhamnosus Gg) 1 Each Capsule 1 Cap PO BID Depakote Sprinkle (Divalproex Sodium) 125 Mg Cap.sprink 500 Mg PO BID Benztropine Mesylate 1 Mg Tablet 1 Mg PO HS Vitamin D3 (Cholecalciferol (Vitamin D3)) 1,000 Unit Tablet 1,000 Unit PO DAILY Timoptic (Timolol Maleate) 10 Ml Drops 1 Drop EACHEYE BID Senna-Docusate Sodium Tablet (Sennosides/Docusate Sodium) 1 Each Tablet 2 Tab PO DAILY Nystop (Nystatin) 60 Gm Powder 1 Jose A TP BID Artificial Tears Eye Drops (Dextran 70/Hypromellose) 15 Ml Drops 1 Drop EACHEYE QID Miralax (Polyethylene Glycol 3350) 17 Gm Powd.pack 17 Gm PO PRN Q8HRS PRN Artificial Tears Eye Oint (Mineral Oil/Petrolatum,White) 3.5 Gm Oint...g. 1 Drop OU HS Levothyroxine Sodium 75 Mcg Tablet 75 Mcg PO DAILYAC Latanoprost 2.5 Ml Drops 1 Drop EACHEYE QHS Gabapentin 100 Mg Capsule 100 Mg PO TID Excedrin Extra Strength Caplet (Aspirin/Acetaminophen/Caffeine) 1 Each Tablet 1 Tab PO PRN Q6HRS PRN MDD 8 tablets in 24 hours Eliquis (Apixaban) 5 Mg Tablet 5 Mg PO BID Sinemet 25-100 Mg Tablet (Carbidopa/Levodopa) 1 Each Tablet 1 Tab PO QID Brimonidine Tartrate 5 Ml Drops 1 Drop OU BID Atorvastatin Calcium 10 Mg Tablet 10 Mg PO QHS Tylenol (Acetaminophen) 325 Mg Tablet 650 Mg PO PRN Q6HRS PRN I have reviewed the current psychotropics carefully including drug interactions. Risk benefit ratio favors no change other than as noted in my dictated progress note. Diagnosis: Problems: (1) Impulse control disorder (2) Dementia, vascular, with delusions (3) Bipolar affective, mixed, sev w/ psych (4) Anxiety disorder HERMILO LEWIS MD Apr 01, 2018 22:11
--- NOTE | 2018-04-02 14:23 | PN ---
DATE: 03/31/2018 PSYCHIATRIC PROGRESS NOTE This is a late entry 03/31/2018, covers elements not covered in my initial note. SUBJECTIVE: I met with the patient in the evening. The patient slept 6-1/2 hours previous evening. Her rash is worse around the left side breast folds, nursing staff when Dr. Stinson addressing this. Otherwise, she is less agitated. REVIEW OF SYSTEMS: Ambulation impaired, in wheelchair. No CV, , pulmonary, eye, ENT system symptoms on review. MENTAL STATUS EXAM: Reasonably oriented. Speech coherent, less pressured. Abstraction fair, computation impaired, language function intact. Mood and affect still somewhat labile, but improved. LABORATORY DATA: Reviewed. IMPRESSION: Bipolar 1 disorder, mixed with psychotic features, in partial remission. Rest unchanged. PLAN: No change from initial note. MAN Dewayne LEWIS MD DR: LIZZETH/david JOB#: [id number] / [id number]
--- NOTE | 2018-04-02 22:22 | DS ---
DATE OF DISCHARGE: 04/01/2018 DISCHARGE SUMMARY/PSYCHIATRIC PROGRESS NOTE This is a late entry date of service 04/01/2018, covers elements not covered in my initial note. I met with the patient individually. REASON FOR ADMISSION: Please refer to the admission history for details. Briefly, the patient is a 62-year-old female referred to us from [facility], referred by primary care physician and psychiatrist on account of increased agitation, aggression, being combative with staff at the care home. She was throwing things, was manic, grandiose, disorganized, and psychotic. She had failed outpatient psychiatric interventions. SIGNIFICANT FINDINGS AND CLINICAL COURSE: Following admission, the patient was seen daily individually by myself, followed medically per Dr. Stinson/Dr. Adam. I reviewed extensive records from the [facility] Psychiatry Department, where she was hospitalized in 1986 with a diagnosis of schizoaffective disorder, bipolar type versus schizophrenia. She remained extremely disorganized, labile, pressured speech, and psychotic at admission. Adjustments were made in her psychotropics. She seemed to respond to a combination of Cogentin 1 mg at bedtime, Zyprexa 2.5 mg q.2 hours p.r.n. psychosis, Depakote 500 mg b.i.d. with a valproic acid level therapeutic at 69, Risperdal 0.25 mg a.m. and 0.75 mg at bedtime, and trazodone 50 mg at bedtime, may repeat x 1 for insomnia. Gradually mood appeared to improve and psychotic symptoms subsided. She still was having some pressure of speech, but much improved prior to discharge, 04/01/2018. REVIEW OF SYSTEMS: Ambulation impaired, in wheelchair. No CV, , pulmonary, eye, ENT system symptoms on review. MENTAL STATUS EXAM: Reasonably oriented. Speech as noted, abstraction fair, computation impaired, language function intact, attention span short. Mood and affect remained much improved, less manic, less psychotic, with still some pressure of speech, but much better. CONDITION AT DISCHARGE: Improved. FINAL DIAGNOSES: Schizoaffective disorder, bipolar type, mixed with psychotic features, in partial remission; anxiety disorder, unspecified; impulse control disorder, unspecified, and impaired ambulation. Rest unchanged from admission. DISCHARGE MEDICATIONS: Please refer to the MRAD. DISCHARGE INSTRUCTIONS: The patient's psychiatric and medical followup at the care home. Time for discharge day management greater than 30 minutes. HERMILO LEWIS MD DR: LIZZETH/david JOB#: [id number] / [id number]
== END 2018-04-01 16:31 | DRG 885 ==
LOC: GEROPSY 03:30 → UNDOADMIN 03:30 → GEROPSY 03-14 19:18
PROVIDERS: ADMIT Psychiatry & Neurology Psychiatry; ATTEND Psychiatry & Neurology Psychiatry
DX: F31.64 Bipolar disorder, current episode mixed, severe, with psychotic features (principal); B37.0 Candidal stomatitis; N39.0 Urinary tract infection, site not specified; Z68.42 Body mass index [BMI] 45.0-49.9, adult; E03.9 Hypothyroidism, unspecified; E66.9 Obesity, unspecified; E78.5 Hyperlipidemia, unspecified; F01.50 Vascular dementia, unspecified severity, without behavioral disturbance, psychotic disturbance, mood disturbance, and anxiety; F09 Unspecified mental disorder due to known physiological condition; M19.90 Unspecified osteoarthritis, unspecified site; F41.9 Anxiety disorder, unspecified; F63.9 Impulse disorder, unspecified; G20 Parkinson's disease; H40.9 Unspecified glaucoma; Z79.899 Other long term (current) drug therapy; Z99.3 Dependence on wheelchair; Z88.1 Allergy status to other antibiotic agents; Z88.2 Allergy status to sulfonamides
CPT/HCPCS: 36415; 70450; 80053; 80061; 80164; 81001; 82306; 82607; 83036; 83540; 83550; 83735; 84436; 84443; 84480; 85025; 86592; 87086